=== PATIENT | female | born 1980 | race Caucasian/White ===

== ENCOUNTER 2018-04-06 14:26 | Inpatient (IN) ==
[2018-04-06] MEDS ORDERED: NS 1000 ML 1,000 ML ONE ×5 (14:27→23:48)
[2018-04-06] MEDS ORDERED: NS 1000 ML 1,000 ML IV ONE ×3 (15:06→16:25)
[2018-04-06 15:22] LABS: BASOPHILS # (AUTO) 0.1 X10^3/uL (0.0-0.1); BASOPHILS % (AUTO) 0.2 % (0.2-1.0); HEMATOCRIT 36.5 % (36.0-47.0); HEMOGLOBIN 11.5 g/dL (12.0-16.0); LYMPHOCYTES # (AUTO) 1.6 X10^3/uL (1.3-2.9); LYMPHOCYTES % (AUTO) 5.9 % (21.0-51.0); MEAN CORPUSCULAR HEMOGLOBIN 25.5 pg (27.0-34.0); MEAN CORPUSCULAR HGB CONC 31.4 g/dL (33.0-35.0); MEAN CORPUSCULAR VOLUME 81.2 fL (80.0-100.0); MEAN PLATELET VOLUME 9.6 fL (7.4-11.0); MONOCYTES # (AUTO) 1.2 x10^3/uL (0.3-0.8); MONOCYTES % (AUTO) 4.3 % (0.0-13.0); NEUTROPHILS # (AUTO) 24.3 x10^3/uL (2.2-4.8); NEUTROPHILS % (AUTO) 89.6 % (42.0-75.0); PLATELET COUNT 359 X10^3/uL (150.0-450.0); RED CELL DISTRIBUTION WIDTH 14.9 % (11.6-16.5)
[2018-04-06 15:26] LABS: WHITE BLOOD COUNT 27.8 X10^3/uL (3.6-10.0)
[2018-04-06 15:32] LABS: BAND NEUTROPHILS % 6 % (0-10); HYPOCHROMASIA SLIGHT; PLATELET MORPHOLOGY COMMENT NORMAL (NORMAL)
[2018-04-06 15:33] LABS: BURR CELLS SLIGHT
[2018-04-06 15:34] LABS: ABG BASE EXCESS -7.5 mmol/L (-2.0-2.0); ABG HCO3 17.3 mmol/L (22-26); FRACTIONATED INSPIRED OXYGEN 28
[2018-04-06 15:48] LABS: BILIRUBIN,URINE NEGATIVE (NEGATIVE); BLOOD/HEMOGLOBIN,URINE NEGATIVE (NEGATIVE); GLUCOSE, URINE 4+ (NEGATIVE); KETONES,URINE 2+ (NEGATIVE); LEUKOCYTE ESTERASE ,URINE NEGATIVE (NEGATIVE); NITRITES,URINE NEGATIVE (NEGATIVE); PROTEIN,URINE NEGATIVE (NEGATIVE); UROBILINOGEN,URINE NORMAL (NORMAL)
[2018-04-06 15:57] LABS: APPEARANCE,URINE HAZY (CLEAR); COLOR,URINE YELLOW (YELLOW)
[2018-04-06] MEDS ORDERED: LEVAQUIN PREMIX IV 750 MG 750 MG/150 ML BAG IV ONE (15:58)
[2018-04-06 16:05] LABS: ALBUMIN 3.3 g/dL (3.4-5.0); CALCIUM 8.3 mg/dL (8.5-10.1); CARBON DIOXIDE 18.7 mmol/L (21-32); COR CA(FOR HYPOALB) 8.9 mg/dL (8.5-10.1); CREATININE 1.68 mg/dL (0.55-1.02); TOTAL PROTEIN 6.7 g/dL (6.4-8.2)
--- NOTE | 2018-04-06 16:40 | DR.GENAD ---
HPI Time Seen Time Seen by Provider: 04/06/18 15:06 Complaint/Symptoms Chief Complaint:: EMS OUT TO PT WITH > GLUCOSE AND UPON ARRIVAL EMS MONITOR READS HIGH, NS BOLUS STARTED PT IS LETHARGIC AND SHE HAS A DM PUMP ON AND 02 2 LPM INFUSING AND SHALLOW RESP PER EMS WITH A BP OF 70/30'S ,,BR Self Treatment fo Chief Complaint: SPOUSE SAYS PT HAS BEEN HAVING N/V FOR DAYS AND SHE HAS BEEN HAVING AMS ,BR Source History Provided: Patient and EMS Mode of Arrival Mode of Arrival: EMS Timing Onset of Chief Complaint: 04/05/18 PMH PMH Past Medical History: Yes Past Medical History: Anxiety, Arthritis and Diabetes Past Surgical History: Yes Surgical History: Cholecystectomy and [employer] Surgery Family History History of Family Medical Conditions: Yes Family Medical History: Diabetes Mellitus Social History Does patient currently use any type of tobacco product: No Have you used tobacco products in the last 12 months: No Type of Tobacco Use: None Does any household member use tobacco: No Alcohol Use: None Do you use any recreational Drugs:: No Lives With: Family Lives Where: Home infectious screening In the last 2 months have you had wt loss of >10#?: NO Have you had fever, night sweats or hemotysis?: No Have you traveled outside the country in the last 6 months?: No Isolation: Standard PE Vital Signs Vitals: Temperature 99.3 F Pulse Rate 84 Respiratory Rate 17 Blood Pressure [Right Arm] 125/53 Blood Pressure 91/51 O2 Sat by Pulse Oximetry 99 General Limitations: No Limitations and Language Barrier General Appearance: Alert and In No Apparent Distress Head Head Exam: Normal Inspection, Atraumatic and Normocephalic Eyes Eye exam: Normal Appearance, PERRL and EOMI ENT ENT Exam: Normal Exam and Normal Oropharynx External Ear Exam: Normal External Inspection TM/Canal Exam: Bilateral: Normal Nose Exam: Normal Nose Exam Mouth Exam: Normal Inspection Throat Exam: Normal Inspection Neck Neck Exam: Normal Inspection Chest Chest Inspection: Normal Inspection Respiratory Respiratory Exam: Normal Lung Sounds Bilat Respiratory Exam: Bilateral: Clear to Auscultation Cardiovascular Cardiovascular Exam: Regular Rate and Bradycardia Abdominal Exam Abdominal Exam: Normal Inspection Extremities Extremities Exam: Normal Inspection Neurologic Neurological Exam: Other (lethargic) Skin Skin Exam: Warm, Dry and Intact COURSE Treatment Treatment: Bolus of 2L NS w/o change in BP or sensorium, will give dobutamine to increase BP. ROR Labs Reviewed Laboratory Results Reviewed?: Yes Result Diagrams: 04/07/18 05:38 04/07/18 05:38 Laboratory: WBC 29.5 X10^3/uL (3.6-10.0) H 04/07/18 05:38 RBC 4.26 X10^6/uL (3.5-5.4) 04/07/18 05:38 Hgb 10.7 g/dL (12.0-16.0) L 04/07/18 05:38 Hct 33.6 % (36.0-47.0) L 04/07/18 05:38 MCV 78.8 fL (80.0-100.0) L 04/07/18 05:38 MCH 25.2 pg (27.0-34.0) L 04/07/18 05:38 MCHC 32.0 g/dL (33.0-35.0) L 04/07/18 05:38 RDW 14.6 % (11.6-16.5) 04/07/18 05:38 Plt Count 300 X10^3/uL (150.0-450.0) 04/07/18 05:38 Plt Count Comment Adequate (ADEQUATE) 04/07/18 05:38 MPV 9.0 fL (7.4-11.0) 04/07/18 05:38 Neut % (Auto) 87.1 % (42.0-75.0) H 04/07/18 05:38 Lymph % (Auto) 5.9 % (21.0-51.0) L 04/07/18 05:38 [place] % (Auto) 5.7 % (0.0-13.0) 04/07/18 05:38 Eos % (Auto) 1.3 % (0.9-2.9) 04/07/18 05:38 Baso % (Auto) 0 % (0.2-1.0) L 04/07/18 05:38 Neut # (Auto) 25.7 x10^3/uL (2.2-4.8) H 04/07/18 05:38 Lymph # (Auto) 1.7 X10^3/uL (1.3-2.9) 04/07/18 05:38 [place] # (Auto) 1.7 x10^3/uL (0.3-0.8) H 04/07/18 05:38 Eos # (Auto) 0.4 x10^3/uL (0.0-0.2) H 04/07/18 05:38 Baso # (Auto) 0.0 X10^3/uL (0.0-0.1) 04/07/18 05:38 Absolute Nucleated RBC 0.0 /100WBC 04/07/18 05:38 Total Counted 100 04/07/18 05:38 Neutrophils % (Manual) 82 % (39-76) H 04/07/18 05:38 Band Neutrophils % 7 % (0-10) 04/07/18 05:38 Lymphocytes % (Manual) 8 % (13-43) L 04/07/18 05:38 Monocytes % (Manual) 3 % (4-9) L 04/07/18 05:38 Plt Morphology Comment Normal (NORMAL) 04/07/18 05:38 RBC Morphology Abnormal (NORMAL) A 04/07/18 05:38 Hypochromasia Slight A 04/07/18 05:38 Adriana Cells Slight A 04/06/18 15:40 Sample Site Rbr 04/06/18 15:19 ABG pH 7.340 (7.35-7.45) L 04/06/18 15:19 ABG pCO2 32.0 mmHg (35.0-45.0) L 04/06/18 15:19 ABG pO2 112.0 mmHg (80.0-100.0) H 04/06/18 15:19 ABG HCO3 17.3 mmol/L (22-26) L* 04/06/18 15:19 ABG O2 Saturation 98.0 % (90-100) 04/06/18 15:19 ABG Base Excess -7.5 mmol/L (-2.0-2.0) L 04/06/18 15:19 Kristopher Test N/a 04/06/18 15:19 A-a Gradient 48.0 mmHg 04/06/18 15:19 FiO2 28 04/06/18 15:19 Blood Gas Comments Pt td well elj 04/06/18 15:19 Sodium 139 mmol/L (136-145) 04/07/18 05:38 Corrected Sodium 142 mmol/L (136-145) 04/07/18 05:38 Potassium 4.5 mmol/L (3.5-5.1) 04/07/18 05:38 Chloride 107 mmol/L (98-107) 04/07/18 05:38 Carbon Dioxide 17.3 mmol/L (21-32) L 04/07/18 05:38 BUN 37 mg/dL (7-18) H 04/07/18 05:38 Creatinine 1.25 mg/dL (0.55-1.02) H 04/07/18 05:38 Est GFR (MDRD) Af Amer > 60 (>60) 04/07/18 05:38 Est GFR (MDRD) Non-Af 51 (>60) L 04/07/18 05:38 Glucose 233 mg/dL (65-99) H 04/07/18 05:38 POC Glucose (mg/dL) 234 mg/dL (65-99) H 04/07/18 05:36 Lactic Acid 3.6 mmol/L (0.4-2.0) H 04/06/18 20:28 Calcium 7.9 mg/dL (8.5-10.1) L 04/07/18 05:38 Corrected Calcium 8.7 mg/dL (8.5-10.1) 04/07/18 05:38 Magnesium 2.4 mg/dL (1.7-2.9) 04/06/18 17:52 Total Bilirubin 0.30 mg/dL (0.2-1.0) 04/07/18 05:38 AST 46 Units/L (15-37) H 04/07/18 05:38 ALT 70 Units/L (12-78) 04/07/18 05:38 Alkaline Phosphatase 153 Units/L (46-116) H 04/07/18 05:38 Lactate Dehydrogenase 147 Units/L (81-234) 04/06/18 15:40 C-Reactive Protein 70.40 mg/L (0-3.0) H 04/06/18 15:40 Total Protein 6.4 g/dL (6.4-8.2) 04/07/18 05:38 Albumin 3.0 g/dL (3.4-5.0) L 04/07/18 05:38 Globulin 3.4 g/dL (2.5-4.5) 04/07/18 05:38 Albumin/Globulin Ratio 0.9 Ratio (1.1-2.1) L 04/07/18 05:38 Specimen Type Catherized urine 04/06/18 15:37 Urine Color Yellow (YELLOW) 04/06/18 15:37 Urine Appearance Hazy (CLEAR) 04/06/18 15:37 Urine pH 5.0 (5.0 - 8.0) 04/06/18 15:37 Ur Specific [place] 1.010 (1.000-1.030) 04/06/18 15:37 Urine Protein Negative (NEGATIVE) 04/06/18 15:37 Urine Glucose (UA) 4+ (NEGATIVE) 04/06/18 15:37 Urine Ketones 2+ (NEGATIVE) 04/06/18 15:37 Urine Occult Blood Negative (NEGATIVE) 04/06/18 15:37 Urine Nitrite Negative (NEGATIVE) 04/06/18 15:37 Urine Bilirubin Negative (NEGATIVE) 04/06/18 15:37 Urine Urobilinogen Normal (NORMAL) 04/06/18 15:37 Ur Leukocyte Esterase Negative (NEGATIVE) 04/06/18 15:37 Urine Opiates Screen Negative (NEG=<300) 04/06/18 15:37 Urine Methadone Screen Negative (NEG=<300) 04/06/18 15:37 Ur Barbiturates Screen Negative (NEG=<200) 04/06/18 15:37 Ur Phencyclidine Scrn Negative (NEG=<25) 04/06/18 15:37 Ur Amphetamines Screen Negative (NEG=<1000) 04/06/18 15:37 U Benzodiazepines Scrn Negative (NEG=<200) 04/06/18 15:37 Urine Cocaine Screen Negative (NEG=<300) 04/06/18 15:37 U Marijuana (THC) Screen Negative (NEG=<50) 04/06/18 15:37 Acetone, Semi-Quant Small (NEGATIVE) H 04/07/18 05:38
[2018-04-06] MEDS ORDERED: HumuLIN R IV ONE (16:52)
[2018-04-06] MEDS ORDERED: NS 100 ML IV 100 ML IV ONE (16:55)
[2018-04-06] MEDS ORDERED: HumuLIN R ONE (16:57)
[2018-04-06] MEDS ORDERED: DOBUTAMINE HCL 1,000 MG in D5W 250 ML IV 170 ML IV PRN (17:09)
[2018-04-06] MEDS ORDERED: ROMAZICON INJ 0.5 MG ONE (17:56)
[2018-04-06] MEDS: ROMAZICON INJ 0.5 MG IVP ONE ×2 (17:58→18:17)
[2018-04-06] MEDS: NS 1000 ML 1,000 ML IV ONE (19:00)
[2018-04-06] MEDS: OTBSDRIP XX SCH ×3 (20:23→23:52)
[2018-04-06] MEDS ORDERED: NORCO 5/325 MG TAB PO PRN (20:24)
[2018-04-06] MEDS: SNACK - Diabetic Appropriate PO SCH (22:11)
[2018-04-06 23:04] VITALS: BMI 27.9
[2018-04-07] MEDS: PERCOCET TAB 5/325 MG PO PRN ×3 (00:30→20:03)
[2018-04-07] MEDS: ZOFRAN INJ 4 MG VIAL IVP PRN ×2 (00:30→18:42)
[2018-04-07] MEDS: NS 1000 ML 1,000 ML IV ONE (01:34)
[2018-04-07] MEDS: OTBSDRIP XX SCH ×2 (01:46→03:54)
[2018-04-07] MEDS: HumuLIN R SUBCUT PRN ×6 (01:51→20:43)
[2018-04-07] MEDS: VALIUM PO PRN ×2 (03:25→12:07)
[2018-04-07] MEDS: NS 1000 ML 1,000 ML IV SCH ×4 (04:00→20:03)
[2018-04-07 06:36] LABS: BASOPHILS % (AUTO) 0 % (0.2-1.0); EOSINOPHILS # (AUTO) 0.4 x10^3/uL (0.0-0.2); EOSINOPHILS % (AUTO) 1.3 % (0.9-2.9); HEMATOCRIT 33.6 % (36.0-47.0); HEMOGLOBIN 10.7 g/dL (12.0-16.0); LYMPHOCYTES # (AUTO) 1.7 X10^3/uL (1.3-2.9); LYMPHOCYTES % (AUTO) 5.9 % (21.0-51.0); MEAN CORPUSCULAR HEMOGLOBIN 25.2 pg (27.0-34.0); MEAN CORPUSCULAR VOLUME 78.8 fL (80.0-100.0); MONOCYTES # (AUTO) 1.7 x10^3/uL (0.3-0.8); MONOCYTES % (AUTO) 5.7 % (0.0-13.0); NEUTROPHILS # (AUTO) 25.7 x10^3/uL (2.2-4.8); NEUTROPHILS % (AUTO) 87.1 % (42.0-75.0); PLATELET COUNT 300 X10^3/uL (150.0-450.0); RED BLOOD COUNT 4.26 X10^6/uL (3.5-5.4); RED CELL DISTRIBUTION WIDTH 14.6 % (11.6-16.5); WHITE BLOOD COUNT 29.5 X10^3/uL (3.6-10.0)
[2018-04-07 07:05] LABS: ALANINE AMINOTRANSFERASE 70 Units/L (12-78); ALKALINE PHOSPHATASE 153 Units/L (46-116); ASPARTATE AMINO TRANSFERASE 46 Units/L (15-37); BLOOD UREA NITROGEN 37 mg/dL (7-18); CALCIUM 7.9 mg/dL (8.5-10.1); CARBON DIOXIDE 17.3 mmol/L (21-32); CHLORIDE 107 mmol/L (98-107); COR CA(FOR HYPOALB) 8.7 mg/dL (8.5-10.1); COR NA(FOR HYPERGLY) 142 mmol/L (136-145); CREATININE 1.25 mg/dL (0.55-1.02); SODIUM 139 mmol/L (136-145); TOTAL PROTEIN 6.4 g/dL (6.4-8.2); eGFR NON BLACK RACES 51 (>60)
[2018-04-07 07:09] LABS: BAND NEUTROPHILS % 7 % (0-10)
[2018-04-07 07:10] LABS: HYPOCHROMASIA SLIGHT; PLATELET MORPHOLOGY COMMENT NORMAL (NORMAL)
[2018-04-07] MEDS ORDERED: LEVAQUIN PREMIX IV 750 MG 750 MG/150 ML BAG IV SCH (09:00)
[2018-04-07] MEDS: LEVAQUIN PREMIX IV 500 MG 500 MG/100 ML BAG IV SCH (10:07)
[2018-04-07] MEDS ORDERED: SALINE 3% 15 ML NEB TX NEB ONE (12:26)
--- NOTE | 2018-04-07 13:47 | DR.H&P ---
H&P - History & Physical for Day of: H&P Date: 04/06/18 - Chief Complaint Chief Complaint: AMS - History of Present Illness History of Present Illness: 37 WF ER ADMISSION AFTER PRESENTING WITH EMS, ALTERED MENTAL STATUS, KNOWN TYPE I DM, HYPREGLYCEMIA, CO CHEST COLD FOR SEVERAL DAYS, N/V AND ELEVATED BLOOD SUGAR. PT FAMILY REPORTS SHE HAS HX OF "KIDNEY INFECTIONS" CAUSING CONFUSION, AMS. PT HAD GLUCOSE >700 IN ER, BUN [address] PT [address] HEAD W/O ACUTE FINDINGS. PT STARTED ON INSULIN THERAPY, IV ABTX, IV HYDRATION, SUPPLEMENTAL O2, ADMITTED TO ICU - Past Medical History Past Medical History: Diabetes, Anxiety, Arthritis - Past Surgical History Surgical History: Cholecystectomy, [employer] Surgery - Family History Family Medical History: Diabetes Mellitus - Social History Does patient currently use any type of tobacco product: No Have you used tobacco products in the last 12 months: No Type of Tobacco Use: None Does any household member use tobacco: No Alcohol Use: None Drug Use: None - Medications Home Medications: promethazine [From Phenergan] Allergy (Unknown, Verified 04/07/18 00:19) ceftriaxone [From Rocephin] Allergy (Verified 04/06/18 15:20) Latex, Natural Rubber Allergy (Verified 04/07/18 00:59) meperidine [From Demerol] Allergy (Verified 04/06/18 15:20) penicillin V Allergy (Verified 04/06/18 15:20) tape Allergy (Uncoded 04/07/18 00:59) CONTINUE taking the following medications dicyclomine 10 mg PO TIDWM 04/06/18 [History] escitalopram oxalate 10 mg PO DAILY 04/06/18 [History] gabapentin 300 mg PO HS 04/06/18 [History] hydrochlorothiazide 12.5 tab/day PO DAILY PRN 04/06/18 [History] oxycodone-acetaminophen 1 tab PO BID PRN 04/06/18 [History] diphenhydramine HCl [Benadryl] 25 mg PO DAILY PRN 04/07/18 [History] ergocalciferol (vitamin D2) 50,000 unit PO MONTHLY 04/07/18 [History] insulin aspart U-100 [Novolog U-100 Insulin aspart] 100 units CONTINUOUS SUBCUTANEOUS INFUSION DAILY 04/07/18 [History] loratadine 10 mg PO DAILY 04/07/18 [History] montelukast 10 mg PO DAILY 04/07/18 [History] pantoprazole 40 mg PO DAILY 04/07/18 [History] pravastatin 20 mg PO DAILY 04/07/18 [History] - Review of Systems Constitutional: Malaise Eyes: No Symptoms Reported ENT: No Symptoms Reported Respiratory: Cough Cardiovascular: No Symptoms Reported Gastrointestinal: Nausea, Vomiting. denies: Abdominal Pain, Constipation Genitourinary: No Symptoms Reported Musculoskeletal: No Symptoms Reported Skin: No Symptoms Reported Neurological: Weakness, Confusion - Physical Exam Vital Signs: Temperature 98.5 F Pulse Rate 89 Respiratory Rate 21 Blood Pressure [Right Arm] 125/53 Blood Pressure 105/54 O2 Sat by Pulse Oximetry 97 Oriented: Person Eyes: Normal Ear: Normal Nose: Normal Throat: Normal Respiratory: RLL Diminished, LLL Diminished Cardiovascular: Normal : Normal Auscultation: Bowel Sounds: Normal Palpation: Normal Tenderness: Normal Skin: Normal Musculoskeletal: Normal Psychiatric: Anxiety Speech Pattern: Delayed - Assessment/Plan (1) Altered mental status Status: Acute Plan: ADMIT ICU, VERIFY HOME MEDS. CONTINUOUS RESP THERAPY, SUPPLEMENTAL O2. CARDIAC AND BP MONITORING. ARCOS CATH WITH STRICT I & OS, CXR AND CT HEAD IN ER. ACETONE, BS CONTROL, INSULIN, GENTLE HYDRATION. REPEAT AM LABS, ABG ON ADMISSION (2) DKA (diabetic ketoacidosis) Status: Acute (3) Leukocytosis Status: Acute (4) Acute bronchitis Status: Acute - Allergies Allergies/Adverse Reactions: Allergies Allergy/AdvReac Type Severity Reaction Status Date / Time promethazine [From Phenergan] Allergy Unknown Verified 04/07/18 00:19 ceftriaxone [From Rocephin] Allergy Verified 04/06/18 15:20 Latex, Natural Rubber Allergy Verified 04/07/18 00:59 meperidine [From Demerol] Allergy Verified 04/06/18 15:20 penicillin V Allergy Verified 04/06/18 15:20 tape Allergy Uncoded 04/07/18 00:59
[2018-04-07 14:51] LABS: LACTIC ACID 1.1 mmol/L (0.4-2.0)
[2018-04-07] MEDS: ZITHROMAX INJ 500 MG VIAL 500 MG in NS 250 ML IV 250 ML IV SCH (14:56)
[2018-04-07 16:03] LABS: ABG BASE EXCESS -0.9 mmol/L (-2.0-2.0); ABG HCO3 23.5 mmol/L (22-26); FRACTIONATED INSPIRED OXYGEN 21
[2018-04-07] MEDS: SNACK - Diabetic Appropriate PO SCH (20:03)
[2018-04-07] MEDS: MILK OF MAGNESIA PO SCH (21:32)
[2018-04-07] MEDS: COLACE CAP 100 MG PO SCH (21:32)
[2018-04-08] MEDS: MAALOX or MYLANTA PO PRN ×2 (05:06→19:04)
[2018-04-08] MEDS: NS 1000 ML 1,000 ML IV SCH ×2 (05:06→19:03)
[2018-04-08] MEDS: HumuLIN R SUBCUT PRN ×4 (05:58→20:15)
[2018-04-08 06:13] LABS: BASOPHILS % (AUTO) 0.3 % (0.2-1.0); EOSINOPHILS % (AUTO) 0.2 % (0.9-2.9); HEMATOCRIT 36.1 % (36.0-47.0); HEMOGLOBIN 11.7 g/dL (12.0-16.0); LYMPHOCYTES # (AUTO) 3.1 X10^3/uL (1.3-2.9); LYMPHOCYTES % (AUTO) 16.7 % (21.0-51.0); MEAN CORPUSCULAR HEMOGLOBIN 25.3 pg (27.0-34.0); MEAN CORPUSCULAR HGB CONC 32.5 g/dL (33.0-35.0); MEAN CORPUSCULAR VOLUME 77.9 fL (80.0-100.0); MEAN PLATELET VOLUME 9.1 fL (7.4-11.0); MONOCYTES # (AUTO) 0.6 x10^3/uL (0.3-0.8); MONOCYTES % (AUTO) 3.3 % (0.0-13.0); NEUTROPHILS # (AUTO) 14.7 x10^3/uL (2.2-4.8); NEUTROPHILS % (AUTO) 79.5 % (42.0-75.0); PLATELET COUNT 250 X10^3/uL (150.0-450.0); RED BLOOD COUNT 4.63 X10^6/uL (3.5-5.4); RED CELL DISTRIBUTION WIDTH 14.9 % (11.6-16.5); WHITE BLOOD COUNT 18.5 X10^3/uL (3.6-10.0)
[2018-04-08 06:37] LABS: ALANINE AMINOTRANSFERASE 79 Units/L (12-78); ALBUMIN 3.1 g/dL (3.4-5.0); ALKALINE PHOSPHATASE 164 Units/L (46-116); ASPARTATE AMINO TRANSFERASE 89 Units/L (15-37); BLOOD UREA NITROGEN 18 mg/dL (7-18); CARBON DIOXIDE 23.2 mmol/L (21-32); CHLORIDE 106 mmol/L (98-107); COR CA(FOR HYPOALB) 8.7 mg/dL (8.5-10.1); COR NA(FOR HYPERGLY) 141 mmol/L (136-145); SODIUM 138 mmol/L (136-145); TOTAL PROTEIN 6.6 g/dL (6.4-8.2); eGFR NON BLACK RACES > 60 (>60)
[2018-04-08 07:05] LABS: PLATELET MORPHOLOGY COMMENT NORMAL (NORMAL)
[2018-04-08 07:06] LABS: HYPOCHROMASIA SLIGHT
[2018-04-08 07:07] LABS: BURR CELLS SLIGHT; OVALOCYTES SLIGHT
[2018-04-08] MEDS: LEVAQUIN PREMIX IV 500 MG 500 MG/100 ML BAG IV SCH (08:27)
[2018-04-08] MEDS: ZITHROMAX INJ 500 MG VIAL 500 MG in NS 250 ML IV 250 ML IV SCH (08:27)
[2018-04-08] MEDS: PEPCID 20 MG IV PREMIX* 20 MG/50 ML BAG IV SCH ×2 (08:27→20:01)
[2018-04-08] MEDS: ZOFRAN INJ 4 MG VIAL IVP PRN (09:12)
--- NOTE | 2018-04-08 14:14 | PCM.PROG ---
Progress Note - Progress Note for Day of Date of Exam: 04/07/18 - Subjective Subjective: 37 WF ER ADMISSION WITH AMS, HYPERGLYCEMIA. PT AWAKE AND ALERT THIS AM, DENIES ANY PAIN. CO RECENT COUGH WITH CHEST CONGESTION, AND HAS HAD EPISODE OF CONFUSION RELATED TO UTI IN THE PAST. PT WBC29.5 HGB 10.7 BUN 37/CREAT 1.25. CXR CLEAR ON ADMISSION, CULTURE PENDING AT THIS TIME. PT ON IV LEVAQUIN, ADDED ZITHROMAX IV, RESP CONSULT. PLAN TO CONTINUE BS CONTROL, IV HYDRATION. I & OS, REPEAT AM LABS, REPEAT ACETONE- SMALL, BS IMPROVING - Past Medical Family Social History Past Med/Fam/Surg Hx: No changes since H&P Allergies: Allergies promethazine [From Phenergan] Allergy (Unknown, Verified 04/07/18 00:19) ceftriaxone [From Rocephin] Allergy (Verified 04/06/18 15:20) Latex, Natural Rubber Allergy (Verified 04/07/18 00:59) meperidine [From Demerol] Allergy (Verified 04/06/18 15:20) penicillin V Allergy (Verified 04/06/18 15:20) tape Allergy (Uncoded 04/07/18 00:59) - Review of Systems ROS: No change since H&P - Vital Signs and I&O's Vital Signs: Temperature 98.0 F Pulse Rate 78 Respiratory Rate 34 Blood Pressure [Right Arm] 125/53 Blood Pressure 100/56 O2 Sat by Pulse Oximetry 96 Intake and Output: Intake & Output 04/06/18 04/07/18 04/08/18 04/09/18 11:59 11:59 11:59 11:59 Intake Total 3539 / 3539 4702 / 4702 Output Total 1500 / 1500 850 / 850 Balance 2038 / 2038 3852 / 3852 - Physical Exam Oriented: Normal Eyes: Normal Ear: Normal Nose: Normal Throat: Normal Respiratory: Diminished Cardiovascular: Normal : Normal Auscultation: Bowel Sounds: Normal Tenderness: Normal Skin: Normal Musculoskeletal: Normal Psychiatric: Anxiety Speech Pattern: Clear, Appropriate - Laboratory and Diagnostics Result Diagrams: 04/08/18 05:14 04/08/18 05:14 Labs: 04/06/18 20:28 Blood Blood Culture - Preliminary 04/06/18 14:55 Blood Blood Culture - Preliminary 04/07/18 16:40 Sputum - Expectorated Sputum Sputum Culture - Preliminary 04/07/18 16:40 Sputum - Expectorated Sputum - Final Laboratory WBC 18.5 X10^3/uL (3.6-10.0) H D 04/08/18 05:14 RBC 4.63 X10^6/uL (3.5-5.4) 04/08/18 05:14 Hgb 11.7 g/dL (12.0-16.0) L 04/08/18 05:14 Hct 36.1 % (36.0-47.0) 04/08/18 05:14 MCV 77.9 fL (80.0-100.0) L 04/08/18 05:14 MCH 25.3 pg (27.0-34.0) L 04/08/18 05:14 MCHC 32.5 g/dL (33.0-35.0) L 04/08/18 05:14 RDW 14.9 % (11.6-16.5) 04/08/18 05:14 Plt Count 250 X10^3/uL (150.0-450.0) 04/08/18 05:14 Plt Count Comment Adequate (ADEQUATE) 04/08/18 05:14 MPV 9.1 fL (7.4-11.0) 04/08/18 05:14 Neut % (Auto) 79.5 % (42.0-75.0) H 04/08/18 05:14 Lymph % (Auto) 16.7 % (21.0-51.0) L 04/08/18 05:14 [place] % (Auto) 3.3 % (0.0-13.0) 04/08/18 05:14 Eos % (Auto) 0.2 % (0.9-2.9) L 04/08/18 05:14 Baso % (Auto) 0.3 % (0.2-1.0) 04/08/18 05:14 Neut # (Auto) 14.7 x10^3/uL (2.2-4.8) H 04/08/18 05:14 Lymph # (Auto) 3.1 X10^3/uL (1.3-2.9) H 04/08/18 05:14 [place] # (Auto) 0.6 x10^3/uL (0.3-0.8) 04/08/18 05:14 Eos # (Auto) 0.0 x10^3/uL (0.0-0.2) 04/08/18 05:14 Baso # (Auto) 0.0 X10^3/uL (0.0-0.1) 04/08/18 05:14 Absolute Nucleated RBC 0.0 /100WBC 04/08/18 05:14 Total Counted 100 04/07/18 05:38 Neutrophils % (Manual) 82 % (39-76) H 04/07/18 05:38 Band Neutrophils % 7 % (0-10) 04/07/18 05:38 Lymphocytes % (Manual) 8 % (13-43) L 04/07/18 05:38 Monocytes % (Manual) 3 % (4-9) L 04/07/18 05:38 Plt Morphology Comment Normal (NORMAL) 04/08/18 05:14 RBC Morphology Abnormal (NORMAL) A 04/08/18 05:14 Hypochromasia Slight A 04/08/18 05:14 Ovalocytes Slight A 04/08/18 05:14 Adriana Cells Slight A 04/08/18 05:14 Sample Site Right brachial 04/07/18 15:48 ABG pH 7.410 (7.35-7.45) 04/07/18 15:48 ABG pCO2 37.0 mmHg (35.0-45.0) 04/07/18 15:48 ABG pO2 80.0 mmHg (80.0-100.0) 04/07/18 15:48 ABG HCO3 23.5 mmol/L (22-26) 04/07/18 15:48 ABG O2 Saturation 96.0 % (90-100) 04/07/18 15:48 ABG Base Excess -0.9 mmol/L (-2.0-2.0) 04/07/18 15:48 Kristopher Test Na 04/07/18 15:48 A-a Gradient 23.0 mmHg 04/07/18 15:48 FiO2 21 04/07/18 15:48 Blood Gas Comments Franko well aw 04/07/18 15:48 Sodium 138 mmol/L (136-145) 04/08/18 05:14 Corrected Sodium 141 mmol/L (136-145) 04/08/18 05:14 Potassium 4.0 mmol/L (3.5-5.1) 04/08/18 05:14 Chloride 106 mmol/L (98-107) 04/08/18 05:14 Carbon Dioxide 23.2 mmol/L (21-32) 04/08/18 05:14 BUN 18 mg/dL (7-18) 04/08/18 05:14 Creatinine 0.90 mg/dL (0.55-1.02) 04/08/18 05:14 Est GFR (MDRD) Af Amer > 60 (>60) 04/08/18 05:14 Est GFR (MDRD) Non-Af > 60 (>60) 04/08/18 05:14 Glucose 219 mg/dL (65-99) H 04/08/18 05:14 POC Glucose (mg/dL) 180 mg/dL (65-99) H 04/08/18 11:28 Lactic Acid 1.1 mmol/L (0.4-2.0) 04/07/18 13:59 Calcium 8.0 mg/dL (8.5-10.1) L 04/08/18 05:14 Corrected Calcium 8.7 mg/dL (8.5-10.1) 04/08/18 05:14 Magnesium 2.4 mg/dL (1.7-2.9) 04/06/18 17:52 Total Bilirubin 0.20 mg/dL (0.2-1.0) 04/08/18 05:14 AST 89 Units/L (15-37) H 04/08/18 05:14 ALT 79 Units/L (12-78) H 04/08/18 05:14 Alkaline Phosphatase 164 Units/L (46-116) H 04/08/18 05:14 Lactate Dehydrogenase 147 Units/L (81-234) 04/06/18 15:40 C-Reactive Protein 70.40 mg/L (0-3.0) H 04/06/18 15:40 Total Protein 6.6 g/dL (6.4-8.2) 04/08/18 05:14 Albumin 3.1 g/dL (3.4-5.0) L 04/08/18 05:14 Globulin 3.5 g/dL (2.5-4.5) 04/08/18 05:14 Albumin/Globulin Ratio 0.9 Ratio (1.1-2.1) L 04/08/18 05:14 Amylase 39 Units/L (25-115) 04/07/18 13:59 Lipase 80 Units/L (73-393) 04/07/18 13:59 Specimen Type Catherized urine 04/06/18 15:37 Urine Color Yellow (YELLOW) 04/06/18 15:37 Urine Appearance Hazy (CLEAR) 04/06/18 15:37 Urine pH 5.0 (5.0 - 8.0) 04/06/18 15:37 Ur Specific [place] 1.010 (1.000-1.030) 04/06/18 15:37 Urine Protein Negative (NEGATIVE) 04/06/18 15:37 Urine Glucose (UA) 4+ (NEGATIVE) 04/06/18 15:37 Urine Ketones 2+ (NEGATIVE) 04/06/18 15:37 Urine Occult Blood Negative (NEGATIVE) 04/06/18 15:37 Urine Nitrite Negative (NEGATIVE) 04/06/18 15:37 Urine Bilirubin Negative (NEGATIVE) 04/06/18 15:37 Urine Urobilinogen Normal (NORMAL) 04/06/18 15:37 Ur Leukocyte Esterase Negative (NEGATIVE) 04/06/18 15:37 Urine Opiates Screen Negative (NEG=<300) 04/06/18 15:37 Urine Methadone Screen Negative (NEG=<300) 04/06/18 15:37 Ur Barbiturates Screen Negative (NEG=<200) 04/06/18 15:37 Ur Phencyclidine Scrn Negative (NEG=<25) 04/06/18 15:37 Ur Amphetamines Screen Negative (NEG=<1000) 04/06/18 15:37 U Benzodiazepines Scrn Negative (NEG=<200) 04/06/18 15:37 Urine Cocaine Screen Negative (NEG=<300) 04/06/18 15:37 U Marijuana (THC) Screen Negative (NEG=<50) 04/06/18 15:37 Acetone, Semi-Quant Small (NEGATIVE) H 04/07/18 05:38 Influenza Type A (PCR) Negative (NEGATIVE) 04/07/18 16:40 Influenza Type B (PCR) Negative (NEGATIVE) 04/07/18 16:40 - Plan (1) Acute bronchitis Status: Acute Plan: CULTURES PENDING. CONTINUE JET NEBS, IV ATBX. SUPPLEMENTAL O2 PRN. BLOOD SUGAR CONTROL, AM LABS. I &OS (2) Altered mental status Status: Resolved Plan: CONTINUOUS RESP THERAPY, SUPPLEMENTAL O2. CARDIAC AND BP MONITORING. ARCOS CATH WITH STRICT I & OS, (3) DKA (diabetic ketoacidosis) Status: Acute (4) Leukocytosis Status: Acute
--- NOTE | 2018-04-08 14:19 | PCM.PROG ---
Progress Note - Progress Note for Day of Date of Exam: 04/08/18 - Subjective Subjective: 37 WF ER ADMISSION WITH AMS, HYPERGLYCEMIA. PT AWAKE AND ALERT THIS AM, DENIES ANY PAIN. CO RECENT COUGH WITH CHEST CONGESTION, AND HAS HAD EPISODE OF CONFUSION RELATED TO UTI IN THE PAST. PT 18.5 HGB 11.7 BUN 18/ CREAT 0.9 CXR CLEAR ON ADMISSION, CULTURE PENDING AT THIS TIME. PT ON IV LEVAQUIN AND ZITHROMAX IV, RESP CONSULT. PLAN TO CONTINUE BS CONTROL.BS 219 THIS AM CO2 23.2. PT CO FALLING ASLEEP WHILE EATING THIS AM. CXR ORDERED R/O ASPIRATION, NO RESP DISTRESS NOTED. - Past Medical Family Social History Past Med/Fam/Surg Hx: No changes since H&P Allergies: Allergies promethazine [From Phenergan] Allergy (Unknown, Verified 04/07/18 00:19) ceftriaxone [From Rocephin] Allergy (Verified 04/06/18 15:20) Latex, Natural Rubber Allergy (Verified 04/07/18 00:59) meperidine [From Demerol] Allergy (Verified 04/06/18 15:20) penicillin V Allergy (Verified 04/06/18 15:20) tape Allergy (Uncoded 04/07/18 00:59) - Review of Systems ROS: No change since H&P - Vital Signs and I&O's Vital Signs: Temperature 98.0 F Pulse Rate 78 Respiratory Rate 34 Blood Pressure [Right Arm] 125/53 Blood Pressure 100/56 O2 Sat by Pulse Oximetry 96 Intake and Output: Intake & Output 04/06/18 04/07/18 04/08/18 04/09/18 11:59 11:59 11:59 11:59 Intake Total 3539 / 3539 4702 / 4702 Output Total 1500 / 1500 850 / 850 Balance 2038 / 2038 3852 / 3852 - Physical Exam Oriented: Normal Eyes: Normal Ear: Normal Nose: Normal Throat: Normal Respiratory: Diminished Cardiovascular: Normal : Normal Auscultation: Bowel Sounds: Normal Tenderness: Normal Skin: Normal Musculoskeletal: Normal Psychiatric: Anxiety Speech Pattern: Clear, Appropriate - Laboratory and Diagnostics Result Diagrams: 04/08/18 05:14 04/08/18 05:14 Labs: 04/06/18 20:28 Blood Blood Culture - Preliminary 04/06/18 14:55 Blood Blood Culture - Preliminary 04/07/18 16:40 Sputum - Expectorated Sputum Sputum Culture - Preliminary 04/07/18 16:40 Sputum - Expectorated Sputum - Final Laboratory WBC 18.5 X10^3/uL (3.6-10.0) H D 04/08/18 05:14 RBC 4.63 X10^6/uL (3.5-5.4) 04/08/18 05:14 Hgb 11.7 g/dL (12.0-16.0) L 04/08/18 05:14 Hct 36.1 % (36.0-47.0) 04/08/18 05:14 MCV 77.9 fL (80.0-100.0) L 04/08/18 05:14 MCH 25.3 pg (27.0-34.0) L 04/08/18 05:14 MCHC 32.5 g/dL (33.0-35.0) L 04/08/18 05:14 RDW 14.9 % (11.6-16.5) 04/08/18 05:14 Plt Count 250 X10^3/uL (150.0-450.0) 04/08/18 05:14 Plt Count Comment Adequate (ADEQUATE) 04/08/18 05:14 MPV 9.1 fL (7.4-11.0) 04/08/18 05:14 Neut % (Auto) 79.5 % (42.0-75.0) H 04/08/18 05:14 Lymph % (Auto) 16.7 % (21.0-51.0) L 04/08/18 05:14 [place] % (Auto) 3.3 % (0.0-13.0) 04/08/18 05:14 Eos % (Auto) 0.2 % (0.9-2.9) L 04/08/18 05:14 Baso % (Auto) 0.3 % (0.2-1.0) 04/08/18 05:14 Neut # (Auto) 14.7 x10^3/uL (2.2-4.8) H 04/08/18 05:14 Lymph # (Auto) 3.1 X10^3/uL (1.3-2.9) H 04/08/18 05:14 [place] # (Auto) 0.6 x10^3/uL (0.3-0.8) 04/08/18 05:14 Eos # (Auto) 0.0 x10^3/uL (0.0-0.2) 04/08/18 05:14 Baso # (Auto) 0.0 X10^3/uL (0.0-0.1) 04/08/18 05:14 Absolute Nucleated RBC 0.0 /100WBC 04/08/18 05:14 Total Counted 100 04/07/18 05:38 Neutrophils % (Manual) 82 % (39-76) H 04/07/18 05:38 Band Neutrophils % 7 % (0-10) 04/07/18 05:38 Lymphocytes % (Manual) 8 % (13-43) L 04/07/18 05:38 Monocytes % (Manual) 3 % (4-9) L 04/07/18 05:38 Plt Morphology Comment Normal (NORMAL) 04/08/18 05:14 RBC Morphology Abnormal (NORMAL) A 04/08/18 05:14 Hypochromasia Slight A 04/08/18 05:14 Ovalocytes Slight A 04/08/18 05:14 [place] Cells Slight A 04/08/18 05:14 Sample Site Right brachial 04/07/18 15:48 ABG pH 7.410 (7.35-7.45) 04/07/18 15:48 ABG pCO2 37.0 mmHg (35.0-45.0) 04/07/18 15:48 ABG pO2 80.0 mmHg (80.0-100.0) 04/07/18 15:48 ABG HCO3 23.5 mmol/L (22-26) 04/07/18 15:48 ABG O2 Saturation 96.0 % (90-100) 04/07/18 15:48 ABG Base Excess -0.9 mmol/L (-2.0-2.0) 04/07/18 15:48 Kristopher Test Na 04/07/18 15:48 A-a Gradient 23.0 mmHg 04/07/18 15:48 FiO2 21 04/07/18 15:48 Blood Gas Comments Franko well aw 04/07/18 15:48 Sodium 138 mmol/L (136-145) 04/08/18 05:14 Corrected Sodium 141 mmol/L (136-145) 04/08/18 05:14 Potassium 4.0 mmol/L (3.5-5.1) 04/08/18 05:14 Chloride 106 mmol/L (98-107) 04/08/18 05:14 Carbon Dioxide 23.2 mmol/L (21-32) 04/08/18 05:14 BUN 18 mg/dL (7-18) 04/08/18 05:14 Creatinine 0.90 mg/dL (0.55-1.02) 04/08/18 05:14 Est GFR (MDRD) Af Amer > 60 (>60) 04/08/18 05:14 Est GFR (MDRD) Non-Af > 60 (>60) 04/08/18 05:14 Glucose 219 mg/dL (65-99) H 04/08/18 05:14 POC Glucose (mg/dL) 180 mg/dL (65-99) H 04/08/18 11:28 Lactic Acid 1.1 mmol/L (0.4-2.0) 04/07/18 13:59 Calcium 8.0 mg/dL (8.5-10.1) L 04/08/18 05:14 Corrected Calcium 8.7 mg/dL (8.5-10.1) 04/08/18 05:14 Magnesium 2.4 mg/dL (1.7-2.9) 04/06/18 17:52 Total Bilirubin 0.20 mg/dL (0.2-1.0) 04/08/18 05:14 AST 89 Units/L (15-37) H 04/08/18 05:14 ALT 79 Units/L (12-78) H 04/08/18 05:14 Alkaline Phosphatase 164 Units/L (46-116) H 04/08/18 05:14 Lactate Dehydrogenase 147 Units/L (81-234) 04/06/18 15:40 C-Reactive Protein 70.40 mg/L (0-3.0) H 04/06/18 15:40 Total Protein 6.6 g/dL (6.4-8.2) 04/08/18 05:14 Albumin 3.1 g/dL (3.4-5.0) L 04/08/18 05:14 Globulin 3.5 g/dL (2.5-4.5) 04/08/18 05:14 Albumin/Globulin Ratio 0.9 Ratio (1.1-2.1) L 04/08/18 05:14 Amylase 39 Units/L (25-115) 04/07/18 13:59 Lipase 80 Units/L (73-393) 04/07/18 13:59 Specimen Type Catherized urine 04/06/18 15:37 Urine Color Yellow (YELLOW) 04/06/18 15:37 Urine Appearance Hazy (CLEAR) 04/06/18 15:37 Urine pH 5.0 (5.0 - 8.0) 04/06/18 15:37 Ur Specific [place] 1.010 (1.000-1.030) 04/06/18 15:37 Urine Protein Negative (NEGATIVE) 04/06/18 15:37 Urine Glucose (UA) 4+ (NEGATIVE) 04/06/18 15:37 Urine Ketones 2+ (NEGATIVE) 04/06/18 15:37 Urine Occult Blood Negative (NEGATIVE) 04/06/18 15:37 Urine Nitrite Negative (NEGATIVE) 04/06/18 15:37 Urine Bilirubin Negative (NEGATIVE) 04/06/18 15:37 Urine Urobilinogen Normal (NORMAL) 04/06/18 15:37 Ur Leukocyte Esterase Negative (NEGATIVE) 04/06/18 15:37 Urine Opiates Screen Negative (NEG=<300) 04/06/18 15:37 Urine Methadone Screen Negative (NEG=<300) 04/06/18 15:37 Ur Barbiturates Screen Negative (NEG=<200) 04/06/18 15:37 Ur Phencyclidine Scrn Negative (NEG=<25) 04/06/18 15:37 Ur Amphetamines Screen Negative (NEG=<1000) 04/06/18 15:37 U Benzodiazepines Scrn Negative (NEG=<200) 04/06/18 15:37 Urine Cocaine Screen Negative (NEG=<300) 04/06/18 15:37 U Marijuana (THC) Screen Negative (NEG=<50) 04/06/18 15:37 Acetone, Semi-Quant Small (NEGATIVE) H 04/07/18 05:38 Influenza Type A (PCR) Negative (NEGATIVE) 04/07/18 16:40 Influenza Type B (PCR) Negative (NEGATIVE) 04/07/18 16:40 - Plan (1) Acute bronchitis Status: Acute Plan: CULTURES PENDING. CONTINUE JET NEBS, IV ATBX. SUPPLEMENTAL O2 PRN. BLOOD SUGAR CONTROL, AM LABS. I &OS (2) Altered mental status Status: Resolved Plan: RESOLVED, DUE TO HYPERGLYCEMIA, ACUTE ILLNESS. CONTINUOUS RESP THERAPY, SUPPLEMENTAL O2. CARDIAC AND BP MONITORING. STRICT I & OS, (3) DKA (diabetic ketoacidosis) Status: Acute (4) Leukocytosis Status: Acute (5) Uncontrolled daytime somnolence Status: Acute Plan: REFERRED FOR SLEEP STUDY ON OUTPT BASIS
[2018-04-08] MEDS: PERCOCET TAB 5/325 MG PO PRN (19:10)
[2018-04-08] MEDS: SNACK - Diabetic Appropriate PO SCH (19:55)
[2018-04-08] MEDS: MILK OF MAGNESIA PO SCH (20:01)
[2018-04-08] MEDS: COLACE CAP 100 MG PO SCH (20:02)
[2018-04-09] MEDS: NS 1000 ML 1,000 ML IV SCH (05:48)
[2018-04-09] MEDS: HumuLIN R SUBCUT PRN (05:49)
[2018-04-09 06:21] LABS: ALANINE AMINOTRANSFERASE 73 Units/L (12-78); ALBUMIN 2.6 g/dL (3.4-5.0); ALKALINE PHOSPHATASE 139 Units/L (46-116); ASPARTATE AMINO TRANSFERASE 63 Units/L (15-37); BLOOD UREA NITROGEN 10 mg/dL (7-18); CALCIUM 7.8 mg/dL (8.5-10.1); CARBON DIOXIDE 22.4 mmol/L (21-32); CHLORIDE 105 mmol/L (98-107); COR CA(FOR HYPOALB) 8.9 mg/dL (8.5-10.1); COR NA(FOR HYPERGLY) 142 mmol/L (136-145); CREATININE 0.78 mg/dL (0.55-1.02); SODIUM 136 mmol/L (136-145); TOTAL PROTEIN 5.7 g/dL (6.4-8.2); eGFR NON BLACK RACES > 60 (>60)
[2018-04-09 07:10] LABS: BASOPHILS # (AUTO) 0.1 X10^3/uL (0.0-0.1); BASOPHILS % (AUTO) 0.8 % (0.2-1.0); EOSINOPHILS # (AUTO) 0.1 x10^3/uL (0.0-0.2); EOSINOPHILS % (AUTO) 0.9 % (0.9-2.9); HEMATOCRIT 33.9 % (36.0-47.0); HEMOGLOBIN 10.9 g/dL (12.0-16.0); LYMPHOCYTES # (AUTO) 2.3 X10^3/uL (1.3-2.9); LYMPHOCYTES % (AUTO) 26.1 % (21.0-51.0); MEAN CORPUSCULAR HEMOGLOBIN 25.6 pg (27.0-34.0); MEAN CORPUSCULAR HGB CONC 32.3 g/dL (33.0-35.0); MEAN CORPUSCULAR VOLUME 79.2 fL (80.0-100.0); MEAN PLATELET VOLUME 9.5 fL (7.4-11.0); MONOCYTES # (AUTO) 0.5 x10^3/uL (0.3-0.8); MONOCYTES % (AUTO) 5.8 % (0.0-13.0); NEUTROPHILS # (AUTO) 5.8 x10^3/uL (2.2-4.8); NEUTROPHILS % (AUTO) 66.4 % (42.0-75.0); PLATELET COUNT 207 X10^3/uL (150.0-450.0); RED BLOOD COUNT 4.27 X10^6/uL (3.5-5.4); RED CELL DISTRIBUTION WIDTH 14.7 % (11.6-16.5); WHITE BLOOD COUNT 8.7 X10^3/uL (3.6-10.0)
[2018-04-09 07:47] LABS: PLATELET MORPHOLOGY COMMENT NORMAL (NORMAL)
[2018-04-09] MEDS: LEVAQUIN PREMIX IV 500 MG 500 MG/100 ML BAG IV SCH (08:31)
[2018-04-09] MEDS: ZITHROMAX INJ 500 MG VIAL 500 MG in NS 250 ML IV 250 ML IV SCH (08:31)
[2018-04-09] MEDS: PEPCID 20 MG IV PREMIX* 20 MG/50 ML BAG IV SCH (08:31)
[2018-04-09] MEDS: ZOFRAN INJ 4 MG VIAL IVP PRN (11:28)
[2018-04-09 12:15] VITALS: BP 120/58
== END 2018-04-09 13:20 | disposition home or self-care (01) | DRG 947 ==
LOC: ER 14:34 → ICU 18:14
PROVIDERS: ADMIT Internal Medicine; ATTEND Internal Medicine
DX: Z79.4 Long term (current) use of insulin; F41.8 Other specified anxiety disorders; E10.10 Type 1 diabetes mellitus with ketoacidosis without coma; D72.828 Other elevated white blood cell count; Z87.440 Personal history of urinary (tract) infections; E86.0 Dehydration; R41.82 Altered mental status, unspecified; Z78.1 Physical restraint status; B37.3 Candidiasis of vulva and vagina; I95.89 Other hypotension; J20.8 Acute bronchitis due to other specified organisms; M13.89 Other specified arthritis, multiple sites; R79.82 Elevated C-reactive protein (CRP)
CPT/HCPCS: 36415; 36600; 51702; 70450; 71010; 71045; 80053; 80307; 81003; 82009; 82150; 82803; 82947; 83605; 83615; 83690; 83735; 85025; 86140; 87040; 87070; 87205; 87502; 94640; 96365; 96367; 96374; 96375; 99238; 99282; 99285; A4222; S0028; G0434; J0456; J1815; J1956; J2405; J3490; J7030; J7050

== ENCOUNTER 2021-02-16 21:23 | Inpatient (IN) ==
[~2021-02-16 21:23] MED LIST: HumuLIN R ONE
[2021-02-16 21:31] VITALS: BMI 26.6
[2021-02-16] MEDS ORDERED: NS 1000 ML 1,000 ML IV ONE (22:09)
[2021-02-16] MEDS ORDERED: ZOFRAN INJ 4 MG VIAL IVP ONE (22:09)
[2021-02-16] MEDS ORDERED: NS 1000 ML 1,000 ML ONE (22:14)
[2021-02-16] MEDS ORDERED: ZOFRAN INJ 4 MG VIAL ONE (22:14)
[2021-02-16 22:46] LABS: ALANINE AMINOTRANSFERASE 13 Units/L (12-78); ALBUMIN 3.9 g/dL (3.4-5.0); ALKALINE PHOSPHATASE 123 Units/L (46-116); ASPARTATE AMINO TRANSFERASE 11 Units/L (15-37); BLOOD UREA NITROGEN 27 mg/dL (7-18); CALCIUM 9.3 mg/dL (8.5-10.1); CHLORIDE 90 mmol/L (98-107); COR NA(FOR HYPERGLY) 146 mmol/L (136-145); CREATININE 1.84 mg/dL (0.55-1.02); LIPASE 646 Units/L (73-393); SODIUM 131 mmol/L (136-145); TOTAL PROTEIN 7.9 g/dL (6.4-8.2); eGFR NON BLACK RACES 32 (>60)
[2021-02-16 22:48] LABS: CARBON DIOXIDE 9.7 mmol/L (21-32)
[2021-02-16] MEDS ORDERED: DILAUDID INJ IVP ONE (22:51)
[2021-02-16] MEDS ORDERED: HumuLIN R IV ONE (22:52)
[2021-02-16 22:54] LABS: BASOPHILS # (AUTO) 0.2 X10^3/uL (0.0-0.1); LYMPHOCYTES # (AUTO) 0.8 X10^3/uL (1.3-2.9); LYMPHOCYTES % (AUTO) 3.1 % (21.0-51.0); MONOCYTES # (AUTO) 1.6 x10^3/uL (0.3-0.8); RED CELL DISTRIBUTION WIDTH 18.4 % (11.6-16.5)
[2021-02-16] MEDS ORDERED: DILAUDID INJ ONE (22:55)
[2021-02-16] MEDS ORDERED: HumuLIN R ONE (22:55)
[2021-02-16 22:58] LABS: BASOPHILS % (AUTO) 0.6 % (0.2-1.0); HEMATOCRIT 37.2 % (36.0-47.0); MEAN CORPUSCULAR HEMOGLOBIN 21.1 pg (27.0-34.0); MEAN CORPUSCULAR HGB CONC 28.9 g/dL (33.0-35.0); MEAN CORPUSCULAR VOLUME 72.9 fL (80.0-100.0); MONOCYTES % (AUTO) 5.9 % (0.0-13.0); NEUTROPHILS # (AUTO) 24.4 x10^3/uL (2.2-4.8); NEUTROPHILS % (AUTO) 90.4 % (42.0-75.0); PLATELET COUNT 638 X10^3/uL (150.0-450.0); RED BLOOD COUNT 5.11 X10^6/uL (3.5-5.4)
[2021-02-16 23:01] LABS: HEMOGLOBIN 10.8 g/dL (12.0-16.0)
--- NOTE | 2021-02-16 23:04 | ED.ABDFE ---
HPI Time Seen Time Seen by Provider: 02/16/21 22:07 PCP Primary Care Physician: NFD Complaint Doctors Chief Complaint Comments: 40 y/o female brought in via EMS, ill x 9 days. Having diffuse abdominal pain, with frequent N/V. States unable to keep much fluid down, only small amounts of gatorade/water. No eating x several days. Is still moving her bowels and urinating. Pt believes it is her Crohn's disease acting up. + h/o IDDM, stopped her insulin pump because of being ill. Has taken some insulin past few days. Is weak, lightheaded. Having burning of lips, throat. denies fever. No cough, congestion. Chief Complaint:: PT IN ED VIA STRETCHER PER [facility] WITH C/O ABD PAIN AND N/V X 1 WEEK. PT STATES SHE HAS CROHN'S DISEASE AND IT IS ACTING UP. Self Treatment fo Chief Complaint: PT GIVEN 4MG ZOFRAN PER EMS COVID-19 Coronavirus risk:travel/contact w/high risk person: No Has patient experienced Coronavirus symptoms: No Reviewed Nurses Notes Review: Yes Source History Provided: Patient Mode of arrival Mode of Arrival: Stretcher Timing Onset of Chief Complaint: 02/08/21 Came on: Gradually Duration Since Onset: Since Onset Location Location: Diffuse Severity Severity: Severe Quality Quality: Cramping and Sharp Modifying factors Worsening Factors: Nothing and Food Improving Factors: Nothing Associated signs and symptoms Associated Signs and Symptoms: Nausea and Vomiting PMH PMH Past Medical History: Yes Past Medical History: Anxiety, Arthritis and Diabetes Past Medical History Comment: IBS CROHN'S Past Surgical History: Yes Surgical History: Abdominal Surgery, Cholecystectomy, A[employer]STRU[employer] Surgery and Tonsillectomy Past Surgical History Comment: TUBALIGATION NASAL SMALL BOWEL RESECTION Family History History of Family Medical Conditions: Yes Family Medical History: Diabetes Mellitus Social History Does patient currently use any type of tobacco product: No Have you used tobacco products in the last 12 months: No Type of Tobacco Use: None Does any household member use tobacco: No Alcohol Use: None Do you use any recreational Drugs:: No Lives With: Family Lives Where: Home Travel Risk Coronavirus risk:travel/contact w/high risk person: No Has patient experienced Coronavirus symptoms: No Infectious screening In the last 2 months have you had wt loss of >10#?: NO Have you had fever, night sweats or hemotysis?: No Have you traveled outside the country in the last 6 months?: No Isolation: Standard ROS Review of Systems Constitutional: Weakness; negative Chills and Fever Eyes: No Symptoms Reported ENTM: Throat Pain Respiratoy: No Symptoms Reported Cardiovascular: No Symptoms Reported Gastrointestinal/Abdominal: Abdominal Pain, Nausea and Vomiting; negative Constipation and Diarrhea Genitourinary: No Symptoms Reported Neurological: Weakness and Dizziness Musculoskeletal: No Symptoms Reported Integumentary: No Symptoms Reported Hematologic/Lymphatic: No Symptoms Reported Endocrine: No Symptoms Reported Psychiatric: No Symptoms Reported All Other Systems: Reviewed and Negative PE Vital Signs Vitals: Temperature 98.1 F Pulse Rate 119 Respiratory Rate 20 Blood Pressure [Right Arm] 125/53 Blood Pressure 116/57 O2 Sat by Pulse Oximetry 100 General Limitations: No Limitations General Appearance: Alert, Anxious and In Distress Eyes Eye exam: Normal Appearance ENT ENT Exam: Normal Exam Neck Neck Exam: Normal Inspection Chest Chest Inspection: Normal Inspection Respiratory Respiratory Exam: Normal Lung Sounds Bilat; negative Accessory Muscle Use and Respiratory Distress Respiratory Exam: Bilateral: Clear to Auscultation Cardiovascular Cardiovascular Exam: Regular Rate, Normal Rhythm and Normal Heart Sounds Abdominal Exam Abdominal Exam: Normal Inspection, Normal Bowel Sounds, Soft and Tenderness (all quadrants); negative Guarding and Rebound Back Back Exam: Normal Inspection Extremeties Extremities Exam: Normal Inspection and Full ROM; negative Tenderness and Edema Neurologic Neurological Exam: Alert, Oriented X3 and CN II-XII Intact; negative Motor Sensory Deficit Psychiatric Psychiatric Exam: Normal Affect Skin Skin Exam: Warm and Dry MDM Differential Diagnosis Differential Diagnosis- Considerations may include:: Bowel Obstruction, Diverticular disease, Gastroenteritis, Inflammatory BD and Other (comments) (DKA) COURSE Treatment Treatment: 40 y/o female ill x 9 days with worsening vomiting and abdominal pain. Pt believes it is her Crohn's disease. W/u initiated. BS > 700. Probable DKA. Pt given 2 L NS bolus. Was given 10 U regular insulin. Was given IV zofran, IV dilaudid. Labs c/w DKA - small amount of acetone in the blood, U/A with 3+ glucose, ketones. WBC 27,000. Chemistries glucose was 721, bicarb 9.7, lipase 646. Does have a h/o leukocytosis in the past, here for DKA in the past. 0140 - BS 553. Discussed with Dr Wiseman, will admit. Will start regular insulin drip. Additional dilaudid and zofran given. ROR Labs Reviewed Laboratory Results Reviewed?: Yes Result Diagrams: 02/16/21 22:15 02/17/21 01:00 Laboratory: WBC 27.0 X10^3/uL (3.6-10.0) H 02/16/21 22:15 RBC 5.11 X10^6/uL (3.5-5.4) 02/16/21 22:15 Hgb 10.8 g/dL (12.0-16.0) L 02/16/21 22:15 Hct 37.2 % (36.0-47.0) 02/16/21 22:15 MCV 72.9 fL (80.0-100.0) L 02/16/21 22:15 MCH 21.1 pg (27.0-34.0) L 02/16/21 22:15 MCHC 28.9 g/dL (33.0-35.0) L 02/16/21 22:15 RDW 18.4 % (11.6-16.5) H 02/16/21 22:15 Plt Count 638 X10^3/uL (150.0-450.0) H 02/16/21 22:15 Plt Count Comment Increased (ADEQUATE) A 02/16/21 22:15 MPV 9.0 fL (7.4-11.0) 02/16/21 22:15 Neut % (Auto) 90.4 % (42.0-75.0) H 02/16/21 22:15 Lymph % (Auto) 3.1 % (21.0-51.0) L 02/16/21 22:15 [place] % (Auto) 5.9 % (0.0-13.0) 02/16/21 22:15 Eos % (Auto) 0.0 % (0.9-2.9) L 02/16/21 22:15 Baso % (Auto) 0.6 % (0.2-1.0) 02/16/21 22:15 Neut # (Auto) 24.4 x10^3/uL (2.2-4.8) H 02/16/21 22:15 Lymph # (Auto) 0.8 X10^3/uL (1.3-2.9) L 02/16/21 22:15 [place] # (Auto) 1.6 x10^3/uL (0.3-0.8) H 02/16/21 22:15 Eos # (Auto) 0.0 x10^3/uL (0.0-0.2) 02/16/21 22:15 Baso # (Auto) 0.2 X10^3/uL (0.0-0.1) H 02/16/21 22:15 Absolute Nucleated RBC 0.0 /100WBC 02/16/21 22:15 Total Counted 100 02/16/21 22:15 Neutrophils % (Manual) 87 % (39-76) H 02/16/21 22:15 Lymphocytes % (Manual) 9 % (13-43) L 02/16/21 22:15 Monocytes % (Manual) 1 % (4-9) L 02/16/21 22:15 Metamyelocytes % 3 02/16/21 22:15 Plt Morphology Comment Normal (NORMAL) 02/16/21 22:15 RBC Morphology Normal (NORMAL) 02/16/21 22:15 Sodium 131 mmol/L (136-145) L 02/16/21 22:15 Corrected Sodium 146 mmol/L (136-145) H 02/16/21 22:15 Potassium 4.5 mmol/L (3.5-5.1) 02/16/21 22:15 Chloride 90 mmol/L (98-107) L 02/16/21 22:15 Carbon Dioxide 9.7 mmol/L (21-32) L* 02/16/21 22:15 BUN 27 mg/dL (7-18) H 02/16/21 22:15 Creatinine 1.84 mg/dL (0.55-1.02) H 02/16/21 22:15 Est GFR (MDRD) Af Amer 39 (>60) L 02/16/21 22:15 Est GFR (MDRD) Non-Af 32 (>60) L 02/16/21 22:15 Glucose 553 mg/dL (65-99) H* 02/17/21 01:00 Calcium 9.3 mg/dL (8.5-10.1) 02/16/21 22:15 Corrected Calcium TNP 02/16/21 22:15 Total Bilirubin 0.50 mg/dL (0.2-1.0) 02/16/21 22:15 AST 11 Units/L (15-37) L 02/16/21 22:15 ALT 13 Units/L (12-78) 02/16/21 22:15 Alkaline Phosphatase 123 Units/L (46-116) H 02/16/21 22:15 Total Protein 7.9 g/dL (6.4-8.2) 02/16/21 22:15 Albumin 3.9 g/dL (3.4-5.0) 02/16/21 22:15 Globulin 4.0 g/dL (2.5-4.5) 02/16/21 22:15 Albumin/Globulin Ratio 1.0 Ratio (1.1-2.1) L 02/16/21 22:15 Lipase 646 Units/L (73-393) H 02/16/21 22:15 Specimen Type Clean catch urine 02/16/21 23:54 Urine Color Straw (YELLOW) 02/16/21 23:54 Urine Appearance Slightly hazy (CLEAR) 02/16/21 23:54 Urine pH 5.0 (5.0 - 8.0) 02/16/21 23:54 Ur Specific [place] 1.015 (1.000-1.030) 02/16/21 23:54 Urine Protein 1+ (NEGATIVE) 02/16/21 23:54 Urine Glucose (UA) 4+ (NEGATIVE) 02/16/21 23:54 Urine Ketones 4+ (NEGATIVE) 02/16/21 23:54 Urine Occult Blood 2+ (NEGATIVE) 02/16/21 23:54 Urine Nitrite Negative (NEGATIVE) 02/16/21 23:54 Urine Bilirubin Negative (NEGATIVE) 02/16/21 23:54 Urine Urobilinogen Normal (NORMAL) 02/16/21 23:54 Ur Leukocyte Esterase Negative (NEGATIVE) 02/16/21 23:54 Urine RBC 0-2 /HPF (0-3) 02/16/21 23:54 Urine WBC None seen /HPF (0-5) 02/16/21 23:54 Ur Squamous Epith Cells Negative /HPF (NEGATIVE) 02/16/21 23:54 Urine Bacteria Negative /HPF (NEGATIVE) 02/16/21 23:54 Ur Culture Indicated? No/not indicated 02/16/21 23:54 Acetone, Semi-Quant Small (NEGATIVE) H 02/16/21 22:15 SARS CoV-2 RNA Rapid KYM Negative (NEGATIVE) 02/16/21 23:58 Opioid Opioid Risk Tool Age (Heath box if 16-45): Yes History of Preadolescent Sexual Abuse: No Total: 1 Total Score Risk Category: Low Risk Copyright: Leodan ARROYO predicting aberrant behaviors Diagnosis Discharge Problem: DKA (diabetic ketoacidosis) Qualifiers: Diabetes mellitus type: type 1 Vomiting Qualifiers: Nausea presence: with nausea
[2021-02-16 23:18] LABS: METAMYELOCYTES % 3; PLATELET MORPHOLOGY COMMENT NORMAL (NORMAL)
[2021-02-17 00:30] LABS: BILIRUBIN,URINE NEGATIVE (NEGATIVE); BLOOD/HEMOGLOBIN,URINE 2+ (NEGATIVE); GLUCOSE, URINE 4+ (NEGATIVE); KETONES,URINE 4+ (NEGATIVE); LEUKOCYTE ESTERASE ,URINE NEGATIVE (NEGATIVE); NITRITES,URINE NEGATIVE (NEGATIVE); PROTEIN,URINE 1+ (NEGATIVE); UROBILINOGEN,URINE NORMAL (NORMAL)
[2021-02-17 00:38] LABS: APPEARANCE,URINE SLIGHTLY HAZY (CLEAR); COLOR,URINE STRAW (YELLOW)
[2021-02-17 00:39] LABS: BACTERIA,URINE NEGATIVE /HPF (NEGATIVE); RBC,URINE 0-2 /HPF (0-3); SQUAMOUS EPITHELIAL CELL,UR NEGATIVE /HPF (NEGATIVE)
[2021-02-17] MEDS ORDERED: NS 1000 ML 1,000 ML IV ONE (01:05)
[2021-02-17] MEDS ORDERED: NS 1000 ML 1,000 ML ONE (01:08)
[2021-02-17] MEDS ORDERED: ZOFRAN INJ 4 MG VIAL IVP ONE (01:42)
[2021-02-17] MEDS ORDERED: DILAUDID INJ IVP ONE (01:42)
[2021-02-17] MEDS ORDERED: LEVSIN/MAALOX/LIDOC VISC PO ONE (01:42)
[2021-02-17] MEDS ORDERED: LEVSIN/MAALOX/LIDOC VISC ONE (01:45)
[2021-02-17] MEDS ORDERED: ZOFRAN INJ 4 MG VIAL ONE (01:47)
[2021-02-17] MEDS ORDERED: DILAUDID INJ ONE (01:47)
[2021-02-17] MEDS ORDERED: MYXREDLIN 100 UNIT/100 ML BAG 100 UNIT/100 ML PLAST..BAG IV ONE (02:13)
[2021-02-17] MEDS: MYXREDLIN 100 UNIT/100 ML BAG 100 UNIT/100 ML PLAST..BAG IV PRN ×2 (02:18→11:25)
[2021-02-17] MEDS: NS 1000 ML 1,000 ML IV SCH ×4 (03:30→21:45)
[2021-02-17 06:47] LABS: BASOPHILS # (AUTO) 0.1 X10^3/uL (0.0-0.1); BASOPHILS % (AUTO) 0.3 % (0.2-1.0); HEMATOCRIT 34.3 % (36.0-47.0); HEMOGLOBIN 10.5 g/dL (12.0-16.0); LYMPHOCYTES # (AUTO) 1.2 X10^3/uL (1.3-2.9); LYMPHOCYTES % (AUTO) 4.7 % (21.0-51.0); MEAN CORPUSCULAR HEMOGLOBIN 21.1 pg (27.0-34.0); MEAN CORPUSCULAR HGB CONC 30.6 g/dL (33.0-35.0); MEAN CORPUSCULAR VOLUME 68.7 fL (80.0-100.0); MEAN PLATELET VOLUME 7.9 fL (7.4-11.0); MONOCYTES # (AUTO) 2.9 x10^3/uL (0.3-0.8); MONOCYTES % (AUTO) 10.8 % (0.0-13.0); NEUTROPHILS # (AUTO) 22.3 x10^3/uL (2.2-4.8); NEUTROPHILS % (AUTO) 84.2 % (42.0-75.0); PLATELET COUNT 551 X10^3/uL (150.0-450.0); RED BLOOD COUNT 4.99 X10^6/uL (3.5-5.4); RED CELL DISTRIBUTION WIDTH 17.8 % (11.6-16.5); WHITE BLOOD COUNT 26.5 X10^3/uL (3.6-10.0)
[2021-02-17 07:17] LABS: ALANINE AMINOTRANSFERASE 13 Units/L (12-78); ALBUMIN 3.6 g/dL (3.4-5.0); ALKALINE PHOSPHATASE 115 Units/L (46-116); ASPARTATE AMINO TRANSFERASE 13 Units/L (15-37); BLOOD UREA NITROGEN 21 mg/dL (7-18); CARBON DIOXIDE 17.5 mmol/L (21-32); CHLORIDE 105 mmol/L (98-107); COR NA(FOR HYPERGLY) 141 mmol/L (136-145); CREATININE 1.32 mg/dL (0.55-1.02); SODIUM 139 mmol/L (136-145); TOTAL PROTEIN 7.5 g/dL (6.4-8.2); eGFR NON BLACK RACES 47 (>60)
[2021-02-17 07:29] LABS: ANISOCYTOSIS SLIGHT; BAND NEUTROPHILS % 1 % (0-10); HYPOCHROMASIA 1+; METAMYELOCYTES % 1; MICROCYTOSIS 1+; MYELOCYTES % 1; PLATELET MORPHOLOGY COMMENT NORMAL (NORMAL)
[2021-02-17] MEDS ORDERED: PROTONIX TAB 40 MG PO SCH (09:00)
[2021-02-17] MEDS: SINGULAIR TAB 10 MG PO SCH (10:41)
[2021-02-17] MEDS: PRAVACHOL PO SCH ×2 (10:41→11:18)
[2021-02-17] MEDS: LEVSIN/MAALOX/LIDOC VISC PO PRN (10:42)
[2021-02-17] MEDS: ZOFRAN INJ 4 MG VIAL IVP PRN ×2 (10:43→21:40)
[2021-02-17] MEDS: LANTUS SC SCH (11:07)
--- NOTE | 2021-02-17 14:52 | DR.H&P ---
H&P History & Physical for Day of: H&P Date: 02/17/21 Chief Complaint Chief Complaint: abdominal pain, N/V Allergies Allergies Allergy/AdvReac Type Severity Reaction Status Date / Time promethazine [From Phenergan] Allergy Unknown Verified 04/07/18 00:19 ceftriaxone [From Rocephin] Allergy Verified 04/06/18 15:20 hydrocodone Allergy Verified 02/16/21 21:32 [From Lorcet (hydrocodone)] Latex, Natural Rubber Allergy Verified 04/07/18 00:59 meperidine [From Demerol] Allergy Verified 04/06/18 15:20 morphine Allergy Verified 02/16/21 21:32 penicillin V Allergy Verified 04/06/18 15:20 tape Allergy Uncoded 04/07/18 00:59 History of Present Illness History of Present Illness: Ms House is a 40y/o female with a PMH of diabetes, Crohn's disease s/p bowel resection, GERD and HLD presented with worsening abdominal pain, nausea, vomiting and decreased oral intake. Patient has been sick for over a week and has been gradually worsening. She reports severe lower abdominal pain. She was diagnosed with Crohn's disease in 2009 and was seeing GI in [facility]. She had a small bowel resection and has never had any flare ups since then. She has never been on any medicine for Crohn's. Her last colonoscopy was in 2011. Patient uses insulin pump but since she has been sick she switched to insulin injections to help better control her FSBG.She has been using SSI. She has not been able to tolerate much PO intake except gatorade. She was having diarrhea with blood but that resolved last week. She had a BM day before yesterday with no blood. She reports subjective fever and chills. Denies URI Sx. ER work up - Glucose > 700, WBC 26 Hgb 10.5 BUN/Cr: 27/1.84 CO2: 9.7 Acetone small Lipase 646 - COVID-19 (-) Patient was started on IV fluid boluses and received regular insulin 10 units. She was also started on insulin drip. Her FSBG did come down to below 200. She also received Dilaudid for pain control. Plan: due to severe abdominal pain and elevated WBC, will get CTAP to assess further. Continue zofran. Will continue pain control with Dilaudid 1mg q4hrs prn. Continue protonix, add GI cocktail. Continue hydration with NS. Will switch to Lantus SQ, stop insulin drip. Continue SSI. Monitor AM labs/imaging. Time spent for clinical assessment, reviewing labs/imaging, physical exam, clinical assessment and documentation greater than 45 mins. Past Medical History Past Medical History: Anxiety, Arthritis and Diabetes Past Surgical History Surgical History: WALL TAPER Surgery Family History Family Medical History: Diabetes Mellitus, Coronary Artery Disease and Hypertension Social History Does patient currently use any type of tobacco product: No Have you used tobacco products in the last 12 months: No Type of Tobacco Use: None Does any household member use tobacco: No Alcohol Use: None Drug Use: None Medications Home Medications: promethazine [From Phenergan] Allergy (Unknown, Verified 04/07/18 00:19) ceftriaxone [From Rocephin] Allergy (Verified 04/06/18 15:20) hydrocodone [From Lorcet (hydrocodone)] Allergy (Verified 02/16/21 21:32) Latex, Natural Rubber Allergy (Verified 04/07/18 00:59) meperidine [From Demerol] Allergy (Verified 04/06/18 15:20) morphine Allergy (Verified 02/16/21 21:32) penicillin V Allergy (Verified 04/06/18 15:20) tape Allergy (Uncoded 04/07/18 00:59) CONTINUE taking the following medications insulin glargine [Lantus U-100 Insulin] 25 unit SUBCUT QHS 02/16/21 [History] Labs Result Diagrams: 02/17/21 06:30 02/17/21 06:30 Labs: Laboratory WBC 26.5 X10^3/uL (3.6-10.0) H 02/17/21 06:30 RBC 4.99 X10^6/uL (3.5-5.4) 02/17/21 06:30 Hgb 10.5 g/dL (12.0-16.0) L 02/17/21 06:30 Hct 34.3 % (36.0-47.0) L 02/17/21 06:30 MCV 68.7 fL (80.0-100.0) L 02/17/21 06:30 MCH 21.1 pg (27.0-34.0) L 02/17/21 06:30 MCHC 30.6 g/dL (33.0-35.0) L 02/17/21 06:30 RDW 17.8 % (11.6-16.5) H 02/17/21 06:30 Plt Count 551 X10^3/uL (150.0-450.0) H 02/17/21 06:30 Plt Count Comment Increased (ADEQUATE) A 02/17/21 06:30 MPV 7.9 fL (7.4-11.0) 02/17/21 06:30 Neut % (Auto) 84.2 % (42.0-75.0) H 02/17/21 06:30 Lymph % (Auto) 4.7 % (21.0-51.0) L 02/17/21 06:30 [place]ye % (Auto) 10.8 % (0.0-13.0) 02/17/21 06:30 Eos % (Auto) 0.0 % (0.9-2.9) L 02/17/21 06:30 Baso % (Auto) 0.3 % (0.2-1.0) 02/17/21 06:30 Neut # (Auto) 22.3 x10^3/uL (2.2-4.8) H 02/17/21 06:30 Lymph # (Auto) 1.2 X10^3/uL (1.3-2.9) L 02/17/21 06:30 [place]ye # (Auto) 2.9 x10^3/uL (0.3-0.8) H 02/17/21 06:30 Eos # (Auto) 0.0 x10^3/uL (0.0-0.2) 02/17/21 06:30 Baso # (Auto) 0.1 X10^3/uL (0.0-0.1) 02/17/21 06:30 Absolute Nucleated RBC 0.0 /100WBC 02/17/21 06:30 Total Counted 100 02/17/21 06:30 Neutrophils % (Manual) 84 % (39-76) H 02/17/21 06:30 Band Neutrophils % 1 % (0-10) 02/17/21 06:30 Lymphocytes % (Manual) 6 % (13-43) L 02/17/21 06:30 Monocytes % (Manual) 7 % (4-9) 02/17/21 06:30 Metamyelocytes % 1 02/17/21 06:30 Myelocytes % 1 02/17/21 06:30 Plt Morphology Comment Normal (NORMAL) 02/17/21 06:30 RBC Morphology Abnormal (NORMAL) A 02/17/21 06:30 Hypochromasia 1+ A 02/17/21 06:30 Anisocytosis Slight A 02/17/21 06:30 Microcytosis 1+ A 02/17/21 06:30 Sodium 139 mmol/L (136-145) 02/17/21 06:30 Corrected Sodium 141 mmol/L (136-145) 02/17/21 06:30 Potassium 4.4 mmol/L (3.5-5.1) 02/17/21 06:30 Chloride 105 mmol/L (98-107) 02/17/21 06:30 Carbon Dioxide 17.5 mmol/L (21-32) L 02/17/21 06:30 BUN 21 mg/dL (7-18) H 02/17/21 06:30 Creatinine 1.32 mg/dL (0.55-1.02) H 02/17/21 06:30 Est GFR (MDRD) Af Amer 57 (>60) L 02/17/21 06:30 Est GFR (MDRD) Non-Af 47 (>60) L 02/17/21 06:30 Glucose 165 mg/dL (65-99) H 02/17/21 06:30 POC Glucose (mg/dL) 155 mg/dL (65-99) H 02/17/21 11:13 Calcium 9.0 mg/dL (8.5-10.1) 02/17/21 06:30 Corrected Calcium TNP 02/17/21 06:30 Total Bilirubin 0.30 mg/dL (0.2-1.0) 02/17/21 06:30 AST 13 Units/L (15-37) L 02/17/21 06:30 ALT 13 Units/L (12-78) 02/17/21 06:30 Alkaline Phosphatase 115 Units/L (46-116) 02/17/21 06:30 Total Protein 7.5 g/dL (6.4-8.2) 02/17/21 06:30 Albumin 3.6 g/dL (3.4-5.0) 02/17/21 06:30 Globulin 3.9 g/dL (2.5-4.5) 02/17/21 06:30 Albumin/Globulin Ratio 0.9 Ratio (1.1-2.1) L 02/17/21 06:30 Lipase 646 Units/L (73-393) H 02/16/21 22:15 Specimen Type Clean catch urine 02/16/21 23:54 Urine Color Straw (YELLOW) 02/16/21 23:54 Urine Appearance Slightly hazy (CLEAR) 02/16/21 23:54 Urine pH 5.0 (5.0 - 8.0) 02/16/21 23:54 Ur Specific [place] 1.015 (1.000-1.030) 02/16/21 23:54 Urine Protein 1+ (NEGATIVE) 02/16/21 23:54 Urine Glucose (UA) 4+ (NEGATIVE) 02/16/21 23:54 Urine Ketones 4+ (NEGATIVE) 02/16/21 23:54 Urine Occult Blood 2+ (NEGATIVE) 02/16/21 23:54 Urine Nitrite Negative (NEGATIVE) 02/16/21 23:54 Urine Bilirubin Negative (NEGATIVE) 02/16/21 23:54 Urine Urobilinogen Normal (NORMAL) 02/16/21 23:54 Ur Leukocyte Esterase Negative (NEGATIVE) 02/16/21 23:54 Urine RBC 0-2 /HPF (0-3) 02/16/21 23:54 Urine WBC None seen /HPF (0-5) 02/16/21 23:54 Ur Squamous Epith Cells Negative /HPF (NEGATIVE) 02/16/21 23:54 Urine Bacteria Negative /HPF (NEGATIVE) 02/16/21 23:54 Ur Culture Indicated? No/not indicated 02/16/21 23:54 Acetone, Semi-Quant Small (NEGATIVE) H 02/16/21 22:15 SARS CoV-2 RNA Rapid KYM Negative (NEGATIVE) 02/16/21 23:58 Review of Systems Constitutional: Fever, Chills, Weakness and Malaise Eyes: No Symptoms Reported ENT: No Symptoms Reported Respiratory: No Symptoms Reported Cardiovascular: No Symptoms Reported Gastrointestinal: Nausea, Vomiting, Abdominal Pain and Diarrhea Genitourinary: No Symptoms Reported Musculoskeletal: No Symptoms Reported Skin: No Symptoms Reported Neurological: No Symptoms Reported Physical Exam Vital Signs: Temperature 97.9 F Pulse Rate [Brachial] 107 Pulse Rate 119 Respiratory Rate 18 Blood Pressure [Right Arm] 123/67 Blood Pressure 116/57 O2 Sat by Pulse Oximetry 100 Oriented: Normal Eyes: Normal Ear: Normal Nose: Normal Throat: Dry Respiratory: Clear Throughout Cardiovascular: Tachycardia Auscultation: Bowel Sounds: Normal Tenderness: LUQ, LLQ, Periumbilical, Suprapubic and Moderate; negative Rigidity Skin: Decreased Turgur Musculoskeletal: Normal Psychiatric: Anxiety Mood Description: Calm Affect: Normal Speech Pattern: Clear and Appropriate Assessment/Plan (1) DKA (diabetic ketoacidosis): Qualifiers: Diabetes mellitus complication detail: without coma Diabetes mellitus type: other specified (including SUNIL) Qualified Code(s): E13.10 - Other specified diabetes mellitus with ketoacidosis without coma Status: Acute (2) Abdominal pain: Qualifiers: Abdominal location: lower abdomen, unspecified Qualified Code(s): R10.30 - Lower abdominal pain, unspecified Status: Acute (3) Crohn disease: Qualifiers: Digestive disease complication type: with rectal bleeding Gastrointestinal tract location: unspecified location Qualified Code(s): K50.911 - Crohn's disease, unspecified, with rectal bleeding Status: Acute (4) Dehydration: Status: Acute (5) ANA CRISTINA (acute kidney injury): Status: Acute Review H&P Reviewed: Yes Patient was examined?: Yes
--- NOTE | 2021-02-17 15:13 | CT ---
EXAM: CT ABDOMEN AND PELVIS WITH INTRAVENOUS CONTRASTHISTORY: Abdominal pain. Vomiting. DKA. History of Crohn's, diabetes mellitus, bowel resection, tonsillitis, cholecystectomy.TECHNIQUE: Spiral axial CT images are obtained through the abdomen and pelvis with the administration of oral contrast and intravenous contrast. Additional coronal and sagittal reformatted images are reconstructed.DOSIMETRY: Total DLP 478 mGycm; CTDI 39.3 mGyCOMPARISON: None available.FINDINGS:GASTROINTESTINAL TRACT: Small collapsed hiatal hernia with mild thickening of the visualized distal esophagus which may represent postinflammatory change or reflux esophagitis in the appropriate clinical setting. There is no evidence for bowel herniation, bowel obstruction, colitis or diverticulitis. A normal-appearing appendix is seen.GENITOURINARY SYSTEM: The kidneys are unremarkable. There is no ureteral calculus or stigmata of obstructive uropathy. The urinary bladder is grossly unremarkable for a non-dedicated exam.REPRODUCTIVE SYSTEM: The uterus and adnexa appear grossly unremarkable for a CT scan. Consider follow-up dedicated imaging as clinically warranted.CT ABDOMEN: Status post cholecystectomy. The liver, spleen, pancreas, adrenal glands, aorta, and inferior vena cava are within normal limits for a CT scan. There is no intra-abdominal or retroperitoneal lymphadenopathy, free fluid, or free air seen. No abdominal herniation is noted.CT PELVIS: The visualized bony structures are within normal limits. No pelvic sidewall or inguinal lymphadenopathy is seen. No inguinal herniation is noted. No free fluid or free air is seen.LUNG BASES: The lung bases are clear.IMPRESSION:1. Small collapsed hiatal hernia with mild thickening of the visualized distal esophagus which may represent postinflammatory change or reflux esophagitis in the appropriate clinical setting.2. No evidence for pyelonephritis, renal stone disease or obstructive uropathy.3. No evidence for acute appendicitis, bowel herniation/obstruction, colitis or diverticulitis seen.4. No free fluid, free air, mass lesions, or lymphadenopathy seen.Electronically signed by: Anna Dickerson (Feb 17, 2021 15:11:04)
[2021-02-17] MEDS: PEPCID 20 MG IV PREMIX* 20 MG/50 ML BAG IV SCH (16:29)
[2021-02-17] MEDS: HumuLIN R SUBCUT PRN (16:37)
[2021-02-17] MEDS: DILAUDID INJ IVP PRN ×2 (17:07→21:45)
[2021-02-17] MEDS: SNACK - Diabetic Appropriate PO SCH ×2 (20:45→21:47)
[2021-02-17] MEDS: PROTONIX INJ 40 MG VIAL IVP SCH (21:40)
[2021-02-17] MEDS: NEURONTIN CAP 300 MG PO SCH (21:45)
[2021-02-18] MEDS ORDERED: D50W ABBOJECT SYR ONE (05:36)
[2021-02-18] MEDS ORDERED: D50W ABBOJECT SYR IV ONE (05:41)
[2021-02-18] MEDS: NS 1000 ML 1,000 ML IV SCH ×4 (05:59→21:00)
[2021-02-18] MEDS: LEVSIN/MAALOX/LIDOC VISC PO PRN (06:04)
[2021-02-18 06:24] LABS: BASOPHILS # (AUTO) 0.1 X10^3/uL (0.0-0.1); BASOPHILS % (AUTO) 0.7 % (0.2-1.0); EOSINOPHILS # (AUTO) 0.1 x10^3/uL (0.0-0.2); EOSINOPHILS % (AUTO) 1.1 % (0.9-2.9); HEMATOCRIT 31.4 % (36.0-47.0); HEMOGLOBIN 9.7 g/dL (12.0-16.0); LYMPHOCYTES # (AUTO) 1.9 X10^3/uL (1.3-2.9); LYMPHOCYTES % (AUTO) 16.5 % (21.0-51.0); MEAN CORPUSCULAR HEMOGLOBIN 21.1 pg (27.0-34.0); MEAN CORPUSCULAR VOLUME 68.1 fL (80.0-100.0); MEAN PLATELET VOLUME 8.1 fL (7.4-11.0); MONOCYTES # (AUTO) 1.3 x10^3/uL (0.3-0.8); NEUTROPHILS # (AUTO) 7.9 x10^3/uL (2.2-4.8); NEUTROPHILS % (AUTO) 69.7 % (42.0-75.0); PLATELET COUNT 416 X10^3/uL (150.0-450.0); RED CELL DISTRIBUTION WIDTH 17.7 % (11.6-16.5); WHITE BLOOD COUNT 11.3 X10^3/uL (3.6-10.0)
[2021-02-18 06:50] LABS: ALANINE AMINOTRANSFERASE 14 Units/L (12-78); ALBUMIN 3.1 g/dL (3.4-5.0); ALKALINE PHOSPHATASE 105 Units/L (46-116); ASPARTATE AMINO TRANSFERASE 15 Units/L (15-37); BLOOD UREA NITROGEN 10 mg/dL (7-18); CALCIUM 8.5 mg/dL (8.5-10.1); CARBON DIOXIDE 20.2 mmol/L (21-32); CHLORIDE 106 mmol/L (98-107); COR CA(FOR HYPOALB) 9.2 mg/dL (8.5-10.1); CREATININE 0.93 mg/dL (0.55-1.02); SODIUM 140 mmol/L (136-145); TOTAL PROTEIN 6.7 g/dL (6.4-8.2); eGFR NON BLACK RACES > 60 (>60)
[2021-02-18 07:18] LABS: ANISOCYTOSIS SLIGHT; BURR CELLS SLIGHT; HYPOCHROMASIA 1+; MICROCYTOSIS 1+; OVALOCYTES SLIGHT; PLATELET MORPHOLOGY COMMENT NORMAL (NORMAL)
[2021-02-18] MEDS: PEPCID 20 MG IV PREMIX* 20 MG/50 ML BAG IV SCH (08:53)
[2021-02-18] MEDS: LANTUS SC SCH (08:53)
[2021-02-18] MEDS: PROTONIX INJ 40 MG VIAL IVP SCH ×2 (08:53→21:24)
[2021-02-18] MEDS: SINGULAIR TAB 10 MG PO SCH (08:54)
[2021-02-18] MEDS: DILAUDID INJ IVP PRN ×4 (08:55→21:25)
[2021-02-18] MEDS ORDERED: LANTUS SC SCH (09:00)
[2021-02-18] MEDS: PRAVACHOL PO SCH (09:44)
[2021-02-18] MEDS ORDERED: CARAFATE ORAL SUSP PO ONE ×2 (11:03→15:57)
[2021-02-18] MEDS: CARAFATE ORAL SUSP PO SCH ×3 (11:14→21:21)
[2021-02-18] MEDS ORDERED: POTASSIUM CHL 40 MEQ/NS 0.45% 500 ML IV PRN (11:53)
[2021-02-18] MEDS ORDERED: POTASSIUM CHLORIDE LIQ 20 MEQ UDC PO PRN (11:53)
[2021-02-18] MEDS ORDERED: MICRO K EXTEN CAP 10 MEQ PO PRN (11:53)
[2021-02-18] MEDS ORDERED: POTASSIUM CHL 60 MEQ/NS 0.45% 500 ML IV PRN (11:53)
[2021-02-18] MEDS ORDERED: KLOR-CON PO PRN (11:53)
[2021-02-18] MEDS ORDERED: DIFLUCAN PO ONE (11:55)
[2021-02-18] MEDS ORDERED: DILAUDID INJ ONE (12:10)
[2021-02-18] MEDS: FOLIC ACID TAB 1 MG PO SCH (12:16)
[2021-02-18] MEDS: K-DUR TAB 20 MEQ PO PRN ×2 (12:56→17:49)
[2021-02-18] MEDS ORDERED: BENADRYL CAP/TAB 25 MG PO ONE ×2 (15:44→15:56)
[2021-02-18] MEDS: ZOFRAN INJ 4 MG VIAL IVP PRN (17:14)
[2021-02-18] MEDS: NEURONTIN CAP 300 MG PO SCH (21:00)
[2021-02-18] MEDS: SNACK - Diabetic Appropriate PO SCH (21:00)
[2021-02-18] MEDS: K-RIDER 10 MEQ/NS 100 ML 10 MEQ/100 ML BAG IV PRN ×2 (21:21→23:06)
[2021-02-19] MEDS: K-RIDER 10 MEQ/NS 100 ML 10 MEQ/100 ML BAG IV PRN ×2 (01:09→03:27)
[2021-02-19] MEDS ORDERED: D50W ABBOJECT SYR ONE (02:04)
[2021-02-19] MEDS: CARAFATE ORAL SUSP PO SCH ×4 (05:59→21:00)
[2021-02-19] MEDS: NS 1000 ML 1,000 ML IV SCH ×2 (05:59→07:30)
[2021-02-19 07:12] LABS: BASOPHILS % (AUTO) 0.4 % (0.2-1.0); EOSINOPHILS # (AUTO) 0.1 x10^3/uL (0.0-0.2); EOSINOPHILS % (AUTO) 1.3 % (0.9-2.9); HEMOGLOBIN 8.7 g/dL (12.0-16.0); LYMPHOCYTES # (AUTO) 1.6 X10^3/uL (1.3-2.9); LYMPHOCYTES % (AUTO) 23.9 % (21.0-51.0); MEAN CORPUSCULAR HEMOGLOBIN 21.7 pg (27.0-34.0); MEAN CORPUSCULAR HGB CONC 32.4 g/dL (33.0-35.0); MEAN PLATELET VOLUME 7.5 fL (7.4-11.0); MONOCYTES # (AUTO) 0.9 x10^3/uL (0.3-0.8); MONOCYTES % (AUTO) 12.9 % (0.0-13.0); NEUTROPHILS # (AUTO) 4.1 x10^3/uL (2.2-4.8); NEUTROPHILS % (AUTO) 61.5 % (42.0-75.0); PLATELET COUNT 297 X10^3/uL (150.0-450.0); RED BLOOD COUNT 4.03 X10^6/uL (3.5-5.4); RED CELL DISTRIBUTION WIDTH 17.6 % (11.6-16.5); WHITE BLOOD COUNT 6.7 X10^3/uL (3.6-10.0)
[2021-02-19 07:29] LABS: ALANINE AMINOTRANSFERASE 16 Units/L (12-78); ALBUMIN 2.3 g/dL (3.4-5.0); ALKALINE PHOSPHATASE 92 Units/L (46-116); ASPARTATE AMINO TRANSFERASE 24 Units/L (15-37); BLOOD UREA NITROGEN 2 mg/dL (7-18); CALCIUM 8.1 mg/dL (8.5-10.1); CARBON DIOXIDE 28.7 mmol/L (21-32); CHLORIDE 107 mmol/L (98-107); COR CA(FOR HYPOALB) 9.5 mg/dL (8.5-10.1); COR NA(FOR HYPERGLY) 141 mmol/L (136-145); CREATININE 0.59 mg/dL (0.55-1.02); SODIUM 141 mmol/L (136-145); TOTAL PROTEIN 5.3 g/dL (6.4-8.2); eGFR NON BLACK RACES > 60 (>60)
[2021-02-19 07:30] LABS: HYPOCHROMASIA 1+; PLATELET MORPHOLOGY COMMENT NORMAL (NORMAL)
[2021-02-19] MEDS ORDERED: NS 1000 ML 1,000 ML ONE (07:30)
[2021-02-19 07:31] LABS: ANISOCYTOSIS SLIGHT; BURR CELLS SLIGHT; MICROCYTOSIS 1+; OVALOCYTES SLIGHT
--- NOTE | 2021-02-19 07:57 | OR.IMMED ---
Immediate Post-Op Note - Immediate Post-Op Note Pre-Op Diagnosis: esophagitis, PUD. Post-Op Diagnosis: severe reflux esophagitis involving the lower third of the esophagus . no Crohn's disease . Procedure: EGD with Bx Specimens Removed: Bx from esophagus , antrum, DU Drains: NONE Complications: none Condition: Stable (on bland diet , hiatal hernia instructions ... F/U in two weeks)
[2021-02-19] MEDS ORDERED: NS + KCL 20 MEQ/L 1,000 ML IV ONE (08:54)
[2021-02-19] MEDS ORDERED: LANTUS SC SCH (09:00)
[2021-02-19] MEDS: ZOFRAN INJ 4 MG VIAL IVP PRN ×3 (09:00→22:00)
[2021-02-19] MEDS: DILAUDID INJ IVP PRN ×4 (09:00→21:30)
[2021-02-19] MEDS: PEPCID 20 MG IV PREMIX* 20 MG/50 ML BAG IV SCH (09:00)
[2021-02-19] MEDS: PROTONIX INJ 40 MG VIAL IVP SCH ×2 (09:00→21:00)
[2021-02-19] MEDS: SINGULAIR TAB 10 MG PO SCH (09:00)
[2021-02-19] MEDS: NS + KCL 20 MEQ/L 1,000 ML IV SCH ×3 (09:00→22:00)
--- NOTE | 2021-02-19 09:17 | PCM.PROG ---
Progress Note Progress Note for Day of Date of Exam: 02/18/21 Subjective Subjective: Patient seen at bedside, feels slightly better. Her FSBG did drop into the 50s last night and she was given D50. She still has nausea and abdominal pain but not as severe. She states it mondragon whenever she eats or drinks anything. She has been able to drink some liquids. She did have an episo de of vomiting, no diarrhea. Labs: WBC: 11.3 Hgb: 9.7 K: 3.4 Glucose 61 CTAP: esophagitis noted, no signs if infection or inflammation in the colon Plan: consult Dr. Lynch for possible EGD. Continue IV protonix and pepcid. Continue GI cocktail, add carafate prior to meals. Replace K as per protocol. Continue levemir 20 units and SSI, adjust SSI scale as per pharmacy. Will advance diet to full liquids as tolerated. Continue zofran and pain control. Continue hydration. Anemia panel ordered. Monitor AM labs/imaging. Past Medical Family Social History Past Med/Fam/Surg Hx: No changes since H&P Allergies: Allergies promethazine [From Phenergan] Allergy (Unknown, Verified 04/07/18 00:19) ceftriaxone [From Rocephin] Allergy (Verified 04/06/18 15:20) hydrocodone [From Lorcet (hydrocodone)] Allergy (Verified 02/16/21 21:32) Latex, Natural Rubber Allergy (Verified 04/07/18 00:59) meperidine [From Demerol] Allergy (Verified 04/06/18 15:20) morphine Allergy (Verified 02/16/21 21:32) penicillin V Allergy (Verified 04/06/18 15:20) tape Allergy (Uncoded 04/07/18 00:59) Review of Systems ROS: No change since H&P Vital Signs and I&O's Vital Signs: Temperature 98.4 F Pulse Rate [Brachial] 82 Pulse Rate 119 Respiratory Rate 20 Blood Pressure [Right Arm] 99/54 Blood Pressure 116/57 O2 Sat by Pulse Oximetry 98 Intake and Output: Intake & Output 02/16/21 02/17/21 02/18/21 02/19/21 23:59 23:59 23:59 23:59 Intake Total 2407 / 2407 3677 / 3677 1050 / 1050 Output Total 1 / 1 Balance 2406 / 2406 3677 / 3677 1050 / 1050 Physical Exam Oriented: Normal Eyes: Normal Ear: Normal Nose: Normal Throat: Normal Respiratory: Normal Cardiovascular: Tachycardia Auscultation: Bowel Sounds: Normal Tenderness: RLQ, LLQ, Periumbilical, Suprapubic and Mild; negative Guarding and Rigidity Skin: Decreased Turgur Musculoskeletal: Normal Psychiatric: Anxiety Mood Description: Calm Affect: Normal Speech Pattern: Clear and Appropriate Laboratory and Diagnostics Result Diagrams: 02/19/21 07:06 02/19/21 07:06 Labs: Laboratory WBC 6.7 X10^3/uL (3.6-10.0) 02/19/21 07:06 RBC 4.03 X10^6/uL (3.5-5.4) 02/19/21 07:06 Hgb 8.7 g/dL (12.0-16.0) L 02/19/21 07:06 Hct 27.0 % (36.0-47.0) L 02/19/21 07:06 MCV 67.0 fL (80.0-100.0) L 02/19/21 07:06 MCH 21.7 pg (27.0-34.0) L 02/19/21 07:06 MCHC 32.4 g/dL (33.0-35.0) L 02/19/21 07:06 RDW 17.6 % (11.6-16.5) H 02/19/21 07:06 Plt Count 297 X10^3/uL (150.0-450.0) 02/19/21 07:06 Plt Count Comment Adequate (ADEQUATE) 02/19/21 07:06 MPV 7.5 fL (7.4-11.0) 02/19/21 07:06 Neut % (Auto) 61.5 % (42.0-75.0) 02/19/21 07:06 Lymph % (Auto) 23.9 % (21.0-51.0) 02/19/21 07:06 [place] % (Auto) 12.9 % (0.0-13.0) 02/19/21 07:06 Eos % (Auto) 1.3 % (0.9-2.9) 02/19/21 07:06 Baso % (Auto) 0.4 % (0.2-1.0) 02/19/21 07:06 Neut # (Auto) 4.1 x10^3/uL (2.2-4.8) 02/19/21 07:06 Lymph # (Auto) 1.6 X10^3/uL (1.3-2.9) 02/19/21 07:06 [place] # (Auto) 0.9 x10^3/uL (0.3-0.8) H 02/19/21 07:06 Eos # (Auto) 0.1 x10^3/uL (0.0-0.2) 02/19/21 07:06 Baso # (Auto) 0.0 X10^3/uL (0.0-0.1) 02/19/21 07:06 Absolute Nucleated RBC 0.1 /100WBC 02/19/21 07:06 Total Counted 100 02/17/21 06:30 Neutrophils % (Manual) 84 % (39-76) H 02/17/21 06:30 Band Neutrophils % 1 % (0-10) 02/17/21 06:30 Lymphocytes % (Manual) 6 % (13-43) L 02/17/21 06:30 Monocytes % (Manual) 7 % (4-9) 02/17/21 06:30 Metamyelocytes % 1 02/17/21 06:30 Myelocytes % 1 02/17/21 06:30 Plt Morphology Comment Normal (NORMAL) 02/19/21 07:06 RBC Morphology Abnormal (NORMAL) A 02/19/21 07:06 Hypochromasia 1+ A 02/19/21 07:06 Anisocytosis Slight A 02/19/21 07:06 Microcytosis 1+ A 02/19/21 07:06 Ovalocytes Slight A 02/19/21 07:06 Adriana Cells Slight A 02/19/21 07:06 ESR 21 MM/HOUR (0-20) H 02/19/21 07:06 Sodium 141 mmol/L (136-145) 02/19/21 07:06 Corrected Sodium 141 mmol/L (136-145) 02/19/21 07:06 Potassium 3.0 mmol/L (3.5-5.1) L* 02/19/21 07:06 Chloride 107 mmol/L (98-107) 02/19/21 07:06 Carbon Dioxide 28.7 mmol/L (21-32) 02/19/21 07:06 BUN 2 mg/dL (7-18) L 02/19/21 07:06 Creatinine 0.59 mg/dL (0.55-1.02) 02/19/21 07:06 Est GFR (MDRD) Af Amer > 60 (>60) 02/19/21 07:06 Est GFR (MDRD) Non-Af > 60 (>60) 02/19/21 07:06 Glucose 115 mg/dL (65-99) H 02/19/21 07:06 POC Glucose (mg/dL) 75 mg/dL (65-99) 02/19/21 05:11 Calcium 8.1 mg/dL (8.5-10.1) L 02/19/21 07:06 Corrected Calcium 9.5 mg/dL (8.5-10.1) 02/19/21 07:06 Magnesium 1.8 mg/dL (1.7-2.9) 02/19/21 07:06 Iron 20 ug/dL (50-175) L 02/18/21 05:45 Transferrin 262 mg/dL (202-364) 02/18/21 05:45 Ferritin 15 ng/mL (8-252) 02/18/21 05:45 Total Bilirubin 0.20 mg/dL (0.2-1.0) 02/19/21 07:06 AST 24 Units/L (15-37) 02/19/21 07:06 ALT 16 Units/L (12-78) 02/19/21 07:06 Alkaline Phosphatase 92 Units/L (46-116) 02/19/21 07:06 C-Reactive Protein 17.10 mg/L (0-3.0) H 02/17/21 15:09 Total Protein 5.3 g/dL (6.4-8.2) L 02/19/21 07:06 Albumin 2.3 g/dL (3.4-5.0) L 02/19/21 07:06 Globulin 3.0 g/dL (2.5-4.5) 02/19/21 07:06 Albumin/Globulin Ratio 0.8 Ratio (1.1-2.1) L 02/19/21 07:06 Lipase 646 Units/L (73-393) H 02/16/21 22:15 Vitamin B12 1126 pg/mL (193-986) H 02/18/21 05:45 Folate 6.6 ng/mL (>8.6) L 02/18/21 05:45 Specimen Type Clean catch urine 02/16/21 23:54 Urine Color Straw (YELLOW) 02/16/21 23:54 Urine Appearance Slightly hazy (CLEAR) 02/16/21 23:54 Urine pH 5.0 (5.0 - 8.0) 02/16/21 23:54 Ur Specific [place] 1.015 (1.000-1.030) 02/16/21 23:54 Urine Protein 1+ (NEGATIVE) 02/16/21 23:54 Urine Glucose (UA) 4+ (NEGATIVE) 02/16/21 23:54 Urine Ketones 4+ (NEGATIVE) 02/16/21 23:54 Urine Occult Blood 2+ (NEGATIVE) 02/16/21 23:54 Urine Nitrite Negative (NEGATIVE) 02/16/21 23:54 Urine Bilirubin Negative (NEGATIVE) 02/16/21 23:54 Urine Urobilinogen Normal (NORMAL) 02/16/21 23:54 Ur Leukocyte Esterase Negative (NEGATIVE) 02/16/21 23:54 Urine RBC 0-2 /HPF (0-3) 02/16/21 23:54 Urine WBC None seen /HPF (0-5) 02/16/21 23:54 Ur Squamous Epith Cells Negative /HPF (NEGATIVE) 02/16/21 23:54 Urine Bacteria Negative /HPF (NEGATIVE) 02/16/21 23:54 Ur Culture Indicated? No/not indicated 02/16/21 23:54 Acetone, Semi-Quant Small (NEGATIVE) H 02/16/21 22:15 SARS CoV-2 RNA Rapid KYM Negative (NEGATIVE) 02/16/21 23:58 Tissue Pathology To follow 02/19/21 07:41 Plan (1) DKA (diabetic ketoacidosis): Status: Acute Qualifiers: Diabetes mellitus complication detail: without coma Diabetes mellitus type: other specified (including SUNIL) Qualified Code(s): E13.10 - Other specified diabetes mellitus with ketoacidosis without coma (2) Abdominal pain: Status: Acute Qualifiers: Abdominal location: lower abdomen, unspecified Qualified Code(s): R10.30 - Lower abdominal pain, unspecified (3) Crohn disease: Status: Acute Qualifiers: Digestive disease complication type: with rectal bleeding Gastrointestinal tract location: unspecified location Qualified Code(s): K50.911 - Crohn's disease, unspecified, with rectal bleeding (4) Dehydration: Status: Acute (5) ANA CRISTINA (acute kidney injury): Status: Acute (6) Esophagitis: Status: Acute
[2021-02-19] MEDS: FOLIC ACID TAB 1 MG PO SCH (09:28)
[2021-02-19] MEDS: PRAVACHOL PO SCH (10:07)
[2021-02-19] MEDS: MIRALAX POWDER (1 DOSE 17 G) PO SCH (10:07)
[2021-02-19] MEDS: LANTUS SC SCH (10:16)
--- NOTE | 2021-02-19 10:50 | PCM.PROG ---
Progress Note Progress Note for Day of Date of Exam: 02/19/21 Subjective Subjective: Patient seen at bedside, no acute events overnight. She had EGD this morning which showed severe esophagitis in the lower 1/3 esophagus. She reports feeling slightly better. She still has some abdominal pain, no BM yesterday. Labs: WBC: 6.7 Hgb: 8.7 K: 3.0 Glucose 61 low iron and folate, normal B12 CTAP: esophagitis noted, no signs if infection or inflammation in the colon EGD (02/19/21): Severe distal esophagitis Plan: Follow surgery recommendations, start bland diet. Colonoscopy tomorrow as per Dr Lynch due to anemia. Start iron supplements and folic acid. Continue IV protonix and pepcid. Continue GI cocktail, zofran and pain control. Will change IVF to NS + KCl. Add Miralax. Decrease lantus to 15 units, continue SSI. Monitor AM labs/imaging. Past Medical Family Social History Past Med/Fam/Surg Hx: No changes since H&P Allergies: Allergies promethazine [From Phenergan] Allergy (Unknown, Verified 04/07/18 00:19) ceftriaxone [From Rocephin] Allergy (Verified 04/06/18 15:20) hydrocodone [From Lorcet (hydrocodone)] Allergy (Verified 02/16/21 21:32) Latex, Natural Rubber Allergy (Verified 04/07/18 00:59) meperidine [From Demerol] Allergy (Verified 04/06/18 15:20) morphine Allergy (Verified 02/16/21 21:32) penicillin V Allergy (Verified 04/06/18 15:20) tape Allergy (Uncoded 04/07/18 00:59) Review of Systems ROS: No change since H&P Vital Signs and I&O's Vital Signs: Temperature 98.8 F Pulse Rate [Brachial] 97 Pulse Rate 119 Respiratory Rate 18 Blood Pressure [Right Arm] 130/68 Blood Pressure 116/57 O2 Sat by Pulse Oximetry 100 Intake and Output: Intake & Output 02/16/21 02/17/21 02/18/21 02/19/21 23:59 23:59 23:59 23:59 Intake Total 2407 / 2407 3677 / 3677 1050 / 1050 Output Total Balance 2406 / 2406 3677 / 3677 1050 / 1050 Physical Exam Oriented: Normal Eyes: Normal Ear: Normal Nose: Normal Throat: Normal Respiratory: Normal Cardiovascular: Normal Auscultation: Bowel Sounds: Normal Tenderness: RLQ, LLQ and Mild; negative Guarding and Rigidity Skin: Normal Musculoskeletal: Normal Psychiatric: Anxiety Mood Description: Calm Affect: Normal Speech Pattern: Clear and Appropriate Laboratory and Diagnostics Result Diagrams: 02/19/21 07:06 02/19/21 07:06 Labs: Laboratory WBC 6.7 X10^3/uL (3.6-10.0) 02/19/21 07:06 RBC 4.03 X10^6/uL (3.5-5.4) 02/19/21 07:06 Hgb 8.7 g/dL (12.0-16.0) L 02/19/21 07:06 Hct 27.0 % (36.0-47.0) L 02/19/21 07:06 MCV 67.0 fL (80.0-100.0) L 02/19/21 07:06 MCH 21.7 pg (27.0-34.0) L 02/19/21 07:06 MCHC 32.4 g/dL (33.0-35.0) L 02/19/21 07:06 RDW 17.6 % (11.6-16.5) H 02/19/21 07:06 Plt Count 297 X10^3/uL (150.0-450.0) 02/19/21 07:06 Plt Count Comment Adequate (ADEQUATE) 02/19/21 07:06 MPV 7.5 fL (7.4-11.0) 02/19/21 07:06 Neut % (Auto) 61.5 % (42.0-75.0) 02/19/21 07:06 Lymph % (Auto) 23.9 % (21.0-51.0) 02/19/21 07:06 [place] % (Auto) 12.9 % (0.0-13.0) 02/19/21 07:06 Eos % (Auto) 1.3 % (0.9-2.9) 02/19/21 07:06 Baso % (Auto) 0.4 % (0.2-1.0) 02/19/21 07:06 Neut # (Auto) 4.1 x10^3/uL (2.2-4.8) 02/19/21 07:06 Lymph # (Auto) 1.6 X10^3/uL (1.3-2.9) 02/19/21 07:06 [place] # (Auto) 0.9 x10^3/uL (0.3-0.8) H 02/19/21 07:06 Eos # (Auto) 0.1 x10^3/uL (0.0-0.2) 02/19/21 07:06 Baso # (Auto) 0.0 X10^3/uL (0.0-0.1) 02/19/21 07:06 Absolute Nucleated RBC 0.1 /100WBC 02/19/21 07:06 Total Counted 100 02/17/21 06:30 Neutrophils % (Manual) 84 % (39-76) H 02/17/21 06:30 Band Neutrophils % 1 % (0-10) 02/17/21 06:30 Lymphocytes % (Manual) 6 % (13-43) L 02/17/21 06:30 Monocytes % (Manual) 7 % (4-9) 02/17/21 06:30 Metamyelocytes % 1 02/17/21 06:30 Myelocytes % 1 02/17/21 06:30 Plt Morphology Comment Normal (NORMAL) 02/19/21 07:06 RBC Morphology Abnormal (NORMAL) A 02/19/21 07:06 Hypochromasia 1+ A 02/19/21 07:06 Anisocytosis Slight A 02/19/21 07:06 Microcytosis 1+ A 02/19/21 07:06 Ovalocytes Slight A 02/19/21 07:06 Bow Cells Slight A 02/19/21 07:06 ESR 21 MM/HOUR (0-20) H 02/19/21 07:06 Sodium 141 mmol/L (136-145) 02/19/21 07:06 Corrected Sodium 141 mmol/L (136-145) 02/19/21 07:06 Potassium 3.0 mmol/L (3.5-5.1) L* 02/19/21 07:06 Chloride 107 mmol/L (98-107) 02/19/21 07:06 Carbon Dioxide 28.7 mmol/L (21-32) 02/19/21 07:06 BUN 2 mg/dL (7-18) L 02/19/21 07:06 Creatinine 0.59 mg/dL (0.55-1.02) 02/19/21 07:06 Est GFR (MDRD) Af Amer > 60 (>60) 02/19/21 07:06 Est GFR (MDRD) Non-Af > 60 (>60) 02/19/21 07:06 Glucose 115 mg/dL (65-99) H 02/19/21 07:06 POC Glucose (mg/dL) 139 mg/dL (65-99) H 02/19/21 10:05 Calcium 8.1 mg/dL (8.5-10.1) L 02/19/21 07:06 Corrected Calcium 9.5 mg/dL (8.5-10.1) 02/19/21 07:06 Magnesium 1.8 mg/dL (1.7-2.9) 02/19/21 07:06 Iron 20 ug/dL (50-175) L 02/18/21 05:45 Transferrin 262 mg/dL (202-364) 02/18/21 05:45 Ferritin 15 ng/mL (8-252) 02/18/21 05:45 Total Bilirubin 0.20 mg/dL (0.2-1.0) 02/19/21 07:06 AST 24 Units/L (15-37) 02/19/21 07:06 ALT 16 Units/L (12-78) 02/19/21 07:06 Alkaline Phosphatase 92 Units/L (46-116) 02/19/21 07:06 C-Reactive Protein 17.10 mg/L (0-3.0) H 02/17/21 15:09 Total Protein 5.3 g/dL (6.4-8.2) L 02/19/21 07:06 Albumin 2.3 g/dL (3.4-5.0) L 02/19/21 07:06 Globulin 3.0 g/dL (2.5-4.5) 02/19/21 07:06 Albumin/Globulin Ratio 0.8 Ratio (1.1-2.1) L 02/19/21 07:06 Lipase 646 Units/L (73-393) H 02/16/21 22:15 Vitamin B12 1126 pg/mL (193-986) H 02/18/21 05:45 Folate 6.6 ng/mL (>8.6) L 02/18/21 05:45 Specimen Type Clean catch urine 02/16/21 23:54 Urine Color Straw (YELLOW) 02/16/21 23:54 Urine Appearance Slightly hazy (CLEAR) 02/16/21 23:54 Urine pH 5.0 (5.0 - 8.0) 02/16/21 23:54 Ur Specific [place] 1.015 (1.000-1.030) 02/16/21 23:54 Urine Protein 1+ (NEGATIVE) 02/16/21 23:54 Urine Glucose (UA) 4+ (NEGATIVE) 02/16/21 23:54 Urine Ketones 4+ (NEGATIVE) 02/16/21 23:54 Urine Occult Blood 2+ (NEGATIVE) 02/16/21 23:54 Urine Nitrite Negative (NEGATIVE) 02/16/21 23:54 Urine Bilirubin Negative (NEGATIVE) 02/16/21 23:54 Urine Urobilinogen Normal (NORMAL) 02/16/21 23:54 Ur Leukocyte Esterase Negative (NEGATIVE) 02/16/21 23:54 Urine RBC 0-2 /HPF (0-3) 02/16/21 23:54 Urine WBC None seen /HPF (0-5) 02/16/21 23:54 Ur Squamous Epith Cells Negative /HPF (NEGATIVE) 02/16/21 23:54 Urine Bacteria Negative /HPF (NEGATIVE) 02/16/21 23:54 Ur Culture Indicated? No/not indicated 02/16/21 23:54 Acetone, Semi-Quant Small (NEGATIVE) H 02/16/21 22:15 SARS CoV-2 RNA Rapid KYM Negative (NEGATIVE) 02/16/21 23:58 Tissue Pathology To follow 02/19/21 07:41 Plan (1) Esophagitis: Status: Acute (2) DKA (diabetic ketoacidosis): Status: Acute Qualifiers: Diabetes mellitus type: other specified (including SUNIL) Diabetes mellitus complication detail: without coma Qualified Code(s): E13.10 - Other specified diabetes mellitus with ketoacidosis without coma (3) Abdominal pain: Status: Acute Qualifiers: Abdominal location: lower abdomen, unspecified Qualified Code(s): R10.30 - Lower abdominal pain, unspecified (4) Crohn disease: Status: Acute Qualifiers: Gastrointestinal tract location: unspecified location Digestive disease complication type: with rectal bleeding Qualified Code(s): K50.911 - Crohn's disease, unspecified, with rectal bleeding (5) Dehydration: Status: Acute (6) ANA CRISTINA (acute kidney injury): Status: Acute (7) Hypokalemia: Status: Acute (8) Anemia: Status: Acute Qualifiers: Anemia type: iron deficiency Iron deficiency anemia type: unspecified iron deficiency Qualified Code(s): D50.9 - Iron deficiency anemia, unspecified (9) LUISA (iron deficiency anemia): Status: Acute Qualifiers: Iron deficiency anemia type: unspecified iron deficiency Qualified Code(s): D50.9 - Iron deficiency anemia, unspecified (10) Folate deficiency: Status: Acute
[2021-02-19] MEDS: HumuLIN R SUBCUT PRN ×2 (11:29→17:13)
[2021-02-19] MEDS: LEVSIN/MAALOX/LIDOC VISC PO PRN (13:53)
[2021-02-19] MEDS: FERROUS GLUCONATE PO SCH (16:19)
[2021-02-19] MEDS ORDERED: CITROMA PO ONE (16:49)
[2021-02-19] MEDS ORDERED: DULCOLAX TAB EC 5 MG PO ONE (16:49)
[2021-02-19] MEDS ORDERED: NULYTELY or GO-LYTELY PO SCH (17:00)
[2021-02-19] MEDS ORDERED: DEMEROL INJ ONE (19:37)
[2021-02-19] MEDS: SNACK - Diabetic Appropriate PO SCH ×2 (20:00)
[2021-02-19] MEDS: NEURONTIN CAP 300 MG PO SCH (21:00)
[2021-02-20] MEDS: ZOFRAN INJ 4 MG VIAL IVP PRN ×2 (04:00→12:57)
[2021-02-20] MEDS: DILAUDID INJ IVP PRN ×2 (04:45→12:57)
[2021-02-20 06:02] LABS: BASOPHILS % (AUTO) 0.7 % (0.2-1.0); EOSINOPHILS # (AUTO) 0.1 x10^3/uL (0.0-0.2); EOSINOPHILS % (AUTO) 2.6 % (0.9-2.9); HEMATOCRIT 26.7 % (36.0-47.0); HEMOGLOBIN 8.6 g/dL (12.0-16.0); LYMPHOCYTES # (AUTO) 1.6 X10^3/uL (1.3-2.9); LYMPHOCYTES % (AUTO) 28.1 % (21.0-51.0); MEAN CORPUSCULAR HEMOGLOBIN 21.7 pg (27.0-34.0); MEAN CORPUSCULAR VOLUME 67.7 fL (80.0-100.0); MEAN PLATELET VOLUME 8.1 fL (7.4-11.0); MONOCYTES # (AUTO) 0.5 x10^3/uL (0.3-0.8); MONOCYTES % (AUTO) 8.8 % (0.0-13.0); NEUTROPHILS # (AUTO) 3.3 x10^3/uL (2.2-4.8); NEUTROPHILS % (AUTO) 59.8 % (42.0-75.0); PLATELET COUNT 276 X10^3/uL (150.0-450.0); RED BLOOD COUNT 3.95 X10^6/uL (3.5-5.4); RED CELL DISTRIBUTION WIDTH 17.5 % (11.6-16.5); WHITE BLOOD COUNT 5.6 X10^3/uL (3.6-10.0)
[2021-02-20 06:04] LABS: ALANINE AMINOTRANSFERASE 218 Units/L (12-78); ALBUMIN 2.2 g/dL (3.4-5.0); ALKALINE PHOSPHATASE 175 Units/L (46-116); ASPARTATE AMINO TRANSFERASE 518 Units/L (15-37); BLOOD UREA NITROGEN 1 mg/dL (7-18); CALCIUM 7.9 mg/dL (8.5-10.1); CARBON DIOXIDE 30.4 mmol/L (21-32); CHLORIDE 105 mmol/L (98-107); COR CA(FOR HYPOALB) 9.3 mg/dL (8.5-10.1); COR NA(FOR HYPERGLY) 140 mmol/L (136-145); CREATININE 0.58 mg/dL (0.55-1.02); SODIUM 139 mmol/L (136-145); TOTAL PROTEIN 5.3 g/dL (6.4-8.2); eGFR NON BLACK RACES > 60 (>60)
[2021-02-20] MEDS: CARAFATE ORAL SUSP PO SCH ×2 (06:17→12:19)
[2021-02-20] MEDS: FERROUS GLUCONATE PO SCH (06:17)
[2021-02-20] MEDS: K-RIDER 10 MEQ/NS 100 ML 10 MEQ/100 ML BAG IV PRN ×2 (06:52→08:23)
[2021-02-20 07:14] LABS: ANISOCYTOSIS SLIGHT; BURR CELLS SLIGHT; HYPOCHROMASIA 1+; MICROCYTOSIS 1+; OVALOCYTES 1+; PLATELET MORPHOLOGY COMMENT NORMAL (NORMAL)
[2021-02-20] MEDS ORDERED: NS + KCL 20 MEQ/L 1,000 ML IV ONE (08:02)
[2021-02-20] MEDS: PEPCID 20 MG IV PREMIX* 20 MG/50 ML BAG IV SCH (08:23)
[2021-02-20] MEDS: NS + KCL 20 MEQ/L 1,000 ML IV SCH (08:23)
[2021-02-20] MEDS: PROTONIX INJ 40 MG VIAL IVP SCH (08:24)
[2021-02-20] MEDS ORDERED: NS + KCL 40 MEQ/L 1,000 ML IV SCH (09:00)
[2021-02-20] MEDS ORDERED: NS 500 ML IV 500 ML IV ONE (11:34)
[2021-02-20] MEDS ORDERED: VERSED ONE (11:44)
[2021-02-20] MEDS ORDERED: XYLOCAINE 2 % (PLAIN) ONE (11:44)
[2021-02-20] MEDS ORDERED: DIPRIVAN VIAL ONE (11:44)
[2021-02-20] MEDS ORDERED: EPHEDRINE SULFATE INJ ONE (11:44)
[2021-02-20] MEDS: SINGULAIR TAB 10 MG PO SCH (12:19)
[2021-02-20] MEDS: FOLIC ACID TAB 1 MG PO SCH (12:20)
[2021-02-20] MEDS: MIRALAX POWDER (1 DOSE 17 G) PO SCH (12:20)
--- NOTE | 2021-02-20 13:27 | W.DIS.FURT ---
Summary of Discharge Discharge Summary of Date Date of Exam: 02/20/21 Admission Date Date of Admission: 02/16/21 Admission Diagnosis Patient Problems (Updated 02/27/21 @ 13:18 by Alba Lopez) DKA (diabetic ketoacidosis) (Acute) E13.10 Vomiting (Acute) R11.10 Hospital Course: Ms House is a 40y/o female with a PMH of diabetes, Crohn's disease s/p bowel resection, GERD and HLD presented with worsening abdominal pain, nausea, vomiting and decreased oral intake. Patient has been sick for over a week and has been gradually worsening. She reports severe lower abdominal pain. She was diagnosed with Crohn's disease in 2009 and was seeing GI in [facility]. She had a small bowel resection and has never had any flare ups since then. She has never been on any medicine for Crohn's. Her last colonoscopy was in 2011. Patient uses insulin pump but since she has been sick she switched to insulin injections to help better control her FSBG.She has been using SSI. She has not been able to tolerate much PO intake except gatorade. She was having diarrhea with blood but that resolved last week. She had a BM day before yesterday with no blood. She reports subjective fever and chills. Denies URI Sx. In the ER, patient's glucose was above 700, WBC 26, Creat 1.84 and CO2 9.7. She had small acetone present and elevated lipase. Patient was admitted for intractable N/V, DKA and acute pancreatitis. She received IV fluid boluses and was given regular insulin initially and then started on insulin drip. She was started on pain control, anti-emetics, GI cocktail, PPI and famotidine. She was kept NPO and diet adva nced as tolerated. CTAP showed Small collapsed hiatal hernia with mild thickening of the visualized distal esophagus which may represent postinflammatory change or reflux esophagitis in the appropriate clinical setting. Dr Lynch was consulted and recommended EGD and colonoscopy. EGD showed severe reflux esophagitis involving the lower third of the esophagus. No Crohn's disease. Patient was not able to complete colon prep so partial sigmoidoscopy was done which did not show any inflammation or bleeding. Patient was able to tolerate PO intake and stable for discharge home. She was educated regarding diabetes and proper use of insulin. She will follow up with PCP and surgery as scheduled. Vital Signs: Vital Signs (72 hours) 02/17/21 15:23 02/17/21 17:07 02/17/21 17:37 Temperature 99.1 F Pulse Rate [Brachial] 100 H Respiratory Rate 18 18 18 Blood Pressure [Right Arm] 116/59 O2 Sat by Pulse Oximetry 100 02/17/21 20:00 02/17/21 21:45 02/17/21 22:15 Temperature 98.2 F Pulse Rate [Brachial] 98 H Respiratory Rate 20 18 18 Blood Pressure [Right Arm] 121/56 O2 Sat by Pulse Oximetry 99 02/18/21 00:00 02/18/21 04:00 02/18/21 06:04 Temperature 97.9 F 98.6 F Pulse Rate [Brachial] 95 H 94 H Respiratory Rate 18 20 20 Blood Pressure [Right Arm] 119/55 121/54 O2 Sat by Pulse Oximetry 97 100 02/18/21 08:00 02/18/21 08:55 02/18/21 09:25 Temperature 98.9 F Pulse Rate [Brachial] 101 H Respiratory Rate 20 20 20 Blood Pressure [Right Arm] 122/56 O2 Sat by Pulse Oximetry 100 02/18/21 12:00 02/18/21 12:42 02/18/21 13:12 Temperature 98.9 F Pulse Rate [Brachial] 87 Respiratory Rate 18 20 20 Blood Pressure [Right Arm] 118/61 O2 Sat by Pulse Oximetry 100 02/18/21 16:00 02/18/21 16:52 02/18/21 17:22 Temperature 98.9 F Pulse Rate [Brachial] 89 Respiratory Rate 20 20 20 Blood Pressure [Right Arm] 116/58 O2 Sat by Pulse Oximetry 100 02/18/21 20:00 02/18/21 21:25 02/18/21 21:55 Temperature 98.1 F Pulse Rate [Brachial] 96 H Respiratory Rate 20 20 20 Blood Pressure [Right Arm] 128/64 O2 Sat by Pulse Oximetry 100 02/18/21 23:05 02/19/21 03:24 02/19/21 08:00 Temperature 98.4 F 98.4 F 98.4 F Pulse Rate [Brachial] 94 H 96 H 82 Respiratory Rate 18 20 20 Blood Pressure [Right Arm] 111/55 108/56 99/54 O2 Sat by Pulse Oximetry 98 99 98 02/19/21 08:05 02/19/21 08:20 02/19/21 08:35 Temperature 98.8 F 98.8 F Pulse Rate [Brachial] 91 H 93 H 82 Respiratory Rate 18 18 18 Blood Pressure [Right Arm] 127/55 133/55 118/60 O2 Sat by Pulse Oximetry 96 97 98 02/19/21 08:50 02/19/21 09:00 02/19/21 09:05 Temperature Pulse Rate [Brachial] 99 H 97 H Respiratory Rate 18 21 18 Blood Pressure [Right Arm] 125/60 130/68 O2 Sat by Pulse Oximetry 98 100 02/19/21 09:30 02/19/21 11:13 02/19/21 13:53 Temperature 97.2 F L Pulse Rate [Brachial] 91 H Respiratory Rate 21 19 18 Blood Pressure [Right Arm] 130/61 O2 Sat by Pulse Oximetry 99 02/19/21 14:23 02/19/21 14:53 02/19/21 16:00 Temperature 97.8 F Pulse Rate [Brachial] 97 H Respiratory Rate 18 18 18 Blood Pressure [Right Arm] 101/70 O2 Sat by Pulse Oximetry 95 02/19/21 17:41 02/19/21 18:11 02/19/21 20:00 Temperature 98.1 F Pulse Rate [Brachial] 98 H Respiratory Rate 20 20 22 Blood Pressure [Right Arm] 136/77 O2 Sat by Pulse Oximetry 99 02/19/21 21:30 02/19/21 22:00 02/20/21 00:00 Temperature 98.1 F Pulse Rate [Brachial] 88 Respiratory Rate 22 22 20 Blood Pressure [Right Arm] 142/65 O2 Sat by Pulse Oximetry 99 02/20/21 04:00 02/20/21 04:45 02/20/21 05:15 Temperature 98.7 F Pulse Rate [Brachial] 85 Respiratory Rate 20 20 20 Blood Pressure [Right Arm] 113/65 O2 Sat by Pulse Oximetry 99 02/20/21 08:00 02/20/21 12:57 Temperature 98.2 F Pulse Rate [Brachial] 80 Respiratory Rate 18 20 Blood Pressure [Right Arm] 96/51 O2 Sat by Pulse Oximetry 99 Labs: Laboratory Last Values WBC 5.6 X10^3/uL (3.6-10.0) 02/20/21 05:27 RBC 3.95 X10^6/uL (3.5-5.4) 02/20/21 05:27 Hgb 8.6 g/dL (12.0-16.0) L 02/20/21 05:27 Hct 26.7 % (36.0-47.0) L 02/20/21 05:27 MCV 67.7 fL (80.0-100.0) L 02/20/21 05:27 MCH 21.7 pg (27.0-34.0) L 02/20/21 05:27 MCHC 32.0 g/dL (33.0-35.0) L 02/20/21 05:27 RDW 17.5 % (11.6-16.5) H 02/20/21 05:27 Plt Count 276 X10^3/uL (150.0-450.0) 02/20/21 05:27 Plt Count Comment Adequate (ADEQUATE) 02/20/21 05:27 MPV 8.1 fL (7.4-11.0) 02/20/21 05:27 Neut % (Auto) 59.8 % (42.0-75.0) 02/20/21 05:27 Lymph % (Auto) 28.1 % (21.0-51.0) 02/20/21 05:27 [place] % (Auto) 8.8 % (0.0-13.0) 02/20/21 05:27 Eos % (Auto) 2.6 % (0.9-2.9) 02/20/21 05:27 Baso % (Auto) 0.7 % (0.2-1.0) 02/20/21 05:27 Neut # (Auto) 3.3 x10^3/uL (2.2-4.8) 02/20/21 05:27 Lymph # (Auto) 1.6 X10^3/uL (1.3-2.9) 02/20/21 05:27 [place] # (Auto) 0.5 x10^3/uL (0.3-0.8) 02/20/21 05:27 Eos # (Auto) 0.1 x10^3/uL (0.0-0.2) 02/20/21 05:27 Baso # (Auto) 0.0 X10^3/uL (0.0-0.1) 02/20/21 05:27 Absolute Nucleated RBC 0.0 /100WBC 02/20/21 05:27 Total Counted 100 02/17/21 06:30 Neutrophils % (Manual) 84 % (39-76) H 02/17/21 06:30 Band Neutrophils % 1 % (0-10) 02/17/21 06:30 Lymphocytes % (Manual) 6 % (13-43) L 02/17/21 06:30 Monocytes % (Manual) 7 % (4-9) 02/17/21 06:30 Metamyelocytes % 1 02/17/21 06:30 Myelocytes % 1 02/17/21 06:30 Plt Morphology Comment Normal (NORMAL) 02/20/21 05:27 RBC Morphology Abnormal (NORMAL) A 02/20/21 05:27 Hypochromasia 1+ A 02/20/21 05:27 Anisocytosis Slight A 02/20/21 05:27 Microcytosis 1+ A 02/20/21 05:27 Ovalocytes 1+ A 02/20/21 05:27 [place] Cells Slight A 02/20/21 05:27 ESR 21 MM/HOUR (0-20) H 02/19/21 07:06 Sodium 139 mmol/L (136-145) 02/20/21 05:27 Corrected Sodium 140 mmol/L (136-145) 02/20/21 05:27 Potassium 3.0 mmol/L (3.5-5.1) L* 02/20/21 05:27 Chloride 105 mmol/L (98-107) 02/20/21 05:27 Carbon Dioxide 30.4 mmol/L (21-32) 02/20/21 05:27 BUN 1 mg/dL (7-18) L 02/20/21 05:27 Creatinine 0.58 mg/dL (0.55-1.02) 02/20/21 05:27 Est GFR (MDRD) Af Amer > 60 (>60) 02/20/21 05:27 Est GFR (MDRD) Non-Af > 60 (>60) 02/20/21 05:27 Glucose 134 mg/dL (65-99) H 02/20/21 05:27 POC Glucose (mg/dL) 108 mg/dL (65-99) H 02/20/21 11:12 Calcium 7.9 mg/dL (8.5-10.1) L 02/20/21 05:27 Corrected Calcium 9.3 mg/dL (8.5-10.1) 02/20/21 05:27 Magnesium 1.9 mg/dL (1.7-2.9) 02/20/21 05:27 Iron 20 ug/dL (50-175) L 02/18/21 05:45 Transferrin 262 mg/dL (202-364) 02/18/21 05:45 Ferritin 15 ng/mL (8-252) 02/18/21 05:45 Total Bilirubin 0.20 mg/dL (0.2-1.0) 02/20/21 05:27 AST 518 Units/L (15-37) H 02/20/21 05:27 ALT 218 Units/L (12-78) H 02/20/21 05:27 Alkaline Phosphatase 175 Units/L (46-116) H 02/20/21 05:27 C-Reactive Protein 17.10 mg/L (0-3.0) H 02/17/21 15:09 Total Protein 5.3 g/dL (6.4-8.2) L 02/20/21 05:27 Albumin 2.2 g/dL (3.4-5.0) L 02/20/21 05:27 Globulin 3.1 g/dL (2.5-4.5) 02/20/21 05:27 Albumin/Globulin Ratio 0.7 Ratio (1.1-2.1) L 02/20/21 05:27 Lipase 646 Units/L (73-393) H 02/16/21 22:15 Vitamin B12 1126 pg/mL (193-986) H 02/18/21 05:45 Folate 6.6 ng/mL (>8.6) L 02/18/21 05:45 Specimen Type Clean catch urine 02/16/21 23:54 Urine Color Straw (YELLOW) 02/16/21 23:54 Urine Appearance Slightly hazy (CLEAR) 02/16/21 23:54 Urine pH 5.0 (5.0 - 8.0) 02/16/21 23:54 Ur Specific [place] 1.015 (1.000-1.030) 02/16/21 23:54 Urine Protein 1+ (NEGATIVE) 02/16/21 23:54 Urine Glucose (UA) 4+ (NEGATIVE) 02/16/21 23:54 Urine Ketones 4+ (NEGATIVE) 02/16/21 23:54 Urine Occult Blood 2+ (NEGATIVE) 02/16/21 23:54 Urine Nitrite Negative (NEGATIVE) 02/16/21 23:54 Urine Bilirubin Negative (NEGATIVE) 02/16/21 23:54 Urine Urobilinogen Normal (NORMAL) 02/16/21 23:54 Ur Leukocyte Esterase Negative (NEGATIVE) 02/16/21 23:54 Urine RBC 0-2 /HPF (0-3) 02/16/21 23:54 Urine WBC None seen /HPF (0-5) 02/16/21 23:54 Ur Squamous Epith Cells Negative /HPF (NEGATIVE) 02/16/21 23:54 Urine Bacteria Negative /HPF (NEGATIVE) 02/16/21 23:54 Ur Culture Indicated? No/not indicated 02/16/21 23:54 Stool Description 10g,brown/bloody 02/19/21 11:25 Stl Occult Blood (IFOB) Positive (NEGATIVE) A 02/19/21 11:25 Acetone, Semi-Quant Small (NEGATIVE) H 02/16/21 22:15 SARS CoV-2 RNA Rapid KYM Negative (NEGATIVE) 02/16/21 23:58 Tissue Pathology To follow 02/19/21 07:41 Reason For Visit: DKA, VOMITING Discharge Date Discharge Date: 02/20/21 Discharge Diagnosis All Active Problems (Updated 02/27/21 @ 13:18 by Alba Lopez) Acute pancreatitis (Acute) Folate deficiency (Acute) LUISA (iron deficiency anemia) (Acute) Anemia (Acute) Hypokalemia (Acute) Esophagitis (Acute) ANA CRISTINA (acute kidney injury) (Acute) Dehydration (Acute) Crohn disease (Acute) Abdominal pain (Acute) Contusion (Active) DKA (diabetic ketoacidosis) (Acute) Leukocytosis (Acute) Hyperglycemia (Acute) Hypokalemia (Acute) Vomiting (Acute) Plan of Treatment: Continue with present treatment and follow up plan. Pt is to keep follow up appointment as instructed and take medications as ordered. Discharge Medications Discharge Medications: promethazine [From Phenergan] Allergy (Unknown, Verified 04/07/18 00:19) ceftriaxone [From Rocephin] Allergy (Verified 04/06/18 15:20) hydrocodone [From Lorcet (hydrocodone)] Allergy (Verified 02/16/21 21:32) Latex, Natural Rubber Allergy (Verified 04/07/18 00:59) meperidine [From Demerol] Allergy (Verified 04/06/18 15:20) morphine Allergy (Verified 02/16/21 21:32) penicillin V Allergy (Verified 04/06/18 15:20) tape Allergy (Uncoded 04/07/18 00:59) New Prescriptions Lantus U-100 Insulin 15 unit SUBCUT QHS 30 Days #10 ml 02/20/21 [Rx] ferrous gluconate 324 mg PO BIDWM 30 Days #60 tab 02/20/21 [Rx] folic acid 1 mg PO DAILY 30 Days #30 tab 02/20/21 [Rx] hyoscyamine sulfate [Hyosyne] 30 ml PO Q4H PRN 7 Days #200 ml 02/20/21 [Rx] ondansetron 4 mg PO Q6H PRN #20 tab 02/20/21 [Rx] pantoprazole 40 mg PO BID 30 Days #60 tab 02/20/21 [Rx] potassium chloride 10 meq PO DAILY 7 Days #7 cap 02/20/21 [Rx] sucralfate 1 g PO ACHS 15 Days #45 tab 02/20/21 [Rx] Follow up and Referral Follow Up: 2 Weeks (PCP) 2 Weeks (Surgery ) Discharge Disposition Assessment: No acute distress at time of discharge. Discharge Disposition: Home Discharge Condition: Stable Discharge Plan Discharge Plan Hospital Course: Ms House is a 40y/o female with a PMH of diabetes, Crohn's disease s/p bowel resection, GERD and HLD presented with worsening abdominal pain, nausea, vomiting and decreased oral intake. Patient has been sick for over a week and has been gradually worsening. She reports severe lower abdominal pain. She was diagnosed with Crohn's disease in 2009 and was seeing GI in [facility]. She had a small bowel resection and has never had any flare ups since then. She has never been on any medicine for Crohn's. Her last colonoscopy was in 2011. Patient uses insulin pump but since she has been sick she switched to insulin injections to help better control her FSBG.She has been using SSI. She has not been able to tolerate much PO intake except gatorade. She was having diarrhea with blood but that resolved last week. She had a BM day before yesterday with no blood. She reports subjective fever and chills. Denies URI Sx. In the ER, patient's glucose was above 700, WBC 26, Creat 1.84 and CO2 9.7. She had small acetone present and elevated lipase. Patient was admitted for intractable N/V, DKA and acute pancreatitis. She received IV fluid boluses and was given regular insulin initially and then started on insulin drip. She was started on pain control, anti-emetics, GI cocktail, PPI and famotidine. She was kept NPO and diet advanced as tolerated. CTAP showed Small collapsed hiatal hernia with mild thickening of the visualized distal esophagus which may represent postinflammatory change or reflux esophagitis in the appropriate clinical setting. Dr Lynch was consulted and recommended EGD and colonoscopy. EGD showed severe reflux esophagitis involving the lower third of the esophagus. No Crohn's disease. Patient was not able to complete colon prep so partial sigmoidoscopy was done which did not show any inflammation or bleeding. Patient was able to tolerate PO intake and stable for discharge home. She was educated regarding diabetes and proper use of insulin. She will follow up with PCP and surgery as scheduled. Patient Disposition: 01 HOME, SELF-CARE Condition: Stable Health Concerns: Post Hospitalization: new medications and changes needed to prevent readmission or further decline. Pt educated and given instructions on all concerns. Care Plan Goals: Problem: Pain/Alteration in Comfort Goal: Improve/ Resolve Pain; Achieve Pain Tolerance Instructions: Take pain medications as prescribed. Contact your primary care provider if your pain is unrelieved or worsens. Follow up with primary care provider as directed. Plan of Treatment: Continue with present treatment and follow up plan. Pt is to keep follow up appointment as instructed and take medications as ordered. Assessment: No acute distress at time of discharge. Prescriptions: New folic acid 1 mg Tablet 1 mg PO DAILY 30 Days Qty: 30 RF: 0 ferrous gluconate 324 mg (38 mg iron) Tablet 324 mg PO BIDWM 30 Days Qty: 60 RF: 0 potassium chloride 10 mEq capsule, extended release 10 meq PO DAILY 7 Days Qty: 7 RF: 0 ondansetron 4 mg tablet,disintegrating 4 mg PO Q6H PRN (Reason: nausea and vomiting) Qty: 20 RF: 0 Continued gabapentin 300 mg capsule 300 mg PO HS RF: 0 oxycodone-acetaminophen 7.5-325 mg tablet 1 tab PO BID PRN (Reason: Pain) RF: 0 Changed pantoprazole 40 mg tablet,delayed release (DR/EC) 40 mg PO BID 30 Days Qty: 60 RF: 0 Discontinued Lantus U-100 Insulin 100 unit/mL Solution 25 unit SUBCUT QHS RF: 0 No Action insulin lispro [Admelog U-100 Insulin lispro] 100 unit/mL solution See Rx Instructions .ROUTE .COMPLEX RF: 0 Lantus U-100 Insulin 100 unit/mL solution 25 unit SUBCUT QHS RF: 0 Follow ups/Referrals Follow ups/Referrals: ADELA GARCIA [STAFF PHYSICIAN] - 03/06/21 1:00 pm Alba Lopez [Primary Care Provider] - 03/06/21 1:30 pm Instructions Instructions: Colonoscopy, Adult, Care After, [id number], Food Choices for Gastroesophageal Reflux Disease, Adult, Hernia, Adult, [id number], Type 2 Diabetes Mellitus, Self Care, Adult, [id number], Nausea and Vomiting, Adult, [id number], Abdominal Pain, Adult, Esophagogastroduodenoscopy, Care After, [place] Diet Stand Alone Forms: Excuse From Work or School, Precautions for COVID19, [facility], Patient Portal, Social Distancing
[2021-02-20 14:01] VITALS: BP 125/64
[2021-02-20] MEDS: LANTUS SC SCH (14:35)
[2021-02-20] MEDS: PRAVACHOL PO SCH (14:36)
[2021-02-20] MEDS: K-DUR TAB 20 MEQ PO PRN ×2 (15:31→15:45)
[2021-02-20] MEDS ORDERED: PERCOCET TAB 5/325 MG PO ONE (16:02)
[2021-02-20] MEDS ORDERED: PERCOCET TAB 5/325 MG ONE (16:04)
[2021-02-24 06:26] LABS: ANTI-NUCLEAR ANTIBODY TEST None Detected (None Detected)
== END 2021-02-20 16:10 | disposition home or self-care (01) | DRG 638 ==
LOC: OBS 21:23 → ER 21:23 → OBSVTOIN 02-17 02:29 → OBS 02-17 02:58
PROVIDERS: ADMIT Internal Medicine; ATTEND Internal Medicine
DX: K21.00 Gastro-esophageal reflux disease with esophagitis, without bleeding; R11.2 Nausea with vomiting, unspecified; E87.6 Hypokalemia; E86.0 Dehydration; N17.8 Other acute kidney failure; Z79.4 Long term (current) use of insulin; K50.911 Crohn's disease, unspecified, with rectal bleeding; Z20.822 Contact with and (suspected) exposure to COVID-19; R10.30 Lower abdominal pain, unspecified; E53.8 Deficiency of other specified B group vitamins; E10.10 Type 1 diabetes mellitus with ketoacidosis without coma; D50.8 Other iron deficiency anemias

== ENCOUNTER 2021-02-26 13:20 | Inpatient (IN) ==
[2021-02-26 13:27] VITALS: BMI 26.6
[2021-02-26] MEDS ORDERED: ZOFRAN INJ 4 MG VIAL IVP ONE ×2 (14:06→18:31)
--- NOTE | 2021-02-26 14:06 | DR.GENAD ---
HPI Time Seen Time Seen by Provider: 02/26/21 14:01 PCP Primary Care Physician: kathryn HPI Comment HPI Comment: A 40 y/o female presenting with c/o nausea and vomiting x 1 month. This has worked up here last week, she states. (But I do not see an encounter documentation for last week at this ED). She states she was informed she has a hernia and that she she pending an appt. to see a surgeon. Next she c/o a stabbing and non-radiating chest pain. Complaint/Symptoms Chief Complaint:: Pt c/o n/v x 1 month. She states she was seen last week for same and has appt scheduled with surgeon for evaluation of hernia. Pt also c/o chest pain. She states " It feels like someone is stabbing me with a knife and twisting it." Pt reports she is out of Lantus. COVID-19 Coronavirus risk:travel/contact w/high risk person: No Has patient experienced Coronavirus symptoms: No Source History Provided: Patient Timing Onset of Chief Complaint: 02/26/21 Came on: Gradually Duration Duration: Constant PMH PMH Past Medical History: Yes Past Medical History: Anxiety, Arthritis and Diabetes Past Surgical History: Yes Surgical History: Cholecystectomy, [employer] Surgery and Tonsillectomy Family History History of Family Medical Conditions: Yes Family Medical History: Cancer Social History Does patient currently use any type of tobacco product: No Have you used tobacco products in the last 12 months: No Type of Tobacco Use: None Alcohol Use: None Do you use any recreational Drugs:: No Lives With: Family Lives Where: Home Travel Risk Coronavirus risk:travel/contact w/high risk person: No Has patient experienced Coronavirus symptoms: No Infectious screening In the last 2 months have you had wt loss of >10#?: NO Have you had fever, night sweats or hemotysis?: No Have you traveled outside the country in the last 6 months?: No Isolation: Standard ROS Review of Systems Constitutional: No Symptoms Reported Eyes: No Symptoms Reported ENTM: No Symptoms Reported Respiratoy: No Symptoms Reported Cardiovascular: Chest Pain Gastrointestinal/Abdominal: Nausea and Vomiting Genitourinary: No Symptoms Reported Neurological: No Symptoms Reported Musculoskeletal: No Symptoms Reported Integumentary: No Symptoms Reported Hematologic/Lymphatic: No Symptoms Reported Endocrine: No Symptoms Reported Psychiatric: No Symptoms Reported PE Vital Signs Vitals: Temperature 98.5 F Pulse Rate 111 Respiratory Rate 18 Blood Pressure [Right Arm] 125/64 Blood Pressure 130/58 O2 Sat by Pulse Oximetry 100 General Limitations: No Limitations General Appearance: Alert and In No Apparent Distress Head Head Exam: Normal Inspection, Atraumatic and Normocephalic Eyes Eye exam: Normal Appearance and EOMI ENT ENT Exam: Normal Exam, Normal Oropharynx, Normal External Ear Exam and Mucous Membranes Moist Neck Neck Exam: Normal Inspection, Full ROM and Trachea Midline Chest Chest Inspection: Normal Inspection and Symmetric Chest Wall Rise Respiratory Respiratory Exam: Normal Lung Sounds Bilat Cardiovascular Cardiovascular Exam: Regular Rate, Normal Rhythm, Normal Heart Sounds, +S1 and +S2 Abdominal Exam Abdominal Exam: Normal Inspection, Normal Bowel Sounds and Soft Extremities Extremities Exam: Normal Inspection and Full ROM Back Back Exam: Normal Inspection and Full ROM Neurologic Neurological Exam: Alert and Oriented X3 Psychiatric Psychiatric Exam: Normal Mood Skin Skin Exam: Intact and Normal Color COURSE Treatment Treatment: Name: SHERLYN RODARTE [facility]#: [id number]: [id number] : 1980Sex: FLocation: ER Order Number(s): [id number](s):KUB Ordering Physician: INDIRA SANCHEZ Primary Care: Alba Lopez M.D. Service Date: 02/26/21 Service Time: 1401 KUB HISTORY: SOB, NAUSEA, VOMITING Study: Single flat views of the abdomen Comparison:None Findings: There is a normal bowel gas pattern.No free air..No abnormal calcifications or abnormal soft tissue shadows. No acute bony abnormalities. IMPRESSION: 1. No evidence for acute abdominal pathology. Electronically signed by: ISELA ARAUJO (Feb 26, 2021 15:14:04) Report Electronically signed: 02/26/21 1516 CC: Indira Sanchez Reevaluation 1st: Improved 2nd: Improved Education/Counseling Education/Counseling: Patient, Education and Counseling Educated On: Treatment, Diagnosis, Prognosis and Needs for Follow Up ROR Labs Reviewed Result Diagrams: 02/26/21 14:21 02/26/21 14:21 Laboratory: WBC 22.5 X10^3/uL (3.6-10.0) H 02/26/21 14:21 RBC 5.03 X10^6/uL (3.5-5.4) 02/26/21 14:21 Hgb 10.7 g/dL (12.0-16.0) L 02/26/21 14:21 Hct 34.3 % (36.0-47.0) L 02/26/21 14:21 MCV 68.2 fL (80.0-100.0) L 02/26/21 14:21 MCH 21.3 pg (27.0-34.0) L 02/26/21 14:21 MCHC 31.3 g/dL (33.0-35.0) L 02/26/21 14:21 RDW 18.6 % (11.6-16.5) H 02/26/21 14:21 Plt Count 783 X10^3/uL (150.0-450.0) H 02/26/21 14:21 Plt Count Comment Increased (ADEQUATE) A 02/26/21 14: MPV 8.0 fL (7.4-11.0) 02/26/21 14:21 Neut % (Auto) 78.8 % (42.0-75.0) H 02/26/21 14:21 Lymph % (Auto) 5.3 % (21.0-51.0) L 02/26/21 14:21 [place] % (Auto) 15.6 % (0.0-13.0) H 02/26/21 14:21 Eos % (Auto) 0.0 % (0.9-2.9) L 02/26/21 14:21 Baso % (Auto) 0.3 % (0.2-1.0) 02/26/21 14:21 Neut # (Auto) 17.7 x10^3/uL (2.2-4.8) H 02/26/21 14:21 Lymph # (Auto) 1.2 X10^3/uL (1.3-2.9) L 02/26/21 14:21 [place] # (Auto) 3.5 x10^3/uL (0.3-0.8) H 02/26/21 14:21 Eos # (Auto) 0.0 x10^3/uL (0.0-0.2) 02/26/21 14:21 Baso # (Auto) 0.1 X10^3/uL (0.0-0.1) 02/26/21 14:21 Absolute Nucleated RBC 0.0 /100WBC 02/26/21 14:21 Total Counted 100 02/26/21 14: Neutrophils % (Manual) 73 % (39-76) 02/26/21 14:21 Band Neutrophils % 4 % (0-10) 02/26/21 14:21 Lymphocytes % (Manual) 15 % (13-43) 02/26/21 14:21 Monocytes % (Manual) 8 % (4-9) 02/26/21 14:21 Giant Platelets Rare 02/26/21 14:21 Plt Morphology Comment Abnormal (NORMAL) A 02/26/21 14: RBC Morphology Abnormal (NORMAL) A 02/26/21 14: Polychromasia 1+ 02/26/21 14: Microcytosis 1+ A 02/26/21 14:21 PT 13.7 SECONDS (11.8-14.3) 02/26/21 14:21 INR Target Range - 02/26/21 14: INR 1.10 (0.8-1.3) 02/26/21 14:21 Sodium 134 mmol/L (136-145) L 02/26/21 14:21 Corrected Sodium 138 mmol/L (136-145) 02/26/21 14: Potassium 3.8 mmol/L (3.5-5.1) 02/26/21 14: Chloride 95 mmol/L (98-107) L 02/26/21 14: Carbon Dioxide 12.9 mmol/L (21-32) L* 02/26/21 14: BUN 12 mg/dL (7-18) 02/26/21 14: Creatinine 1.29 mg/dL (0.55-1.02) H 02/26/21 14:21 Est GFR (MDRD) Af Amer 58 (>60) L 02/26/21 14: Est GFR (MDRD) Non-Af 48 (>60) L 02/26/21 14:21 Glucose 249 mg/dL (65-99) H 02/26/21 14:21 Calcium 9.3 mg/dL (8.5-10.1) 02/26/21 14:21 Corrected Calcium TNP 02/26/21 14:21 Total Bilirubin 0.50 mg/dL (0.2-1.0) 02/26/21 14:21 AST 19 Units/L (15-37) 02/26/21 14:21 ALT 66 Units/L (12-78) 02/26/21 14:21 Alkaline Phosphatase 197 Units/L (46-116) H 02/26/21 14:21 Creatine Kinase 35 Units/L (26-192) 02/26/21 14:21 CK-MB (CK-2) < 1.0 ng/mL (0-4.0) 02/26/21 14:21 CK/CKMB % Calc 2.9 % (<4) 02/26/21 14:21 Troponin I < 0.02 ng/mL (0-1.5) 02/26/21 14:21 Total Protein 7.4 g/dL (6.4-8.2) 02/26/21 14:21 Albumin 3.4 g/dL (3.4-5.0) 02/26/21 14:21 Globulin 4.0 g/dL (2.5-4.5) 02/26/21 14:21 Albumin/Globulin Ratio 0.9 Ratio (1.1-2.1) L 02/26/21 14:21 Amylase 505 Units/L (25-115) H 02/26/21 14:01 Lipase 1759 Units/L (73-393) H 02/26/21 14:01 Opioid Opioid Risk Tool Age (Heath box if 16-45): Yes History of Preadolescent Sexual Abuse: No Total: 1 Total Score Risk Category: Low Risk Copyright: [facility] predicting aberrant behaviors Diagnosis Discharge Problem: Acute pancreatitis Qualifiers: Pancreatitis type: unspecified pancreatitis type Acute pancreatitis com plication: unspecified Qualified Code(s): K85.90 - Acute pancreatitis without necrosis or infection, unspecified ADDITIONAL NOTES Additional Notes Additional Notes: Name: SHERLYN RODARTE [facility]#: [id number]: [id number] : 1980Sex: FLocation: ER Order Number(s): [id number](s):CHEST, 1 VIEW Ordering Physician: INDIRA SANCHEZ Primary Care: Alba Lopez M.D. Service Date: 02/26/21 Service Time: 1346 CHEST, 1 VIEW HISTORY: CHEST PAIN, SOB, NAUSEA, VOMITING Study: Single view of the chest. Comparison:None Findings: The cardiomediastinal silhouette is normal.No focal consolidations, pleural effusions or pneumothorax. Osseous structures demonstrate no acute abnormality. IMPRESSION: 1. No acute cardiopulmonary process. Electronically signed by: ISELA ARAUJO (Feb 26, 2021 14:09:13) Report Electronically sig
--- NOTE | 2021-02-26 14:11 | RAD ---
CHEST, 1 VIEWHISTORY: CHEST PAIN, SOB, NAUSEA, VOMITINGStudy: Single view of the chest.Comparison:NoneFindings:The cardiomediastinal silhouette is normal.No focal consolidations, pleural effusions or pneumothorax. Osseous structures demonstrate no acute abnormality.IMPRESSION:1. No acute cardiopulmonary process.Electronically signed by: ISELA ARAUJO (Feb 26, 2021 14:09:13)
[2021-02-26] MEDS ORDERED: NS 1000 ML 1,000 ML IV ONE ×4 (14:12→23:34)
[2021-02-26] MEDS ORDERED: NS 1000 ML 1,000 ML ONE (14:20)
[2021-02-26] MEDS ORDERED: ZOFRAN INJ 4 MG VIAL ONE (14:20)
[2021-02-26 14:41] LABS: BASOPHILS # (AUTO) 0.1 X10^3/uL (0.0-0.1); BASOPHILS % (AUTO) 0.3 % (0.2-1.0); HEMATOCRIT 34.3 % (36.0-47.0); HEMOGLOBIN 10.7 g/dL (12.0-16.0); LYMPHOCYTES # (AUTO) 1.2 X10^3/uL (1.3-2.9); LYMPHOCYTES % (AUTO) 5.3 % (21.0-51.0); MEAN CORPUSCULAR HEMOGLOBIN 21.3 pg (27.0-34.0); MEAN CORPUSCULAR HGB CONC 31.3 g/dL (33.0-35.0); MEAN CORPUSCULAR VOLUME 68.2 fL (80.0-100.0); MONOCYTES # (AUTO) 3.5 x10^3/uL (0.3-0.8); MONOCYTES % (AUTO) 15.6 % (0.0-13.0); NEUTROPHILS # (AUTO) 17.7 x10^3/uL (2.2-4.8); NEUTROPHILS % (AUTO) 78.8 % (42.0-75.0); PLATELET COUNT 783 X10^3/uL (150.0-450.0); RED BLOOD COUNT 5.03 X10^6/uL (3.5-5.4); RED CELL DISTRIBUTION WIDTH 18.6 % (11.6-16.5); WHITE BLOOD COUNT 22.5 X10^3/uL (3.6-10.0)
[2021-02-26 14:57] LABS: AMYLASE 505 Units/L (25-115)
[2021-02-26 14:58] LABS: LIPASE 1759 Units/L (73-393)
[2021-02-26 15:03] LABS: ALANINE AMINOTRANSFERASE 66 Units/L (12-78); ALBUMIN 3.4 g/dL (3.4-5.0); ALKALINE PHOSPHATASE 197 Units/L (46-116); ASPARTATE AMINO TRANSFERASE 19 Units/L (15-37); BLOOD UREA NITROGEN 12 mg/dL (7-18); CALCIUM 9.3 mg/dL (8.5-10.1); CHLORIDE 95 mmol/L (98-107); CKMB % 2.9 % (<4); COR NA(FOR HYPERGLY) 138 mmol/L (136-145); CREATINE KINASE 35 Units/L (26-192); CREATINE KINASE MB < 1.0 ng/mL (0-4.0); CREATININE 1.29 mg/dL (0.55-1.02); SODIUM 134 mmol/L (136-145); TOTAL PROTEIN 7.4 g/dL (6.4-8.2); TROPONIN I < 0.02 ng/mL (0-1.5); eGFR NON BLACK RACES 48 (>60)
[2021-02-26 15:05] LABS: CARBON DIOXIDE 12.9 mmol/L (21-32)
--- NOTE | 2021-02-26 15:16 | RAD ---
KUBHISTORY: SOB, NAUSEA, VOMITINGStudy: Single flat views of the abdomenComparison:NoneFindings:There is a normal bowel gas pattern.No free air..No abnormal calcifications or abnormal soft tissue shadows. No acute bony abnormalities.IMPRESSION:1. No evidence for acute abdominal pathology.Electronically signed by: ISELA ARAUJO (Feb 26, 2021 15:14:04)
[2021-02-26 15:25] LABS: BAND NEUTROPHILS % 4 % (0-10); GIANT PLATELET RARE; PLATELET MORPHOLOGY COMMENT ABNORMAL (NORMAL)
[2021-02-26 15:26] LABS: MICROCYTOSIS 1+; POLYCHROMASIA 1+
[2021-02-26] MEDS ORDERED: TORADOL 30 MG VIAL ONE (15:49)
[2021-02-26] MEDS ORDERED: TORADOL 30 MG VIAL IVP ONE (16:11)
[2021-02-26] MEDS ORDERED: MORPHINE SULFATE INJ 2 MG INJ IVP PRN (18:31)
[2021-02-26] MEDS ORDERED: LEVAQUIN PREMIX IV 500 MG 500 MG/100 ML BAG IV SCH (19:00)
[2021-02-26 19:26] LABS: ABG ALLEN TEST POS; ABG BASE EXCESS -20.8 mmol/L (-2.0-2.0); ABG HCO3 4.7 mmol/L (22-26)
[2021-02-26 19:48] LABS: AMYLASE 395 Units/L (25-115)
[2021-02-26 19:49] LABS: LIPASE 1639 Units/L (73-393)
[2021-02-26 19:50] LABS: SERUM ACETONE LARGE (NEGATIVE)
[2021-02-26 19:52] LABS: LACTIC ACID 1.1 mmol/L (0.4-2.0)
[2021-02-26] MEDS: FERROUS GLUCONATE PO SCH (20:38)
[2021-02-26] MEDS: ZOFRAN INJ 4 MG VIAL IVP PRN (20:40)
[2021-02-26] MEDS: DILAUDID INJ IVP PRN (20:40)
[2021-02-26] MEDS ORDERED: INVANZ INJ 1 GM VIAL 1 GM in NS 100 ML IV + SPIKE MINIBAG* 100 ML IV SCH (21:00)
[2021-02-26] MEDS ORDERED: MYXREDLIN 100 UNIT/100 ML BAG 100 UNIT/100 ML PLAST..BAG IV PRN (21:02)
[2021-02-26] MEDS ORDERED: NS 100 ML IV 100 ML ONE ×2 (21:05→21:21)
[2021-02-26] MEDS ORDERED: MYXREDLIN 100 UNIT/100 ML BAG 100 UNIT/100 ML PLAST..BAG IV ONE (21:20)
[2021-02-26 21:27] LABS: BILIRUBIN,URINE NEGATIVE (NEGATIVE); BLOOD/HEMOGLOBIN,URINE 5+ (NEGATIVE); GLUCOSE, URINE 4+ (NEGATIVE); KETONES,URINE 4+ (NEGATIVE); LEUKOCYTE ESTERASE ,URINE NEGATIVE (NEGATIVE); NITRITES,URINE NEGATIVE (NEGATIVE); PROTEIN,URINE 2+ (NEGATIVE); UROBILINOGEN,URINE NORMAL (NORMAL)
[2021-02-26] MEDS: NS 1000 ML 1,000 ML IV SCH (21:44)
--- NOTE | 2021-02-26 21:45 | CT ---
HISTORYABD PAIN, N/V, DKA, PANCREATITIS, HX CHROHNSSTUDYABDOMEN/PELVIS WITH [id number]/06/2021TECHNIQUEMultiple axial images of the abdomen and pelvis were obtained from the lung bases to the pubic symphysis after the administration of IV contrast. Dose reduction techniques including Automated Exposure Control (AEC) and adjustment of mA and kV were utilized.FINDINGSThe visualized portions of the lung bases are unremarkable . The, spleen, pancreas, kidneys, and adrenal glands are unremarkable in their CT appearance. Post cholecystectomy changes. The liver is normal in size and exhibits mild hepatic steatosis.. No significant mesenteric lymphadenopathy or stranding can be observed. No free fluid or free air is seen within the abdomen. The appendix is not visualized. There is anastomotic sutures in the left mid abdomen from prior bowel resection. No bowel wall thickening or bowel dilatation is present. The colon is unremarkable. Specifically, there is no diverticulosis noted within the sigmoid colon. The urinary bladder is grossly unremarkable. The uterus is present. The bony structures are grossly intact.IMPRESSIONMild hepatic steatosis.Post cholecystectomy changes.No acute abdominal or pelvic pathology.Electronically signed by: Lester Seuro (Feb 26, 2021 21:43:28)
[2021-02-26 21:46] LABS: APPEARANCE,URINE CLEAR (CLEAR); COLOR,URINE YELLOW (YELLOW)
[2021-02-26 21:47] LABS: BACTERIA,URINE TRACE /HPF (NEGATIVE); SQUAMOUS EPITHELIAL CELL,UR FEW /HPF (NEGATIVE)
[2021-02-26 22:03] LABS: BLOOD UREA NITROGEN 11 mg/dL (7-18); CALCIUM 8.1 mg/dL (8.5-10.1); CHLORIDE 97 mmol/L (98-107); CKMB % 3.3 % (<4); COR NA(FOR HYPERGLY) 142 mmol/L (136-145); CREATINE KINASE 30 Units/L (26-192); CREATINE KINASE MB < 1.0 ng/mL (0-4.0); CREATININE 1.35 mg/dL (0.55-1.02); SODIUM 132 mmol/L (136-145); TROPONIN I < 0.02 ng/mL (0-1.5); eGFR NON BLACK RACES 46 (>60)
[2021-02-26 22:07] LABS: CARBON DIOXIDE 6.4 mmol/L (21-32)
[2021-02-26] MEDS: NEURONTIN CAP 300 MG PO SCH ×2 (23:05→23:44)
[2021-02-26] MEDS: PROTONIX TAB 40 MG PO SCH ×2 (23:07→23:44)
[2021-02-26 23:46] LABS: ABG BASE EXCESS -22.3 mmol/L (-2.0-2.0)
[2021-02-26 23:47] LABS: ABG ALLEN TEST POS; ABG HCO3 4.7 mmol/L (22-26)
[2021-02-27] MEDS: NS 1000 ML 1,000 ML IV SCH ×2 (00:41→02:45)
[2021-02-27 02:20] LABS: BLOOD UREA NITROGEN 9 mg/dL (7-18); CALCIUM 7.8 mg/dL (8.5-10.1); CHLORIDE 108 mmol/L (98-107); COR NA(FOR HYPERGLY) 141 mmol/L (136-145); CREATININE 1.12 mg/dL (0.55-1.02); SODIUM 140 mmol/L (136-145); eGFR NON BLACK RACES 57 (>60)
[2021-02-27 02:21] LABS: CARBON DIOXIDE 12.7 mmol/L (21-32)
[2021-02-27] MEDS: DILAUDID INJ IVP PRN ×4 (03:15→21:06)
[2021-02-27 05:16] LABS: ALANINE AMINOTRANSFERASE 44 Units/L (12-78); ALBUMIN 2.6 g/dL (3.4-5.0); ALKALINE PHOSPHATASE 150 Units/L (46-116); AMYLASE 245 Units/L (25-115); ASPARTATE AMINO TRANSFERASE 16 Units/L (15-37); BLOOD UREA NITROGEN 8 mg/dL (7-18); CALCIUM 8.1 mg/dL (8.5-10.1); CHLORIDE 106 mmol/L (98-107); COR CA(FOR HYPOALB) 9.2 mg/dL (8.5-10.1); COR NA(FOR HYPERGLY) 138 mmol/L (136-145); CREATININE 1.02 mg/dL (0.55-1.02); LIPASE 895 Units/L (73-393); SODIUM 137 mmol/L (136-145); TOTAL PROTEIN 5.8 g/dL (6.4-8.2); eGFR NON BLACK RACES > 60 (>60)
[2021-02-27 05:20] LABS: BASOPHILS # (AUTO) 0.1 X10^3/uL (0.0-0.1); BASOPHILS % (AUTO) 0.3 % (0.2-1.0)
[2021-02-27 05:48] LABS: LYMPHOCYTES # (AUTO) 1.5 X10^3/uL (1.3-2.9); LYMPHOCYTES % (AUTO) 7.7 % (21.0-51.0); MEAN CORPUSCULAR HEMOGLOBIN 21.4 pg (27.0-34.0); MEAN PLATELET VOLUME 7.5 fL (7.4-11.0); MONOCYTES # (AUTO) 2.6 x10^3/uL (0.3-0.8); MONOCYTES % (AUTO) 13.8 % (0.0-13.0); NEUTROPHILS # (AUTO) 14.7 x10^3/uL (2.2-4.8); NEUTROPHILS % (AUTO) 78.2 % (42.0-75.0); PLATELET COUNT 620 X10^3/uL (150.0-450.0); WHITE BLOOD COUNT 18.9 X10^3/uL (3.6-10.0)
[2021-02-27 05:50] LABS: CARBON DIOXIDE 10.9 mmol/L (21-32)
[2021-02-27 05:54] LABS: BURR CELLS PRESENT; HYPOCHROMASIA 2+; MICROCYTOSIS 1+; OVALOCYTES PRESENT; PLATELET MORPHOLOGY COMMENT NORMAL (NORMAL)
[2021-02-27 06:02] LABS: SERUM ACETONE SMALL (NEGATIVE)
[2021-02-27] MEDS: FERROUS GLUCONATE PO SCH ×2 (06:38→17:45)
[2021-02-27 08:03] LABS: ABG BASE EXCESS -12.5 mmol/L (-2.0-2.0)
[2021-02-27 08:04] LABS: ABG ALLEN TEST POS; ABG HCO3 13.7 mmol/L (22-26)
[2021-02-27] MEDS: COLACE CAP 100 MG PO SCH (08:50)
[2021-02-27] MEDS: PROTONIX TAB 40 MG PO SCH (08:51)
[2021-02-27] MEDS: D5 1/2 NS 1000 ML 1,000 ML IV SCH ×3 (08:51→23:37)
[2021-02-27] MEDS: MICRO K EXTEN CAP 10 MEQ PO SCH (08:51)
[2021-02-27] MEDS: FOLIC ACID TAB 1 MG PO SCH (08:51)
[2021-02-27] MEDS: MILK OF MAGNESIA PO SCH (08:51)
[2021-02-27 09:24] LABS: BLOOD UREA NITROGEN 7 mg/dL (7-18); CALCIUM 8.2 mg/dL (8.5-10.1); CHLORIDE 105 mmol/L (98-107); COR NA(FOR HYPERGLY) 140 mmol/L (136-145); CREATININE 1.03 mg/dL (0.55-1.02); SODIUM 137 mmol/L (136-145); eGFR NON BLACK RACES > 60 (>60)
[2021-02-27 09:32] LABS: CARBON DIOXIDE 10.2 mmol/L (21-32)
[2021-02-27 13:48] LABS: BLOOD UREA NITROGEN 6 mg/dL (7-18); CALCIUM 8.2 mg/dL (8.5-10.1); CHLORIDE 104 mmol/L (98-107); COR NA(FOR HYPERGLY) 138 mmol/L (136-145); CREATININE 0.94 mg/dL (0.55-1.02); SODIUM 136 mmol/L (136-145); eGFR NON BLACK RACES > 60 (>60)
[2021-02-27 18:02] LABS: BLOOD UREA NITROGEN 5 mg/dL (7-18); CALCIUM 8.3 mg/dL (8.5-10.1); CARBON DIOXIDE 17.6 mmol/L (21-32); CHLORIDE 103 mmol/L (98-107); CREATININE 0.95 mg/dL (0.55-1.02); SODIUM 136 mmol/L (136-145); eGFR NON BLACK RACES > 60 (>60)
--- NOTE | 2021-02-27 18:09 | DR.H&P ---
H&P - History & Physical for Day of: H&P Date: 02/26/21 - Chief Complaint Chief Complaint: ABDOMINAL PAIN, N/V, WEAKNESS - History of Present Illness History of Present Illness: PT IS 40 WF ER ASMISSION WITH CO A 40 y/o WITH c/o nausea and vomiting x 1 month. This has worked up here last week, she states. (But I do not see an encounter documentation for last week at this ED). She states she was informed she has a hernia and that she she pending an appt. to see a surgeon. Next she c/o a stabbing and non-radiating chest pain. PT HAS PMH OF TYPE I DM ON INSULIN PUMP. PT ER LABS REVEALED ACUTE PANCREATITIS AND DKA. PT ADMITTED FOR TREATMENT OF ACUTE ILLNESS, ICU - Past Medical History Past Medical History: Diabetes, Anxiety, Arthritis - Past Surgical History Surgical History: Cholecystectomy, [employer] Surgery, Tonsillectomy - Family History Family Medical History: Cancer - Social History Does patient currently use any type of tobacco product: No Have you used tobacco products in the last 12 months: No Type of Tobacco Use: None Alcohol Use: None Drug Use: None - Medications Home Medications: promethazine [From Phenergan] Allergy (Unknown, Verified 04/07/18 00:19) ceftriaxone [From Rocephin] Allergy (Verified 04/06/18 15:20) hydrocodone [From Lorcet (hydrocodone)] Allergy (Verified 02/16/21 21:32) Latex, Natural Rubber Allergy (Verified 04/07/18 00:59) meperidine [From Demerol] Allergy (Verified 04/06/18 15:20) morphine Allergy (Verified 02/16/21 21:32) penicillin V Allergy (Verified 04/06/18 15:20) tape Allergy (Uncoded 04/07/18 00:59) CONTINUE taking the following medications Lantus U-100 Insulin 25 unit SUBCUT QHS 02/26/21 [History] insulin lispro [Admelog U-100 Insulin lispro] See Rx Instructions .ROUTE .COMPLEX 02/26/21 [History] - Review of Systems Constitutional: Weakness, Malaise ENT: No Symptoms Reported Respiratory: SOB with Excertion Cardiovascular: Palpitations, Edema Gastrointestinal: Nausea, Vomiting, Abdominal Pain, Constipation Genitourinary: Frequency Musculoskeletal: Back Pain Skin: No Symptoms Reported Neurological: Weakness - Physical Exam Vital Signs: Temperature 98.3 F Pulse Rate [Bilateral Radial] 99 Pulse Rate 113 Respiratory Rate 22 Blood Pressure [Right Arm] 118/67 Blood Pressure 105/58 O2 Sat by Pulse Oximetry 100 Oriented: Normal Eyes: Normal Ear: Normal Nose: Normal Throat: Normal Respiratory: RLL Diminished, LLL Diminished Cardiovascular: Tachycardia. negative: Edema : Normal Auscultation: Bowel Sounds: Normal Palpation: Normal Tenderness: RUQ, LUQ, Epigastric Skin: Decreased Turgur Musculoskeletal: Right Psychiatric: Anxiety Affect: Anxious Speech Pattern: Clear, Appropriate - Assessment/Plan (1) DKA (diabetic ketoacidosis) Qualifiers: Diabetes mellitus type: other specified (including SUNIL) Diabetes mellitus complication detail: without coma Qualified Code(s): E13.10 - Other specified diabetes mellitus with ketoacidosis without coma Status: Acute Plan: ADMIT, ICU. INSULIN DRIP WITH GLUCOSE CHECKS PER PROTOCOL, COVID 19 SWAB ON ADMISSION. BC AND UC, IV HYDRATION, STRICT I&OS. ABG, RESP CONSULT. EKG ON ADMISSION, ACETONE, SERIAL BMP, LACTIC ACID LEVEL. CT ABD PELVIS, PAIN AND NAUSEA CONTROL (2) GERD (gastroesophageal reflux disease) Status: Acute (3) Acute pancreatitis Qualifiers: Pancreatitis type: unspecified pancreatitis type Acute pancreatitis complication: unspecified Qualified Code(s): K85.90 - Acute pancreatitis without necrosis or infection, unspecified Status: Acute (4) Esophagitis Status: Acute - Allergies Allergies/Adverse Reactions: Allergies Allergy/AdvReac Type Severity Reaction Status Date / Time promethazine [From Phenergan] Allergy Unknown Verified 04/07/18 00:19 ceftriaxone [From Rocephin] Allergy Verified 04/06/18 15:20 hydrocodone Allergy Verified 02/16/21 21:32 [From Lorcet (hydrocodone)] Latex, Natural Rubber Allergy Verified 04/07/18 00:59 meperidine [From Demerol] Allergy Verified 04/06/18 15:20 morphine Allergy Verified 02/16/21 21:32 penicillin V Allergy Verified 04/06/18 15:20 tape Allergy Uncoded 04/07/18 00:59
[2021-02-27] MEDS ORDERED: KLOR-CON PO PRN ×2 (18:10→22:47)
[2021-02-27] MEDS ORDERED: MICRO K EXTEN CAP 10 MEQ PO PRN ×2 (18:10→22:47)
[2021-02-27] MEDS ORDERED: K-RIDER 10 MEQ/NS 100 ML 10 MEQ/100 ML BAG IV PRN (18:10)
[2021-02-27] MEDS ORDERED: POTASSIUM CHL 40 MEQ/NS 0.45% 500 ML IV PRN ×2 (18:10→22:47)
[2021-02-27] MEDS ORDERED: POTASSIUM CHLORIDE LIQ 20 MEQ UDC PO PRN ×2 (18:10→22:47)
[2021-02-27] MEDS ORDERED: K-DUR TAB 20 MEQ PO PRN ×2 (18:10→22:47)
[2021-02-27] MEDS ORDERED: POTASSIUM CHL 60 MEQ/NS 0.45% 500 ML IV PRN ×2 (18:10→22:47)
--- NOTE | 2021-02-27 18:17 | PCM.PROG ---
Progress Note - Progress Note for Day of Date of Exam: 02/27/21 - Subjective Subjective: PT IS 40 WF ER ADMISSION WITH DKA, PANCREATITIS. PT IS CURRENTLY ON IV HYDRATION WITH INSULIN DRIP PER PROTOCOL. PT SERUM ACETONE SMALL THIS AM, CO2 10.9. PT RENAL FUNCTION IS STABLE. PT CO PAIN TO UPPER ABDOMEN, ON DILAUDID FOR PAIN CONTROL. PT IS ON PPI THERAPY AND NPO. PT HAD DIFFICULT ABG COLLECTION THIS, RT REPORTS VENOUS COLLECTION WITH PLAN TO REPEAT. WBC 18.9. PT IS ON IV ATBX. PLAN TO CONTINUE SERIAL BMP UNTIL RESOLUTION IN ACIDOSIS. - Past Medical Family Social History Past Med/Fam/Surg Hx: No changes since H&P Allergies: Allergies promethazine [From Phenergan] Allergy (Unknown, Verified 04/07/18 00:19) ceftriaxone [From Rocephin] Allergy (Verified 04/06/18 15:20) hydrocodone [From Lorcet (hydrocodone)] Allergy (Verified 02/16/21 21:32) Latex, Natural Rubber Allergy (Verified 04/07/18 00:59) meperidine [From Demerol] Allergy (Verified 04/06/18 15:20) morphine Allergy (Verified 02/16/21 21:32) penicillin V Allergy (Verified 04/06/18 15:20) tape Allergy (Uncoded 04/07/18 00:59) - Review of Systems ROS: No change since H&P - Vital Signs and I&O's Vital Signs: Temperature 98.3 F Pulse Rate [Bilateral Radial] 99 Pulse Rate 113 Respiratory Rate 22 Blood Pressure [Right Arm] 118/67 Blood Pressure 105/58 O2 Sat by Pulse Oximetry 100 Intake and Output: Intake & Output 02/25/21 02/26/21 02/27/21 02/28/21 11:59 11:59 11:59 11:59 Intake Total 3725 / 3725 752 / 752 Balance 3725 / 3725 752 / 752 - Physical Exam Oriented: Normal Eyes: Normal Ear: Normal Nose: Normal Throat: Normal Respiratory: Diminished Cardiovascular: Normal. negative: Edema : Normal Auscultation: Bowel Sounds: Normal Tenderness: RUQ, LUQ, Epigastric Skin: Decreased Turgur Musculoskeletal: Right Psychiatric: Anxiety Affect: Anxious Speech Pattern: Clear, Appropriate - Laboratory and Diagnostics Result Diagrams: 02/27/21 04:21 02/27/21 17:49 Labs: Laboratory WBC 18.9 X10^3/uL (3.6-10.0) H 02/27/21 04:21 RBC 4.20 X10^6/uL (3.5-5.4) 02/27/21 04:21 Hgb 9.0 g/dL (12.0-16.0) L 02/27/21 04:21 Hct 29.0 % (36.0-47.0) L 02/27/21 04:21 MCV 69.0 fL (80.0-100.0) L 02/27/21 04:21 MCH 21.4 pg (27.0-34.0) L 02/27/21 04:21 MCHC 31.0 g/dL (33.0-35.0) L 02/27/21 04:21 RDW 19.0 % (11.6-16.5) H 02/27/21 04:21 Plt Count 620 X10^3/uL (150.0-450.0) H 02/27/21 04:21 Plt Count Comment Increased (ADEQUATE) A 02/27/21 04:21 MPV 7.5 fL (7.4-11.0) 02/27/21 04:21 Neut % (Auto) 78.2 % (42.0-75.0) H 02/27/21 04:21 Lymph % (Auto) 7.7 % (21.0-51.0) L 02/27/21 04:21 [place] % (Auto) 13.8 % (0.0-13.0) H 02/27/21 04:21 Eos % (Auto) 0.0 % (0.9-2.9) L 02/27/21 04:21 Baso % (Auto) 0.3 % (0.2-1.0) 02/27/21 04:21 Neut # (Auto) 14.7 x10^3/uL (2.2-4.8) H 02/27/21 04:21 Lymph # (Auto) 1.5 X10^3/uL (1.3-2.9) 02/27/21 04:21 [place] # (Auto) 2.6 x10^3/uL (0.3-0.8) H 02/27/21 04:21 Eos # (Auto) 0.0 x10^3/uL (0.0-0.2) 02/27/21 04:21 Baso # (Auto) 0.1 X10^3/uL (0.0-0.1) 02/27/21 04:21 Absolute Nucleated RBC 0.0 /100WBC 02/27/21 04:21 Total Counted 100 02/26/21 14:21 Neutrophils % (Manual) 73 % (39-76) 02/26/21 14:21 Band Neutrophils % 4 % (0-10) 02/26/21 14:21 Lymphocytes % (Manual) 15 % (13-43) 02/26/21 14:21 Monocytes % (Manual) 8 % (4-9) 02/26/21 14:21 Giant Platelets Rare 02/26/21 14:21 Plt Morphology Comment Normal (NORMAL) 02/27/21 04:21 RBC Morphology Abnormal (NORMAL) A 02/27/21 04:21 Polychromasia 1+ 02/26/21 14:21 Hypochromasia 2+ A 02/27/21 04:21 Microcytosis 1+ A 02/27/21 04:21 Ovalocytes Present 02/27/21 04:21 Adriana Cells Present 02/27/21 04:21 PT 13.7 SECONDS (11.8-14.3) 02/26/21 14:21 INR Target Range - 02/26/21 14:21 INR 1.10 (0.8-1.3) 02/26/21 14:21 Sample Site Lrad 02/27/21 07:46 ABG pH 7.240 (7.35-7.45) L 02/27/21 07:46 ABG pCO2 32.0 mmHg (35.0-45.0) L 02/27/21 07:46 ABG pO2 28.0 mmHg (80.0-100.0) L* 02/27/21 07:46 ABG HCO3 13.7 mmol/L (22-26) L* 02/27/21 07:46 ABG O2 Saturation 40.0 % (90-100) L* 02/27/21 07:46 ABG Base Excess -12.5 mmol/L (-2.0-2.0) L 02/27/21 07:46 Kristopher Test Pos 02/27/21 07:46 A-a Gradient 82.0 mmHg 02/27/21 07:46 FiO2 21.0 02/27/21 07:46 Blood Gas Comments Pt td well elj cdn 02/27/21 07:46 Sodium 136 mmol/L (136-145) 02/27/21 17:49 Corrected Sodium TNP 02/27/21 17:49 Potassium 3.0 mmol/L (3.5-5.1) L* 02/27/21 17:49 Chloride 103 mmol/L (98-107) 02/27/21 17:49 Carbon Dioxide 17.6 mmol/L (21-32) L 02/27/21 17:49 BUN 5 mg/dL (7-18) L 02/27/21 17:49 Creatinine 0.95 mg/dL (0.55-1.02) 02/27/21 17:49 Est GFR (MDRD) Af Amer > 60 (>60) 02/27/21 17:49 Est GFR (MDRD) Non-Af > 60 (>60) 02/27/21 17:49 Glucose 107 mg/dL (65-99) H 02/27/21 17:49 POC Glucose (mg/dL) 114 mg/dL (65-99) H 02/27/21 17:44 Lactic Acid 1.1 mmol/L (0.4-2.0) 02/26/21 19:17 Calcium 8.3 mg/dL (8.5-10.1) L 02/27/21 17:49 Corrected Calcium 9.2 mg/dL (8.5-10.1) 02/27/21 04:21 Total Bilirubin 0.30 mg/dL (0.2-1.0) 02/27/21 04:21 AST 16 Units/L (15-37) 02/27/21 04:21 ALT 44 Units/L (12-78) 02/27/21 04:21 Alkaline Phosphatase 150 Units/L (46-116) H 02/27/21 04:21 Creatine Kinase 30 Units/L (26-192) 02/26/21 21:34 CK-MB (CK-2) < 1.0 ng/mL (0-4.0) 02/26/21 21:34 CK/CKMB % Calc 3.3 % (<4) 02/26/21 21:34 Troponin I < 0.02 ng/mL (0-1.5) 02/26/21 21:34 Total Protein 5.8 g/dL (6.4-8.2) L 02/27/21 04:21 Albumin 2.6 g/dL (3.4-5.0) L 02/27/21 04:21 Globulin 3.2 g/dL (2.5-4.5) 02/27/21 04:21 Albumin/Globulin Ratio 0.8 Ratio (1.1-2.1) L 02/27/21 04:21 Amylase 245 Units/L (25-115) H 02/27/21 04:21 Lipase 895 Units/L (73-393) H 02/27/21 04:21 Specimen Type Clean catch urine 02/26/21 20:26 Urine Color Yellow (YELLOW) 02/26/21 20: Urine Appearance Clear (CLEAR) 02/26/21 20: Urine pH 5.0 (5.0 - 8.0) 02/26/21 20: Ur Specific [place] 1.020 (1.000-1.030) 02/26/21 20: Urine Protein 2+ (NEGATIVE) 02/26/21 20: Urine Glucose (UA) 4+ (NEGATIVE) 02/26/21 20: Urine Ketones 4+ (NEGATIVE) 02/26/21 20: Urine Occult Blood 5+ (NEGATIVE) 02/26/21 20: Urine Nitrite Negative (NEGATIVE) 02/26/21 20: Urine Bilirubin Negative (NEGATIVE) 02/26/21 20: Urine Acetone Large (NEGATIVE) H 02/27/21 04:06 Urine Urobilinogen Normal (NORMAL) 02/26/21 20:26 Ur Leukocyte Esterase Negative (NEGATIVE) 02/26/21 20: Urine RBC 3-5 /HPF (0-3) A 02/26/21 20: Urine WBC 5-10 /HPF (0-5) A 02/26/21 20:26 Ur Squamous Epith Cells Few /HPF (NEGATIVE) 02/26/21 20:26 Urine Bacteria Trace /HPF (NEGATIVE) 02/26/21 20:26 Ur Culture Indicated? No/not indicated 09/15/21 20:26 Acetone, Semi-Quant Small (NEGATIVE) H 02/27/21 04:21 SARS-CoV-2 (PCR) Negative (NEGATIVE) 02/26/21 16:20 Influenza Type A (PCR) Negative (NEGATIVE) 02/26/21 16:20 Influenza Type B (PCR) Negative (NEGATIVE) 02/26/21 16:20 RSV (PCR) Negative (NEGATIVE) 02/26/21 16:20 - Plan (1) DKA (diabetic ketoacidosis) Status: Acute Qualifiers: Diabetes mellitus type: other specified (including SUNIL) Diabetes mellitus complication detail: without coma Qualified Code(s): E13.10 - Other specified diabetes mellitus with ketoacidosis without coma Plan: ICU. INSULIN DRIP WITH GLUCOSE CHECKS PER PROTOCOL, COVID 19 SWAB ON ADMISSION. BC AND UC, IV HYDRATION, STRICT I&OS. ABG, RESP CONSULT. EKG ON ADMISSION, ACETONE, SERIAL BMP, LACTIC ACID LEVEL. CT ABD PELVIS, PAIN AND NAUSEA CONTROL (2) GERD (gastroesophageal reflux disease) Status: Acute (3) Acute pancreatitis Status: Acute Qualifiers: Pancreatitis type: unspecified pancreatitis type Acute pancreatitis complication: unspecified Qualified Code(s): K85.90 - Acute pancreatitis without necrosis or infection, unspecified (4) Esophagitis Status: Acute
[2021-02-27 22:11] LABS: BLOOD UREA NITROGEN 4 mg/dL (7-18); CARBON DIOXIDE 21.7 mmol/L (21-32); CHLORIDE 103 mmol/L (98-107); CREATININE 0.87 mg/dL (0.55-1.02); SODIUM 135 mmol/L (136-145); eGFR NON BLACK RACES > 60 (>60)
[2021-02-27] MEDS ORDERED: MAGNESIUM SULFATE 1 GRAM/100 mL PREMIX 2 G/200 ML BAG IV ONE (23:26)
[2021-02-27] MEDS: MAGNESIUM SULFATE 1 GRAM/100 mL PREMIX 1 GM/100 ML BAG IV PRN (23:37)
[2021-02-28] MEDS: MILK OF MAGNESIA PO SCH ×3 (00:20→21:13)
[2021-02-28] MEDS: NEURONTIN CAP 300 MG PO SCH ×2 (00:20→21:14)
[2021-02-28] MEDS: COLACE CAP 100 MG PO SCH ×3 (00:20→21:09)
[2021-02-28] MEDS: PROTONIX TAB 40 MG PO SCH ×3 (00:23→21:09)
[2021-02-28] MEDS: MAGNESIUM SULFATE 1 GRAM/100 mL PREMIX 1 GM/100 ML BAG IV PRN (01:02)
[2021-02-28] MEDS: K-RIDER 10 MEQ/NS 100 ML 10 MEQ/100 ML BAG IV PRN ×6 (02:21→12:30)
[2021-02-28] MEDS ORDERED: [UNRECOGNIZED DRUG - OTHER] IV ONE (04:24)
[2021-02-28] MEDS ORDERED: K RIDER IV ONE (04:24)
[2021-02-28] MEDS: DILAUDID INJ IVP PRN ×2 (04:50→10:30)
[2021-02-28] MEDS: FERROUS GLUCONATE PO SCH ×2 (05:59→16:00)
[2021-02-28] MEDS: ZOFRAN INJ 4 MG VIAL IVP PRN ×2 (06:28→15:30)
--- NOTE | 2021-02-28 06:34 | RAD ---
HISTORYTACHYPNEASTUDYCHEST, 1 [id number]/15/2021.TECHNIQUEAP view of the chestFINDINGSThe cardiac and mediastinal contours are within normal limits. The lungs are clear without focal consolidation or segmental collapse. No pleural effusion or pneumothorax. Likely chronic right lateral 6th rib fracture.IMPRESSIONNo acute pulmonary process.Electronically signed by: Carlos Mauricio (Feb 28, 2021 06:32:12)
[2021-02-28 07:17] LABS: BASOPHILS # (AUTO) 0.1 X10^3/uL (0.0-0.1); BASOPHILS % (AUTO) 0.7 % (0.2-1.0); EOSINOPHILS # (AUTO) 0.1 x10^3/uL (0.0-0.2); EOSINOPHILS % (AUTO) 0.9 % (0.9-2.9); HEMATOCRIT 25.2 % (36.0-47.0); HEMOGLOBIN 8.3 g/dL (12.0-16.0); LYMPHOCYTES # (AUTO) 2.1 X10^3/uL (1.3-2.9); MEAN CORPUSCULAR HEMOGLOBIN 21.9 pg (27.0-34.0); MEAN CORPUSCULAR HGB CONC 32.9 g/dL (33.0-35.0); MEAN CORPUSCULAR VOLUME 66.7 fL (80.0-100.0); MEAN PLATELET VOLUME 7.8 fL (7.4-11.0); MONOCYTES # (AUTO) 1.4 x10^3/uL (0.3-0.8); MONOCYTES % (AUTO) 13.6 % (0.0-13.0); NEUTROPHILS # (AUTO) 6.7 x10^3/uL (2.2-4.8); NEUTROPHILS % (AUTO) 64.8 % (42.0-75.0); PLATELET COUNT 503 X10^3/uL (150.0-450.0); RED BLOOD COUNT 3.77 X10^6/uL (3.5-5.4); RED CELL DISTRIBUTION WIDTH 18.8 % (11.6-16.5); WHITE BLOOD COUNT 10.4 X10^3/uL (3.6-10.0)
[2021-02-28 07:23] LABS: ALANINE AMINOTRANSFERASE 35 Units/L (12-78); ALBUMIN 2.3 g/dL (3.4-5.0); ALKALINE PHOSPHATASE 135 Units/L (46-116); ASPARTATE AMINO TRANSFERASE 14 Units/L (15-37); BLOOD UREA NITROGEN 3 mg/dL (7-18); CALCIUM 7.9 mg/dL (8.5-10.1); CARBON DIOXIDE 22.4 mmol/L (21-32); CHLORIDE 103 mmol/L (98-107); COR CA(FOR HYPOALB) 9.3 mg/dL (8.5-10.1); SODIUM 135 mmol/L (136-145); TOTAL PROTEIN 5.4 g/dL (6.4-8.2); eGFR NON BLACK RACES > 60 (>60)
[2021-02-28 07:32] LABS: SERUM ACETONE SMALL (NEGATIVE)
[2021-02-28 07:39] LABS: AMYLASE 127 Units/L (25-115); LIPASE 586 Units/L (73-393)
[2021-02-28 07:52] LABS: ANISOCYTOSIS SLIGHT; BURR CELLS SLIGHT; HYPOCHROMASIA 2+; MICROCYTOSIS 1+; OVALOCYTES 1+; PLATELET MORPHOLOGY COMMENT NORMAL (NORMAL)
[2021-02-28 07:53] LABS: SCHISTOCYTES SLIGHT
[2021-02-28] MEDS ORDERED: DONNATAL TAB PO ONE (07:53)
[2021-02-28] MEDS ORDERED: INVANZ INJ 1 GM VIAL 1 GM in NS 100 ML IV + SPIKE MINIBAG* 100 ML IV SCH (09:00)
[2021-02-28] MEDS: MICRO K EXTEN CAP 10 MEQ PO SCH (10:02)
[2021-02-28] MEDS: HumuLIN R SUBCUT PRN ×2 (13:00→17:30)
[2021-02-28] MEDS: FOLIC ACID TAB 1 MG PO SCH (15:00)
[2021-02-28] MEDS: DONNATAL TAB PO SCH ×2 (15:02→22:10)
[2021-02-28] MEDS: INVANZ INJ 1 GM VIAL 1 GM in NS 50 ML IV + SPIKE MINIBAG* 50 ML IV SCH (16:23)
[2021-02-28] MEDS ORDERED: SNACK - Diabetic Appropriate PO SCH (20:00)
[2021-03-01] MEDS: DONNATAL TAB PO SCH ×3 (05:52→21:14)
[2021-03-01] MEDS: HumuLIN R SUBCUT PRN (05:54)
[2021-03-01] MEDS: FERROUS GLUCONATE PO SCH ×2 (06:07→16:43)
[2021-03-01 06:17] LABS: BASOPHILS % (AUTO) 0.3 % (0.2-1.0); EOSINOPHILS % (AUTO) 0.5 % (0.9-2.9); HEMATOCRIT 27.9 % (36.0-47.0); HEMOGLOBIN 8.7 g/dL (12.0-16.0); LYMPHOCYTES # (AUTO) 1.8 X10^3/uL (1.3-2.9); LYMPHOCYTES % (AUTO) 19.7 % (21.0-51.0); MEAN CORPUSCULAR HEMOGLOBIN 21.3 pg (27.0-34.0); MEAN CORPUSCULAR VOLUME 68.6 fL (80.0-100.0); MEAN PLATELET VOLUME 7.8 fL (7.4-11.0); MONOCYTES # (AUTO) 1.2 x10^3/uL (0.3-0.8); MONOCYTES % (AUTO) 12.8 % (0.0-13.0); NEUTROPHILS # (AUTO) 6.1 x10^3/uL (2.2-4.8); NEUTROPHILS % (AUTO) 66.7 % (42.0-75.0); PLATELET COUNT 510 X10^3/uL (150.0-450.0); RED BLOOD COUNT 4.07 X10^6/uL (3.5-5.4); RED CELL DISTRIBUTION WIDTH 19.1 % (11.6-16.5); WHITE BLOOD COUNT 9.2 X10^3/uL (3.6-10.0)
[2021-03-01 06:29] LABS: ALANINE AMINOTRANSFERASE 32 Units/L (12-78); ALBUMIN 2.5 g/dL (3.4-5.0); ALKALINE PHOSPHATASE 151 Units/L (46-116); ASPARTATE AMINO TRANSFERASE 14 Units/L (15-37); BLOOD UREA NITROGEN 4 mg/dL (7-18); CALCIUM 8.2 mg/dL (8.5-10.1); CARBON DIOXIDE 19.2 mmol/L (21-32); CHLORIDE 97 mmol/L (98-107); COR CA(FOR HYPOALB) 9.4 mg/dL (8.5-10.1); COR NA(FOR HYPERGLY) 140 mmol/L (136-145); CREATININE 0.77 mg/dL (0.55-1.02); SODIUM 132 mmol/L (136-145); TOTAL PROTEIN 5.9 g/dL (6.4-8.2); eGFR NON BLACK RACES > 60 (>60)
[2021-03-01 07:16] LABS: HYPOCHROMASIA SLIGHT; PLATELET MORPHOLOGY COMMENT NORMAL (NORMAL)
[2021-03-01 07:17] LABS: ANISOCYTOSIS 1+; MICROCYTOSIS 1+; OVALOCYTES PRESENT; POIKILOCYTOSIS SLIGHT; TARGET CELLS PRESENT
[2021-03-01] MEDS: INVANZ INJ 1 GM VIAL 1 GM in NS 50 ML IV + SPIKE MINIBAG* 50 ML IV SCH (08:51)
[2021-03-01] MEDS: COLACE CAP 100 MG PO SCH ×2 (08:51→20:16)
[2021-03-01] MEDS: FOLIC ACID TAB 1 MG PO SCH (08:52)
[2021-03-01] MEDS: MICRO K EXTEN CAP 10 MEQ PO SCH (08:52)
[2021-03-01] MEDS: PROTONIX TAB 40 MG PO SCH ×2 (08:53→20:16)
[2021-03-01] MEDS: MILK OF MAGNESIA PO SCH ×2 (08:53→20:17)
[2021-03-01] MEDS: DILAUDID INJ IVP PRN ×2 (13:29→20:15)
[2021-03-01] MEDS: ZOFRAN INJ 4 MG VIAL IVP PRN ×2 (13:30→22:20)
[2021-03-01] MEDS ORDERED: HumuLIN R SUBCUT ONE (17:27)
[2021-03-01] MEDS: SNACK - Diabetic Appropriate PO SCH (20:16)
[2021-03-01] MEDS: MIRALAX POWDER (1 DOSE 17 G) PO SCH (20:16)
[2021-03-01] MEDS: NEURONTIN CAP 300 MG PO SCH (20:16)
[2021-03-02] MEDS: DILAUDID INJ IVP PRN ×3 (04:50→18:16)
[2021-03-02] MEDS: DONNATAL TAB PO SCH ×3 (05:44→21:14)
[2021-03-02] MEDS: HumuLIN R SUBCUT PRN ×2 (05:48→16:58)
[2021-03-02] MEDS: FERROUS GLUCONATE PO SCH ×2 (06:00→16:51)
[2021-03-02 06:17] LABS: BASOPHILS # (AUTO) 0.1 X10^3/uL (0.0-0.1); BASOPHILS % (AUTO) 0.8 % (0.2-1.0); EOSINOPHILS # (AUTO) 0.1 x10^3/uL (0.0-0.2); EOSINOPHILS % (AUTO) 1.9 % (0.9-2.9); HEMATOCRIT 29.6 % (36.0-47.0); HEMOGLOBIN 9.2 g/dL (12.0-16.0); LYMPHOCYTES # (AUTO) 2.1 X10^3/uL (1.3-2.9); LYMPHOCYTES % (AUTO) 32.5 % (21.0-51.0); MEAN CORPUSCULAR HEMOGLOBIN 21.6 pg (27.0-34.0); MEAN CORPUSCULAR VOLUME 69.7 fL (80.0-100.0); MEAN PLATELET VOLUME 8.3 fL (7.4-11.0); MONOCYTES # (AUTO) 0.7 x10^3/uL (0.3-0.8); MONOCYTES % (AUTO) 11.1 % (0.0-13.0); NEUTROPHILS # (AUTO) 3.5 x10^3/uL (2.2-4.8); NEUTROPHILS % (AUTO) 53.7 % (42.0-75.0); PLATELET COUNT 519 X10^3/uL (150.0-450.0); RED BLOOD COUNT 4.25 X10^6/uL (3.5-5.4); WHITE BLOOD COUNT 6.6 X10^3/uL (3.6-10.0)
[2021-03-02 06:26] LABS: ALANINE AMINOTRANSFERASE 26 Units/L (12-78); ALBUMIN 2.4 g/dL (3.4-5.0); ALKALINE PHOSPHATASE 152 Units/L (46-116); AMYLASE 100 Units/L (25-115); ASPARTATE AMINO TRANSFERASE 12 Units/L (15-37); BLOOD UREA NITROGEN 3 mg/dL (7-18); CALCIUM 8.2 mg/dL (8.5-10.1); CARBON DIOXIDE 17.2 mmol/L (21-32); CHLORIDE 96 mmol/L (98-107); COR CA(FOR HYPOALB) 9.5 mg/dL (8.5-10.1); COR NA(FOR HYPERGLY) 138 mmol/L (136-145); CREATININE 0.78 mg/dL (0.55-1.02); LIPASE 767 Units/L (73-393); SODIUM 131 mmol/L (136-145); TOTAL PROTEIN 5.9 g/dL (6.4-8.2); eGFR NON BLACK RACES > 60 (>60)
[2021-03-02 07:10] LABS: ANISOCYTOSIS 1+; PLATELET MORPHOLOGY COMMENT NORMAL (NORMAL); POIKILOCYTOSIS 1+
[2021-03-02 07:11] LABS: BURR CELLS 1+; MICROCYTOSIS 1+; OVALOCYTES PRESENT
[2021-03-02 07:12] LABS: HYPOCHROMASIA 2+; SCHISTOCYTES PRESENT
[2021-03-02] MEDS: INVANZ INJ 1 GM VIAL 1 GM in NS 50 ML IV + SPIKE MINIBAG* 50 ML IV SCH (09:03)
[2021-03-02] MEDS: FOLIC ACID TAB 1 MG PO SCH (09:03)
[2021-03-02] MEDS: COLACE CAP 100 MG PO SCH ×2 (09:03→21:13)
[2021-03-02] MEDS: PROTONIX TAB 40 MG PO SCH ×2 (09:04→21:14)
[2021-03-02] MEDS: MILK OF MAGNESIA PO SCH ×2 (09:04→21:13)
[2021-03-02] MEDS: MICRO K EXTEN CAP 10 MEQ PO SCH (09:04)
[2021-03-02] MEDS: ZOFRAN INJ 4 MG VIAL IVP PRN (12:01)
[2021-03-02] MEDS ORDERED: LEVSIN/MAALOX/LIDOC VISC PO PRN (14:10)
[2021-03-02] MEDS: ACTOS PO SCH (15:28)
[2021-03-02] MEDS: NS + KCL 20 MEQ/L 1,000 ML IV SCH (15:28)
[2021-03-02] MEDS: REGLAN TAB 10 MG PO SCH ×2 (16:50→21:14)
[2021-03-02] MEDS: SNACK - Diabetic Appropriate PO SCH (19:56)
[2021-03-02] MEDS: MIRALAX POWDER (1 DOSE 17 G) PO SCH (21:13)
[2021-03-02] MEDS: NEURONTIN CAP 300 MG PO SCH (21:13)
[2021-03-02] MEDS: GLUCOPHAGE XR 24-HR PO SCH (21:13)
[2021-03-03] MEDS: DILAUDID INJ IVP PRN ×3 (00:30→14:03)
[2021-03-03] MEDS: ZOFRAN INJ 4 MG VIAL IVP PRN ×2 (00:31→11:23)
[2021-03-03] MEDS: NS + KCL 20 MEQ/L 1,000 ML IV SCH ×2 (04:40→17:08)
[2021-03-03 05:30] LABS: BASOPHILS # (AUTO) 0.3 X10^3/uL (0.0-0.1); BASOPHILS % (AUTO) 4.2 % (0.2-1.0); EOSINOPHILS # (AUTO) 0.1 x10^3/uL (0.0-0.2); EOSINOPHILS % (AUTO) 1.2 % (0.9-2.9); HEMATOCRIT 31.4 % (36.0-47.0); HEMOGLOBIN 9.6 g/dL (12.0-16.0); LYMPHOCYTES % (AUTO) 26.8 % (21.0-51.0); MEAN CORPUSCULAR HEMOGLOBIN 21.7 pg (27.0-34.0); MEAN CORPUSCULAR HGB CONC 30.7 g/dL (33.0-35.0); MEAN CORPUSCULAR VOLUME 70.5 fL (80.0-100.0); MEAN PLATELET VOLUME 8.5 fL (7.4-11.0); MONOCYTES # (AUTO) 0.8 x10^3/uL (0.3-0.8); MONOCYTES % (AUTO) 10.5 % (0.0-13.0); NEUTROPHILS # (AUTO) 4.2 x10^3/uL (2.2-4.8); NEUTROPHILS % (AUTO) 57.3 % (42.0-75.0); PLATELET COUNT 515 X10^3/uL (150.0-450.0); RED BLOOD COUNT 4.45 X10^6/uL (3.5-5.4); RED CELL DISTRIBUTION WIDTH 19.8 % (11.6-16.5); WHITE BLOOD COUNT 7.3 X10^3/uL (3.6-10.0)
[2021-03-03 05:45] LABS: ALANINE AMINOTRANSFERASE 23 Units/L (12-78); ALBUMIN 2.6 g/dL (3.4-5.0); ALKALINE PHOSPHATASE 163 Units/L (46-116); ASPARTATE AMINO TRANSFERASE 12 Units/L (15-37); BLOOD UREA NITROGEN 5 mg/dL (7-18); CALCIUM 8.5 mg/dL (8.5-10.1); CARBON DIOXIDE 17.1 mmol/L (21-32); CHLORIDE 96 mmol/L (98-107); COR CA(FOR HYPOALB) 9.6 mg/dL (8.5-10.1); COR NA(FOR HYPERGLY) 142 mmol/L (136-145); CREATININE 0.92 mg/dL (0.55-1.02); LIPASE 936 Units/L (73-393); SODIUM 132 mmol/L (136-145); TOTAL PROTEIN 6.3 g/dL (6.4-8.2); eGFR NON BLACK RACES > 60 (>60)
[2021-03-03] MEDS: DONNATAL TAB PO SCH ×3 (05:45→21:17)
[2021-03-03] MEDS: REGLAN TAB 10 MG PO SCH ×4 (05:47→21:17)
[2021-03-03] MEDS: HumuLIN R SUBCUT PRN ×3 (05:47→21:18)
[2021-03-03 06:08] LABS: ANISOCYTOSIS SLIGHT; BURR CELLS 1+; HYPOCHROMASIA SLIGHT; MICROCYTOSIS SLIGHT; OVALOCYTES FEW; PLATELET MORPHOLOGY COMMENT NORMAL (NORMAL); SCHISTOCYTES FEW
[2021-03-03] MEDS: FERROUS GLUCONATE PO SCH ×2 (06:49→17:08)
[2021-03-03] MEDS: ACTOS PO SCH (10:08)
[2021-03-03] MEDS: GLUCOPHAGE XR 24-HR PO SCH (10:08)
[2021-03-03] MEDS: MICRO K EXTEN CAP 10 MEQ PO SCH (10:09)
[2021-03-03] MEDS: FOLIC ACID TAB 1 MG PO SCH (10:09)
[2021-03-03] MEDS: COLACE CAP 100 MG PO SCH ×2 (10:09→21:15)
[2021-03-03] MEDS: PROTONIX TAB 40 MG PO SCH ×2 (10:09→21:17)
[2021-03-03] MEDS: MILK OF MAGNESIA PO SCH ×2 (10:11→21:16)
[2021-03-03] MEDS: INVANZ INJ 1 GM VIAL 1 GM in NS 50 ML IV + SPIKE MINIBAG* 50 ML IV SCH (10:11)
[2021-03-03] MEDS ORDERED: NS 1000 ML 1,000 ML IV ONE (17:42)
[2021-03-03] MEDS ORDERED: LANTUS SC SCH (18:00)
[2021-03-03] MEDS ORDERED: SNACK - Diabetic Appropriate PO SCH (20:00)
[2021-03-03] MEDS: SNACK - Diabetic Appropriate PO SCH (21:13)
[2021-03-03] MEDS: LANTUS SC SCH (21:15)
[2021-03-03] MEDS: MIRALAX POWDER (1 DOSE 17 G) PO SCH (21:16)
[2021-03-03] MEDS: NEURONTIN CAP 300 MG PO SCH (21:16)
[2021-03-03] MEDS: PERCOCET TAB 5/325 MG PO PRN (21:18)
[2021-03-03 22:12] LABS: BLOOD UREA NITROGEN 4 mg/dL (7-18); CALCIUM 8.3 mg/dL (8.5-10.1); CARBON DIOXIDE 21.1 mmol/L (21-32); CHLORIDE 97 mmol/L (98-107); COR NA(FOR HYPERGLY) 135 mmol/L (136-145); CREATININE 0.85 mg/dL (0.55-1.02); SODIUM 130 mmol/L (136-145); eGFR NON BLACK RACES > 60 (>60)
[2021-03-04] MEDS: HumuLIN R SUBCUT PRN ×4 (05:54→20:59)
[2021-03-04] MEDS: REGLAN TAB 10 MG PO SCH ×4 (05:55→20:46)
[2021-03-04] MEDS: DONNATAL TAB PO SCH ×3 (05:55→20:59)
[2021-03-04 06:49] LABS: BASOPHILS # (AUTO) 0.1 X10^3/uL (0.0-0.1); BASOPHILS % (AUTO) 1.5 % (0.2-1.0); EOSINOPHILS # (AUTO) 0.1 x10^3/uL (0.0-0.2); EOSINOPHILS % (AUTO) 2.3 % (0.9-2.9); HEMATOCRIT 29.4 % (36.0-47.0); HEMOGLOBIN 9.3 g/dL (12.0-16.0); LYMPHOCYTES # (AUTO) 2.2 X10^3/uL (1.3-2.9); LYMPHOCYTES % (AUTO) 35.9 % (21.0-51.0); MEAN CORPUSCULAR HEMOGLOBIN 21.7 pg (27.0-34.0); MEAN CORPUSCULAR HGB CONC 31.8 g/dL (33.0-35.0); MEAN CORPUSCULAR VOLUME 68.1 fL (80.0-100.0); MEAN PLATELET VOLUME 8.4 fL (7.4-11.0); MONOCYTES # (AUTO) 0.7 x10^3/uL (0.3-0.8); MONOCYTES % (AUTO) 10.8 % (0.0-13.0); NEUTROPHILS # (AUTO) 3.1 x10^3/uL (2.2-4.8); NEUTROPHILS % (AUTO) 49.5 % (42.0-75.0); PLATELET COUNT 555 X10^3/uL (150.0-450.0); RED BLOOD COUNT 4.31 X10^6/uL (3.5-5.4); RED CELL DISTRIBUTION WIDTH 19.5 % (11.6-16.5); WHITE BLOOD COUNT 6.2 X10^3/uL (3.6-10.0)
[2021-03-04 06:55] LABS: AMYLASE 114 Units/L (25-115); LIPASE 1201 Units/L (73-393)
[2021-03-04 06:56] LABS: SERUM ACETONE SMALL (NEGATIVE)
[2021-03-04 07:30] LABS: PLATELET MORPHOLOGY COMMENT NORMAL (NORMAL)
[2021-03-04 07:31] LABS: ANISOCYTOSIS 1+; HYPOCHROMASIA 2+; MICROCYTOSIS 1+; POIKILOCYTOSIS 1+
[2021-03-04 07:32] LABS: BURR CELLS SLIGHT; OVALOCYTES PRESENT; SCHISTOCYTES SLIGHT
[2021-03-04] MEDS ORDERED: NS 1000 ML 1,000 ML IV ONE (08:17)
[2021-03-04] MEDS ORDERED: NS 1000 ML 1,000 ML ONE (08:53)
[2021-03-04] MEDS: MICRO K EXTEN CAP 10 MEQ PO SCH (10:20)
[2021-03-04] MEDS: PROTONIX TAB 40 MG PO SCH ×2 (10:20→20:45)
[2021-03-04] MEDS: INVANZ INJ 1 GM VIAL 1 GM in NS 50 ML IV + SPIKE MINIBAG* 50 ML IV SCH (10:20)
[2021-03-04] MEDS: FERROUS GLUCONATE PO SCH ×2 (10:20→16:45)
[2021-03-04] MEDS: FOLIC ACID TAB 1 MG PO SCH (10:20)
[2021-03-04] MEDS: COLACE CAP 100 MG PO SCH ×2 (10:20→20:44)
[2021-03-04] MEDS ORDERED: MAALOX or MYLANTA PO PRN (10:22)
[2021-03-04] MEDS: MILK OF MAGNESIA PO SCH ×2 (10:32→20:45)
[2021-03-04] MEDS: MAALOX or MYLANTA PO SCH ×4 (10:57→20:45)
[2021-03-04] MEDS ORDERED: MAALOX or MYLANTA PO SCH (11:30)
[2021-03-04] MEDS: PERCOCET TAB 5/325 MG PO PRN (11:48)
[2021-03-04] MEDS: NS 1000 ML 1,000 ML IV SCH (13:04)
[2021-03-04] MEDS ORDERED: MAALOX or MYLANTA ONE (16:45)
[2021-03-04] MEDS: ZOFRAN INJ 4 MG VIAL IVP PRN (17:42)
[2021-03-04] MEDS: SNACK - Diabetic Appropriate PO SCH (20:13)
[2021-03-04] MEDS: NEURONTIN CAP 300 MG PO SCH (20:45)
[2021-03-04] MEDS: MIRALAX POWDER (1 DOSE 17 G) PO SCH (20:45)
[2021-03-04] MEDS: LANTUS SC SCH (20:58)
[2021-03-05] MEDS: NS 1000 ML 1,000 ML IV SCH (05:45)
[2021-03-05] MEDS: DONNATAL TAB PO SCH (05:45)
[2021-03-05] MEDS: HumuLIN R SUBCUT PRN (05:46)
[2021-03-05] MEDS: REGLAN TAB 10 MG PO SCH ×2 (05:46→12:09)
[2021-03-05 06:14] LABS: BASOPHILS # (AUTO) 0.1 X10^3/uL (0.0-0.1); BASOPHILS % (AUTO) 1.6 % (0.2-1.0); EOSINOPHILS # (AUTO) 0.1 x10^3/uL (0.0-0.2); EOSINOPHILS % (AUTO) 1.8 % (0.9-2.9); HEMATOCRIT 30.9 % (36.0-47.0); HEMOGLOBIN 9.8 g/dL (12.0-16.0); LYMPHOCYTES % (AUTO) 35.7 % (21.0-51.0); MEAN CORPUSCULAR HEMOGLOBIN 21.8 pg (27.0-34.0); MEAN CORPUSCULAR HGB CONC 31.7 g/dL (33.0-35.0); MEAN CORPUSCULAR VOLUME 68.7 fL (80.0-100.0); MEAN PLATELET VOLUME 8.2 fL (7.4-11.0); MONOCYTES # (AUTO) 0.8 x10^3/uL (0.3-0.8); MONOCYTES % (AUTO) 14.2 % (0.0-13.0); NEUTROPHILS # (AUTO) 2.6 x10^3/uL (2.2-4.8); NEUTROPHILS % (AUTO) 46.7 % (42.0-75.0); PLATELET COUNT 517 X10^3/uL (150.0-450.0); RED BLOOD COUNT 4.49 X10^6/uL (3.5-5.4); RED CELL DISTRIBUTION WIDTH 19.3 % (11.6-16.5); WHITE BLOOD COUNT 5.5 X10^3/uL (3.6-10.0)
[2021-03-05 06:43] LABS: ALANINE AMINOTRANSFERASE 19 Units/L (12-78); ALBUMIN 2.5 g/dL (3.4-5.0); ALKALINE PHOSPHATASE 138 Units/L (46-116); ASPARTATE AMINO TRANSFERASE 15 Units/L (15-37); BLOOD UREA NITROGEN 3 mg/dL (7-18); CALCIUM 8.7 mg/dL (8.5-10.1); CARBON DIOXIDE 25.6 mmol/L (21-32); CHLORIDE 100 mmol/L (98-107); COR CA(FOR HYPOALB) 9.9 mg/dL (8.5-10.1); COR NA(FOR HYPERGLY) 139 mmol/L (136-145); CREATININE 0.69 mg/dL (0.55-1.02); SODIUM 136 mmol/L (136-145); TOTAL PROTEIN 6.3 g/dL (6.4-8.2); eGFR NON BLACK RACES > 60 (>60)
[2021-03-05 06:54] LABS: ANISOCYTOSIS SLIGHT; BURR CELLS SLIGHT; HYPOCHROMASIA 2+; MICROCYTOSIS 1+; OVALOCYTES PRESENT; PLATELET MORPHOLOGY COMMENT NORMAL (NORMAL); POIKILOCYTOSIS 1+; SCHISTOCYTES SLIGHT
[2021-03-05 08:05] VITALS: BP 123/63
[2021-03-05] MEDS: FERROUS GLUCONATE PO SCH (09:38)
[2021-03-05] MEDS: INVANZ INJ 1 GM VIAL 1 GM in NS 50 ML IV + SPIKE MINIBAG* 50 ML IV SCH (09:39)
[2021-03-05] MEDS: PROTONIX TAB 40 MG PO SCH (09:39)
[2021-03-05] MEDS: MICRO K EXTEN CAP 10 MEQ PO SCH (09:39)
[2021-03-05] MEDS: COLACE CAP 100 MG PO SCH (09:39)
[2021-03-05] MEDS: FOLIC ACID TAB 1 MG PO SCH (09:39)
[2021-03-05] MEDS: MILK OF MAGNESIA PO SCH (09:40)
[2021-03-05] MEDS: MAALOX or MYLANTA PO SCH (09:40)
[2021-03-05] MEDS: PERCOCET TAB 5/325 MG PO PRN (10:58)
== END 2021-03-05 12:40 | disposition home or self-care (01) | DRG 637 ==
LOC: U 13:20 → OBS 13:20 → ER 13:20 → OBSVTOIN 17:03 → OBS 19:51
PROVIDERS: ADMIT Internal Medicine; ATTEND Internal Medicine
DX: K44.9 Diaphragmatic hernia without obstruction or gangrene; E87.6 Hypokalemia; K21.00 Gastro-esophageal reflux disease with esophagitis, without bleeding; R10.84 Generalized abdominal pain; Z20.822 Contact with and (suspected) exposure to COVID-19; E11.10 Type 2 diabetes mellitus with ketoacidosis without coma; R11.2 Nausea with vomiting, unspecified; F41.8 Other specified anxiety disorders; R94.31 Abnormal electrocardiogram [ECG] [EKG]; E86.0 Dehydration; K29.60 Other gastritis without bleeding; K85.90 Acute pancreatitis without necrosis or infection, unspecified; E87.1 Hypo-osmolality and hyponatremia; R53.1 Weakness